=== PATIENT | female | born 1945 | race American Indian/Alaskan Native ===

== ENCOUNTER 2017-06-29 10:34 | Inpatient (IN) | payer MEDICARE, MEDICAID ==
--- NOTE | 2017-06-29 11:51 | C.PDOC ---
History Of Present Illness Patient [place] for evaluation of left ankle injury. As per patient and EMS, her left ankle is painful and swollen, and she does not know why. Patient states she went to bed last night and was fine. Time Seen by Provider: 06/29/17 11:06 Chief Complaint (Nursing): Lower Extremity Problem/Injury History Per: Patient, EMS History/Exam Limitations: no limitations Onset/Duration Of Symptoms: Unknown Current Symptoms Are (Timing): Still Present Severity: Moderate Past Medical History Reviewed: Historical Data, Nursing Documentation, Vital Signs Vital Signs: Last Vital Signs Temp 98.7 F 07/06/17 16:00 Pulse 88 07/06/17 16:00 Resp 18 07/06/17 16:00 BP 145/67 07/06/17 16:00 Pulse Ox 99 07/06/17 16:00 - Medical History PMH: HTN Family History: States: Other Other Family History: noncontributory - Social History Hx Alcohol Use: No Hx Substance Use: No - Immunization History Hx Tetanus Toxoid Vaccination: No Hx Influenza Vaccination: Yes Hx Pneumococcal Vaccination: No Review Of Systems Except As Marked, All Systems Reviewed And Found Negative. Constitutional: Negative for: Fever, Chills Cardiovascular: Negative for: Chest Pain, Palpitations Respiratory: Negative for: Shortness of Breath Musculoskeletal: Positive for: Other (left ankle pain, swelling) Physical Exam - Physical Exam Appears: Well, Non-toxic, In Acute Distress (in moderate pain) Skin: Warm, Dry, No Rash Oral Mucosa: Moist Cardiovascular: Rhythm Regular Respiratory: Normal Breath Sounds, No Rales, No Rhonchi, No Wheezing Gastrointestinal/Abdominal: Normal Exam, Bowel Sounds, Soft, No Tenderness Back: Other (left ankle deformed laterally and moderately swollen, (+) diffusely TTP, no erythema, ROM limited, sensation in toes/foot intact, cap refull < 2sec all digitd ) Extremity: Tenderness, No Calf Tenderness, Capillary Refill (< 2 sec all digits) , Deformity, Swelling Pulses: Left Dorsalis Pedis: Normal, Right Dorsalis Pedis: Normal Neurological/Psych: Oriented x3, Normal Sensation ED Course And Treatment - Laboratory Results Result Diagrams: 07/06/17 07:14 07/06/17 07:14 ECG: Interpreted By Me, Viewed By Me (NSR 74 bpm, normal axis, no acute ST/T wave changes) ECG Interpretation: Normal O2 Sat by Pulse Oximetry: 99 (RA) Pulse Ox Interpretation: Normal - Other Rad LEFT ANKLE X-RAY X-Ray: Viewed By Me, Read By Radiologist Interpretation: Findings: Suboptimal evaluation given suboptimal patient positioning. Complete fracture deformity through the medial malleolus of the distal tibia with inferior distraction of the medial malleolar fragment measuring approximately 1.4 centimeters. Complete transverse oblique fracture through the distal fibula with prominent lateral sided distraction of the fracture fragment distally measuring 7 millimeters. Adjacent comminuted fracture fragments. Prominent circumferential subcutaneous soft tissue swelling. Disruption of the ankle mortise both medially and laterally with displacement of the tibia and fibula. Comminuted fracture fragments seen at the anterior aspect of the ankle. Probable involvement of the syndesmosis. Linear sclerosis through the posterior superior calcaneus, nonspecific. Fracture deformity at this level can't be excluded. Impression: Suboptimal evaluation given suboptimal patient positioning. Complete fracture deformity through the medial malleolus of the distal tibia with inferior distraction of the medial malleolar fragment measuring approximately 1.4 centimeters. Complete transverse oblique fracture through the distal fibula with prominent lateral sided distraction of the fracture fragment distally measuring 7 millimeters. Adjacent comminuted fracture fragments. Prominent circumferential subcutaneous soft tissue swelling. Disruption of the ankle mortise both medially and laterally with displacement of the tibia and fibula. Comminuted fracture fragments seen at the anterior aspect of the ankle. Probable involvement of the syndesmosis. Linear sclerosis through the posterior superior calcaneus, nonspecific. Fracture deformity at this level can't be excluded. Correlation with bony CT may be helpful if clinically indicated. Progress Note: Blood work, Xray of ankle ordered and reviewed. Patient given IV NS bolus, IV morphine for pain. Etiology of fall unclear, as patient states she was fine yesterday night and woke up today with ankle injured. Patient is AAOx3, does have prior h/o syncope- ? syncopal episode at night. 12:05pm- Spoke with Dr. Dubon, he requests Mario smith PA to see patient and then would like CT scan of area after closed reduction. Mario spoken with, will call back after Xray looked at. 12:15pm- Donally will come in for closed reduction. Will have patient sign consents for conscious sedation, reduction. 2:39pm- Patient reduced a second time by myself and ortho NUSRAT Martin, tolerated procedure well. Patient given 50mg IV Proropofol - (+) successful reduction as per 2nd postreduction Xray. - Physician Consult Information Physician Contacted: Maria Antonia Patel Outcome Of Conversation: Spoke with PMD, requests Dr. Dubon for orthopedics. Critical Care Time - Critical Care Note Total Time (in mins): 45 Documented critical care: time excludes all time spent performing seperately billable procedures. Orthopedic Time Performed: 12:50 Time Out: Side verified (left ankle) Procedure: Splint, Joint reduction Type: Posterior Location: Left, Leg (ankle) Consent obtained: Written Performed by: Attending Physician Diagnosis: Fracture, Dislocation Type: Closed Location: Left Bone: Tibia, Fibula Anesthetic Technique: Procedural sedation Procedural Sedation: Propofol Other:: 50mg IVP Capillary refill: Normal Distal Sensation: Normal Distal Motor Function: Decreased Capillary Refill: Normal Compartment: Normal Distal Sensation: Normal Distal Motor Function: Normal Post-reduction Radiograph: Good Alignment Patient tolerated procedure: Well Disposition - Disposition Disposition: HOSPITALIZED Disposition Time: 13:35 Condition: STABLE - POA Present On Arrival: Falls Or Trauma - Clinical Impression Clinical Impression: Fracture of distal end of tibia, Fracture of fibula, distal, left, closed, Ankle dislocation, Syncope Decision To Admit - Pt Status Changed To: Hospital Disposition Of: Inpatient - Admit Certification Admit to Inpatient:: After my assessment, the patient will require hospitalization for at least two midnights. This is because of the severity of symptoms shown, intensity of services needed, and/or the medical risk in this patient being treated as an outpatient. - InPatient: Physician Admission Certification: I certify that this patient requires 2 or more midnights of care for the following reason:: see notes - . Bed Request Type: Telemetry Admitting Physician: Maria Antonia Patel Patient Diagnosis: Fracture of distal end of tibia, Fracture of fibula, distal, left, closed, Ankle dislocation, Syncope Proc Sedation PRE-PROCEDURE - Pre-Anesthesia Chief Complaint: Lower Extremity Problem/Injury Past Medical History: Medications Reviewed, Allergies Reviewed, Record Review Previous Surgies: Reviewed Family History/Social History: Reviewed - Physical Exam/Review of Systems Vital Signs Reviewed: Yes Cardiovascular: Regular Rate and Rhythm, Normal S1, S2 Respiratory/Chest: Clear to Auscultation, Good Air Exchange Neurological: GCS=15, CN II-XII Intact, Speech Normal Mental Status: Alert and Oriented X 3 - Pre-Procedure Airway Assessment History of difficult intubation or surgical airway (i.e trach):: No Inability to extend neck:: No Mouth opening less than two finger breadth:: No Diagnosis of sleep apnea:: No ASA Criteria: 1 - Healthy, normal. 2 - Mild systemic disease (No functional limitations, mildline obesity, DM withot complications, Hypertention). 3 - Severe systemic disease (Some functional limitation, stable angina, morbid obesity, controlled COPD/Asthma/CHF). 4 - Sever systemic disease constant threat to life (Unstable angina, active symptoms of COPD/Asthma, CHF/ Hypertension. 5 - Moribund Proc Sedation POST-PROCEDURE - Post Procedure Physician Note Post Procedure Note: Patient tolerated well - Discharge Checklist Written MD order for Discharge: No (patient to be admitted ) Vital signs assessed and are consistent with pre-procedure reading: Yes Minimal nausea, vomiting, and dizziness: Yes Alert and oriented to pre-procedural level: Yes Proc Sedation INTRA-PROCEDURE - Medications Medications Given: Discontinued Medications Acetaminophen (Tylenol 325mg Tab) 650 mg PO Q4 PRN PRN Reason: Fever >100.4 F Last Admin: 07/06/17 09:10 Dose: 650 mg [facility] Pain/Vitals Document 07/06/17 09:10 PM (Rec: 07/06/17 09:12 PM [id number]) Pain Reassessment Is This A Pain ReAssessment? No Sleep Is patient sleeping during reassessment? No Presence of Pain Presence of Pain Yes Pain Scale Used Pain Scale Used Numeric Location Left, Right or Bilateral Left Upper or Lower Lower Pain Location Body Site Foot Description Intermittent Intensity 8 Scale Used Numeric Radiation Location none Variations/Patterns none Site Observation fine Duration (Minutes) 5 Pain Behavior Facial Grimacing Aggravating Factors Changing Position Alleviating Factors Medication Re-Assess: [facility] Pain/Vitals Document 07/06/17 10:10 KF (Rec: 07/06/17 12:22 KF [id number]) Pain Reassessment Is This A Pain ReAssessment? Yes Sleep Is patient sleeping during reassessment? No Presence of Pain Presence of Pain No Pain Scale Used Pain Scale Used Numeric Acetaminophen (Tylenol 325mg Tab) 650 mg PO Q4 PRN PRN Reason: Pain, Mild (1-3) Last Admin: 07/06/17 04:21 Dose: 650 mg MAR Pain/Vitals Document 07/06/17 04:21 JA (Rec: 07/06/17 04:23 [facility] [id number]) Pain Reassessment Is This A Pain ReAssessment? No Sleep Is patient sleeping during reassessment? No Presence of Pain Presence of Pain Yes Pain Scale Used Pain Scale Used Numeric Location Left, Right or Bilateral Left Pain Location Body Site Foot Description Intermittent Intensity 3 Scale Used Numeric Pain Behavior Facial Grimacing Aggravating Factors Changing Position Alleviating Factors Medication Re-Assess: [facility] Pain/Vitals Document 07/06/17 05:21 JA (Rec: 07/06/17 05:25 [facility] [id number]) Pain Reassessment Is This A Pain ReAssessment? Yes Sleep Is patient sleeping during reassessment? Yes Amlodipine Besylate (Norvasc) 2.5 mg PO DAILY [facility] Last Admin: 07/01/17 09:55 Dose: 2.5 mg Amlodipine Besylate (Norvasc) 10 mg PO DAILY [facility] Last Admin: 07/06/17 09:09 Dose: 10 mg Dextrose (Glutose 15) 15 gm PO STAT STA Stop: 07/01/17 21:25 Last Admin: 07/01/17 21:32 Dose: 15 gm Dextrose (Dextrose 50% Inj) 50 ml IV STAT STA Stop: 07/01/17 21:49 Last Admin: 07/01/17 21:55 Dose: 50 ml eMAR Start Stop Document 07/01/17 21:55 MSO (Rec: 07/01/17 21:55 MSO [id number]) Intravenous Solution Start Date 07/01/17 Start Time 21:55 Enoxaparin Sodium (Lovenox) 40 mg SC ONCE ONE Stop: 06/29/17 18:57 Last Admin: 06/29/17 19:12 Dose: 40 mg Subcutaneous Administrations Document 06/29/17 19:12 MAP (Rec: 06/29/17 19:12 MAP [id number]) Injection Site MAR Injection Site Right Abdomen Charges for Administration # of Subcutaneous Administrations 1 Glucagon (Glucagen Diagnostic Kit) 1 mg SC ONCE PRN PRN Reason: HYPOGLYCEMIA Glycerin (Glycerin Adult Suppository) 1 sup RC DAILY PRN PRN Reason: Constipation Home Med (Glucagon Hcl) 1 mg IM PRN PRN PRN Reason: Hypoglycemia Hydrochlorothiazide (Microzide) 12.5 mg PO DAILY [facility] Last Admin: 07/06/17 09:09 Dose: 12.5 mg Hydromorphone HCl (Dilaudid) 1 mg IVP Q4H PRN PRN Reason: Pain, severe (8-10) Hydromorphone HCl (Dilaudid) 1 mg IVP Q4H PRN PRN Reason: Pain, severe (8-10) Last Admin: 07/04/17 07:44 Dose: 1 mg [facility] Pain Assessment Document 07/04/17 07:44 EAB (Rec: 07/04/17 07:55 EAB [id number]) Pain Reassessment Is this a pain reassessment? No Sleep Is patient sleeping during reassessment? No Presence of Pain Presence of Pain Yes Pain Scale Used Pain Scale Used Numeric Location Left, Right or Bilateral Left Pain Location Body Site Foot Description Description Constant Intensity of Pain at present 8 Acceptable Level of Pain 2 Pain Behavior Facial Grimacing Aggravating Factors Changing Position Alleviating Factors/Management Position Change Techniques Alleviating Factors Position Change IVP Administration Document 07/04/17 07:44 EAB (Rec: 07/04/17 07:55 EAB [id number]) Charges for Administration # of IVP Administrations 1 Re-Assess: [facility] Pain Assessment Document 07/04/17 08:14 EAB (Rec: 07/04/17 09:18 EAB [id number]) Pain Reassessment Is this a pain reassessment? Yes Sleep Is patient sleeping during reassessment? Yes Hydromorphone HCl (Dilaudid) 0.5 mg IVP Q10M PRN PRN Reason: Pain, moderate (4-7) Stop: 07/03/17 18:41 Last Admin: 07/03/17 18:45 Dose: 0.5 mg Bacitracin 50,000 unit/ Sodium (Chloride) 1,000 mls @ 1,000 mls/hr IR .Q1H [facility] Stop: 07/03/17 16:13 Insulin Aspart (Novolog) 0 unit SC ACHS [facility] PRN Reason: Protocol Last Admin: 06/29/17 22:46 Dose: 3 unit MAR Blood Glucose Document 06/29/17 22:46 EDG (Rec: 06/29/17 22:47 EDG [id number]) Blood Glucose Finger Stick Blood Glucose (70-120) 436 Subcutaneous Administrations Document 06/29/17 22:46 EDG (Rec: 06/29/17 22:47 EDG [id number]) Injection Site MAR Injection Site Right Arm Charges for Administration # of Subcutaneous Administrations 1 Insulin Aspart (Novolog Mix 70/30 (70/30 Units/Ml)) 15 units SC BID [facility] Last Admin: 07/01/17 17:46 Dose: 15 units MAR Blood Glucose Document 07/01/17 17:46 MSO (Rec: 07/01/17 17:47 MSO [id number]) Blood Glucose Finger Stick Blood Glucose (70-120) 171 Subcutaneous Administrations Document 07/01/17 17:46 MSO (Rec: 07/01/17 17:47 MSO [id number]) Injection Site MAR Injection Site Right Arm Charges for Administration # of Subcutaneous Administrations 1 Insulin Aspart (Novolog) 0 unit SC ACHS [facility] PRN Reason: Protocol Last Admin: 07/06/17 16:53 Dose: 2 unit Comments: 192 MAR Blood Glucose Document 07/06/17 16:53 [facility]AY[facility] (Rec: 07/06/17 16:53 [facility] [id number]) Blood Glucose Finger Stick Blood Glucose (70-120) 192 Subcutaneous Administrations Document 07/06/17 16:53 [facility] (Rec: 07/06/17 16:53 [id number] Injection Site MAR Injection Site Right Arm Charges for Administration # of Subcutaneous Administrations 1 Insulin Aspart (Novolog Mix 70/30 (70/30 Units/Ml)) 17 units SC BID [facility] Last Admin: 07/06/17 09:16 Dose: 17 units Subcutaneous Administrations Document 07/06/17 09:16 PM (Rec: 07/06/17 09:16 PM [id number]) Injection Site MAR Injection Site Right Arm Charges for Administration # of Subcutaneous Administrations 1 Losartan Potassium (Cozaar) 25 mg PO DAILY [facility] Last Admin: 07/06/17 09:09 Dose: 25 mg Magnesium Hydroxide (Milk Of Magnesia) 30 ml PO DAILY PRN PRN Reason: Constipation Metformin HCl (Glucophage) 1,000 mg PO BID [facility] Last Admin: 07/01/17 17:46 Dose: 1,000 mg Morphine Sulfate (Morphine) 2 mg IVP STAT STA Stop: 06/29/17 11:46 Last Admin: 06/29/17 12:05 Dose: 2 mg MAR Pain Assessment Document 06/29/17 12:05 MAP (Rec: 06/29/17 12:14 MAP [id number]) Pain Reassessment Is this a pain reassessment? No IVP Administration Document 06/29/17 12:05 MAP (Rec: 06/29/17 12:14 MAP [id number]) Charges for Administration # of IVP Administrations 1 Morphine Sulfate (Morphine) 2 mg IVP STAT STA Stop: 06/29/17 13:38 Last Admin: 06/29/17 14:22 Dose: 2 mg MAR Pain Assessment Document 06/29/17 14:22 MAP (Rec: 06/29/17 14:25 MAP [id number]) Pain Reassessment Is this a pain reassessment? Yes Sleep Is patient sleeping during reassessment? Yes Pain Scale Used Pain Scale Used Numeric Description Intensity of Pain at present 7 IVP Administration Document 06/29/17 14:22 MAP (Rec: 06/29/17 14:25 MAP [id number]) Charges for Administration # of IVP Administrations 1 Oxycodone/Acetaminophen (Percocet 5/325 Mg Tab) 1 tab PO Q4H PRN PRN Reason: Pain, Moderate 4-7 Stop: 07/03/17 12:02 Last Admin: 07/02/17 17:36 Dose: 1 tab MAR Pain Assessment Document 07/02/17 17:36 MSO (Rec: 07/02/17 17:36 MSO [id number]) Pain Reassessment Is this a pain reassessment? No Sleep Is patient sleeping during reassessment? No Presence of Pain Presence of Pain Yes Pain Scale Used Pain Scale Used Numeric Location Left, Right or Bilateral Left Pain Location Body Site Leg Ankle Foot Description Description Constant Intensity of Pain at present 4 Acceptable Level of Pain 3 Pain Behavior Facial Grimacing Aggravating Factors Exercise/Activity Alleviating Factors/Management Medication Techniques Elevation Alleviating Factors Medication Oxycodone/Acetaminophen (Percocet 5/325 Mg Tab) 1 tab PO Q6H PRN PRN Reason: Pain, moderate (4-7) Stop: 07/08/17 11:50 Last Admin: 07/05/17 23:21 Dose: 1 tab [facility] Pain Assessment Document 07/05/17 23:21 [facility] (Rec: 07/05/17 23:22 [facility] [id number]) Pain Reassessment Is this a pain reassessment? No Sleep Is patient sleeping during reassessment? No Presence of Pain Presence of Pain Yes Pain Scale Used Pain Scale Used Numeric Location Left, Right or Bilateral Left Pain Location Body Site Foot Description Description Intermittent Intensity of Pain at present 7 Pain Behavior Facial Grimacing Aggravating Factors Changing Position Alleviating Factors/Management Medication Techniques Distraction Relaxation Techniques Alleviating Factors Medication Re-Assess: [facility] Pain Assessment Document 07/06/17 00:21 [facility] (Rec: 07/06/17 02:26 [facility] [id number]) Pain Reassessment Is this a pain reassessment? Yes Sleep Is patient sleeping during reassessment? Yes Oxycodone/Acetaminophen (Percocet 5/325 Mg Tab) 2 tab PO Q4H PRN PRN Reason: Pain, severe (8-10) Stop: 07/08/17 11:50 Last Admin: 07/06/17 16:36 Dose: 2 tab [facility] Pain Assessment Document 07/06/17 16:36 [facility] (Rec: 07/06/17 16:37 [facility] [id number]) Pain Reassessment Is this a pain reassessment? No Sleep Is patient sleeping during reassessment? No Presence of Pain Presence of Pain Yes Pain Scale Used Pain Scale Used Numeric Location Left, Right or Bilateral Left Pain Location Body Site Foot Description Description Intermittent Intensity of Pain at present 10 Acceptable Level of Pain 2 Pain Behavior Withdrawal from Touch Facial Grimacing Aggravating Factors Changing Position Alleviating Factors/Management Medication Techniques Distraction Relaxation Techniques Alleviating Factors Medication Pantoprazole Sodium (Protonix Ec Tab) 40 mg PO DAILY [facility] Last Admin: 07/06/17 09:09 Dose: 40 mg Pneumococcal Polyvalent Vaccine (Pneumovax 23 Vaccine) 0.5 ml IM .ONCE ONE Stop: 07/01/17 10:01 Last Admin: 07/01/17 10:49 Dose: Potassium Chloride (Potassium Chloride Oral Soln) 20 meq PO ONCE ONE Stop: 07/01/17 14:44 Last Admin: 07/01/17 15:02 Dose: 20 meq Potassium Chloride (Klor-Con 10) 40 meq PO STAT STA Stop: 07/05/17 19:02 Last Admin: 07/05/17 19:26 Dose: 40 meq Propofol (Diprivan) 200 mg IV ONCE ONE Stop: 06/29/17 12:19 Propofol (Diprivan) 100 mg IV ONCE ONE Stop: 06/29/17 15:53 Sitagliptin Phosphate (Januvia) 50 mg PO DAILY [facility] Last Admin: 07/01/17 09:55 Dose: 50 mg Vital Signs: 50MG PROPOOL IVP GIVEN BY ME
[2017-06-29] MEDS ORDERED: Propofol 10 mg/ml Inj (20 ML) IV ONE ×2 (12:18→15:52)
[2017-06-29 12:35] LABS: BASO # 0.1 K/uL (0.0-0.2); BASO % 0.9 % (0.0-2.0); EOS # 0.1 K/uL (0.0-0.7); EOS % 0.5 % (0.0-4.0); HEMATOCRIT 35.8 % (34.0-47.0); LYMPH # 1.7 K/uL (1.0-4.3); LYMPH % 13.8 % (20.0-40.0); MEAN CELL VOLUME 91.7 fL (81.0-99.0); MEAN CORPUSCULAR HEMOGLOBIN 31.2 pg (27.0-31.0); MEAN PLATELET VOLUME 9.2 fL (7.2-11.7); MONO # 0.6 K/uL (0.0-0.8); RED CELL DISTRIBUTION WIDTH 13.6 % (11.5-14.5); WHITE BLOOD COUNT 12.6 K/uL (4.8-10.8)
[2017-06-29 12:43] LABS: CHLORIDE 101 mmol/L (98-107); INR 1.1; POTASSIUM 4.4 mmol/L (3.6-5.2); SODIUM 138 mmol/L (132-148)
[2017-06-29 12:45] LABS: ALB/GLOB RATIO 1.2 (1.0-2.1); ALKALINE PHOSPHATASE 104 U/L (38-126); AST/SGOT 25 U/L (14-36); BILIRUBIN,TOTAL 0.5 mg/dL (0.2-1.3); CARBON DIOXIDE 25 mmol/L (22-30); GFR AFRICAN-AMERICAN > 60; TOTAL PROTEIN 6.7 g/dL (6.3-8.3)
[2017-06-29 12:46] LABS: ALT/SGPT 24 U/L (9-52); BLOOD UREA NITROGEN 8 mg/dL (7-17); CALCIUM 9.1 mg/dl (8.6-10.4); GLUCOSE,RANDOM 316 mg/dL (65-105)
[2017-06-29] MEDS ORDERED: Propofol 10 mg/ml Inj (20 ML) ONE ×2 (12:47→14:41)
--- NOTE | 2017-06-29 13:00 | RAD ---
Left ankle three views History: Fracture dislocation. Comparison: None available. Findings: Suboptimal evaluation given suboptimal patient positioning. Complete fracture deformity through the medial malleolus of the distal tibia with inferior distraction of the medial malleolar fragment measuring approximately 1.4 centimeters. Complete transverse oblique fracture through the distal fibula with prominent lateral sided distraction of the fracture fragment distally measuring 7 millimeters. Adjacent comminuted fracture fragments. Prominent circumferential subcutaneous soft tissue swelling. Disruption of the ankle mortise both medially and laterally with displacement of the tibia and fibula. Comminuted fracture fragments seen at the anterior aspect of the ankle. Probable involvement of the syndesmosis. Linear sclerosis through the posterior superior calcaneus, nonspecific. Fracture deformity at this level can't be excluded. Impression: Suboptimal evaluation given suboptimal patient positioning. Complete fracture deformity through the medial malleolus of the distal tibia with inferior distraction of the medial malleolar fragment measuring approximately 1.4 centimeters. Complete transverse oblique fracture through the distal fibula with prominent lateral sided distraction of the fracture fragment distally measuring 7 millimeters. Adjacent comminuted fracture fragments. Prominent circumferential subcutaneous soft tissue swelling. Disruption of the ankle mortise both medially and laterally with displacement of the tibia and fibula. Comminuted fracture fragments seen at the anterior aspect of the ankle. Probable involvement of the syndesmosis. Linear sclerosis through the posterior superior calcaneus, nonspecific. Fracture deformity at this level can't be excluded. Correlation with bony CT may be helpful if clinically indicated.
--- NOTE | 2017-06-29 13:14 | CP.PCM.CON ---
History of Present Illness - History of Present Illness History of Present Illness: Orthopedic consultation requested Dr. Mcginnis for left ankle pain/deformity 71F PMH: HTN complains of left ankle pain and deformity when she woke up this morning. She does not recall history of fall or trauma. She is unable to walk due to pain at this time. She ambulates "a lot" with cane prior to this injury. [facility] resident. Denies pain in other extremities. Denies numbness/tingling. Denies headache/CP/SOB/dizziness/fever/chills/n/v at this time. PMH: HTN allergies: iodine contrast dye Review of Systems - Review of Systems All systems: reviewed and no additional remarkable complaints except - Constitutional Constitutional: As Per HPI - Cardiovascular Cardiovascular: As Per HPI - Respiratory Respiratory: As Per HPI - Gastrointestinal Gastrointestinal: As Per HPI - Musculoskeletal Musculoskeletal: As Per HPI - Integumentary Integumentary: Swelling - Neurological Neurological: As Per HPI - Hematologic/Lymphatic Hematologic: absent: As Per HPI, Easy Bleeding, Easy Bruising, Lymphadenopathy, Other Past Patient History - Infectious Disease Hx of Infectious Diseases: None - Past Medical History & Family History Past Medical History?: Yes Past Family History: Reviewed and not pertinent - Past Social History Smoking Status: Former Smoker - CARDIAC Hx Hypertension: Yes - NEUROLOGICAL Hx Syncope: Yes - ENDOCRINE/METABOLIC Hx Diabetes Mellitus Type 2: Yes - PSYCHIATRIC Hx Substance Use: No - SURGICAL HISTORY Hx Surgeries: No - ANESTHESIA Hx Anesthesia: No Meds Allergies/Adverse Reactions: Allergies Allergy/AdvReac Type Severity Reaction Status Date / Time Iodinated Contrast- Oral and Allergy Intermediate Verified 06/29/17 11:17 IV Dye shellfish derived Allergy Intermediate Verified 06/29/17 11:17 Physical Exam - Constitutional Appears: Well, In Acute Distress - Head Exam Head Exam: ATRAUMATIC, NORMAL INSPECTION - Respiratory Exam Respiratory Exam: NORMAL BREATHING PATTERN - Cardiovascular Exam Cardiovascular Exam: REGULAR RHYTHM - Extremities Exam Additional comments: LLE: obviously deformed left ankle dislocation. Patient states she can't move her toes and has severe pain when she attempts. +DP/PT pulses, but weak. +cap refill but toes cool. sensation intact to foot. Noted swelling to ankle. Left knee: no swelling/deformity/discoloration BUE: full ROM, NVID, no swelling/deformity/discoloration RLE: full ROM, NVID, no swelling/ deformity/discoloration Consent for conscious sedation and closed reduction of ankle obtained. Risks/ benefits/alt of closed reduction explained to patient, especially in light of potential vascular compromise. Advised patient that fracture itself will need surgical fixation in the future regardless of reduction. Patient consents to procedure. Post reduction, patient able to fully flex/ext toes. Sensation intact, +DP/PT pulses and toes and foot warmer. Patient more comfortable Well padded posterior/u splint applied and ankle elevated. - Expanded Lower Extremities Exam Left Ankle exam: dislocation, swelling - Neurological Exam Neurological exam: Alert, Oriented x3 - Psychiatric Exam Psychiatric exam: Normal Affect, Normal Mood - Skin Skin Exam: Dry, Intact, Normal Color, Warm Results - Vital Signs Recent Vital Signs: Last Vital Signs Temp 98.4 F 06/29/17 12:00 Pulse 78 06/29/17 12:00 Resp 18 06/29/17 12:00 BP 156/51 H 06/29/17 12:00 Pulse Ox 99 06/29/17 12:18 - Labs Result Diagrams: 06/29/17 12:22 06/29/17 12:22 Labs: Laboratory Results - last 24 hr 06/29/17 06/29/17 06/29/17 12:22 12:22 12:22 WBC 12.6 H RBC 3.91 Hgb 12.2 Hct 35.8 MCV 91.7 MCH 31.2 H MCHC 34.0 RDW 13.6 Plt Count 309 MPV 9.2 Neut % (Auto) 79.8 H Lymph % (Auto) 13.8 L Yates % (Auto) 5.0 Eos % (Auto) 0.5 Baso % (Auto) 0.9 Neut # 10.0 H Lymph # 1.7 Yates # 0.6 Eos # 0.1 Baso # 0.1 PT 11.9 INR 1.1 APTT 31 Sodium 138 Potassium 4.4 Chloride 101 Carbon Dioxide 25 Anion Gap 17 BUN 8 Creatinine 0.7 Est GFR ( Amer) > 60 Est GFR (Non-Af Amer) > 60 Random Glucose 316 H Calcium 9.1 Total Bilirubin 0.5 AST 25 ALT 24 Alkaline Phosphatase 104 Total Protein 6.7 Albumin 3.6 Globulin 3.1 Albumin/Globulin Ratio 1.2 Assessment & Plan (1) Displaced trimalleolar fracture of left ankle Assessment and Plan: Called by Dr. Mcginnis to complete reduction and consultation CR #1 post reduction films demonstrated continued dislocation of left ankle patient reconsented, agreed to procedure again CR#2 post reduction films demonstrate reduction of dislocation with some lateral translation of talus, unstable fracture easily dislocates again during reduction splint reapplied post/u d/w Dr. Mcginnis CT left ankle report states possible calcaneous fx, will review CT to include calcaneous elevation, ice, maintain splint patient admitted under medicine as she has no recollection of fall or trauma will need ORIF when swelling improved PT VTE proph will follow Status: Acute (2) Dislocation of ankle, left, closed Assessment and Plan: see above, s/p CR Status: Acute Radiology Interpretation - Radiology Interpretation #2 Interpretation: Patient Name / ID : ROMI SANTOS / [id number] Exam Date : 06/29/2017 11:45:29 ( Approved ) Study Comment : Sex / Age : F / 71Y Creator : David Levine MD Dictator : David Levine MD Journeyman Electrician Pv Installer : [employer] : David Levine MD Approver2 : Report Date : 06/29/2017 12:58:41 My Comment : Left ankle three views History: Fracture dislocation. Comparison: None available. Findings: Suboptimal evaluation given suboptimal patient positioning. Complete fracture deformity through the medial malleolus of the distal tibia with inferior distraction of the medial malleolar fragment measuring approximately 1.4 centimeters. Complete transverse oblique fracture through the distal fibula with prominent lateral sided distraction of the fracture fragment distally measuring 7 millimeters. Adjacent comminuted fracture fragments. Prominent circumferential subcutaneous soft tissue swelling. Disruption of the ankle mortise both medially and laterally with displacement of the tibia and fibula. Comminuted fracture fragments seen at the anterior aspect of the ankle. Probable involvement of the syndesmosis. Linear sclerosis through the posterior superior calcaneus, nonspecific. Fracture deformity at this level can't be excluded. Impression: Suboptimal evaluation given suboptimal patient positioning. Complete fracture deformity through the medial malleolus of the distal tibia with inferior distraction of the medial malleolar fragment measuring approximately 1.4 centimeters. Complete transverse oblique fracture through the distal fibula with prominent lateral sided distraction of the fracture fragment distally measuring 7 millimeters. Adjacent comminuted fracture fragments. Prominent circumferential subcutaneous soft tissue swelling. Disruption of the ankle mortise both medially and laterally with displacement of the tibia and fibula. Comminuted fracture fragments seen at the anterior aspect of the ankle. Probable involvement of the syndesmosis. Linear sclerosis through the posterior superior calcaneus, nonspecific. Fracture deformity at this level can't be excluded. Correlation with bony CT may be helpful if clinically indicated. - Radiology Interpretation #3 Interpretation: Patient Name / ID : ROMI SANTOS / [id number] Exam Date : 06/29/2017 13:50:36 ( Approved ) Study Comment : Sex / Age : F / 71Y Creator : David Levine MD Dictator : David Levine MD Journeyman Electrician Pv Installer : [employer]teration : David Levine MD Approver2 : Report Date : 06/29/2017 15:01:57 My Comment : Left ankle three views History: Postreduction. Comparison: 06/29/2017 Findings: Overlying cast obscures fine osseous detail. Anterior distraction of the distal tibia in relationship to the talus. Complete fracture deformity through the medial malleolus of the distal tibia with inferior distraction of the medial malleolar fragment measuring approximately 1.4 centimeters. Complete transverse oblique fracture through the distal fibula with prominent lateral sided distraction of the fracture fragment posteriorly measuring 11 millimeters. Adjacent comminuted fracture fragments. Prominent circumferential subcutaneous soft tissue swelling. Disruption of the ankle mortise both medially and laterally with displacement of the tibia and fibula. Comminuted fracture fragments seen at the anterior aspect of the ankle. Probable involvement of the syndesmosis. Linear sclerosis through the posterior superior calcaneus, nonspecific. Fracture deformity at this level can't be excluded. Impression: Overlying cast obscures fine osseous detail. Anterior distraction of the distal tibia in relationship to the talus. Complete fracture deformity through the medial malleolus of the distal tibia with inferior distraction of the medial malleolar fragment measuring approximately 1.4 centimeters. Complete transverse oblique fracture through the distal fibula with prominent lateral sided distraction of the fracture fragment posteriorly measuring 11 millimeters. Adjacent comminuted fracture fragments. Prominent circumferential subcutaneous soft tissue swelling. Disruption of the ankle mortise both medially and laterally with displacement of the tibia and fibula. Comminuted fracture fragments seen at the anterior aspect of the ankle. Probable involvement of the syndesmosis. Linear sclerosis through the posterior superior calcaneus, nonspecific. Fracture deformity at this level can't be excluded. Procedures Attestation:: I certify that I have explained the specified Operation(s) or Procedure(s), risks, benefits and reasonable alternatives to the Patient and/or other person responsible. The opportunity was given to ask questions and all questions answered - Orthopedic Joint Reduction Joint #1 Consent Obtained: written consent Time Out Performed: Yes Side: left Joint Reduction Location: ankle Analgesia: procedural sedation Technique Used: direct manipulation (clinically evident reduction) Post-Reduction Neuro Exam: intact Post-Reduction Vascular Exam: intact Post Reduction X-Ray Obtained: Yes Post Reduction X-Ray Results: not reduced (Patient reconsented and explained to patient that reduction was not maintained, and that CR will be attempted again. patient agreed to repeat procedure.) Splint Applied: Yes Patient Tolerated Procedure: well Joint #2 Consent Obtained: written consent Time Out Performed: Yes Side: left Joint Reduction Location: ankle Analgesia: procedural sedation Technique Used: direct manipulation Post-Reduction Neuro Exam: intact Post-Reduction Vascular Exam: intact Post Reduction X-Ray Obtained: Yes Post Reduction X-Ray Results: reduced (lateral translation still noted) Splint Applied: Yes (new posterior and u splint applied, fracture dislocation noted unstable) Patient Tolerated Procedure: well - Orthopedic Splinting/Casting Injury #1 Side: left Lower Extremity Injury Location: ankle Lower Extremity Immobilizer: posterior splint, stirrup splint Additional comments: well padded posterior/u splint applied post reduction, ankle elevated
[2017-06-29] MEDS ORDERED: Propranolol 1 mg/mL Inj IVP ONE (14:49)
--- NOTE | 2017-06-29 15:03 | RAD ---
Left ankle three views History: Postreduction. Comparison: 06/29/2017 Findings: Overlying cast obscures fine osseous detail. Anterior distraction of the distal tibia in relationship to the talus. Complete fracture deformity through the medial malleolus of the distal tibia with inferior distraction of the medial malleolar fragment measuring approximately 1.4 centimeters. Complete transverse oblique fracture through the distal fibula with prominent lateral sided distraction of the fracture fragment posteriorly measuring 11 millimeters. Adjacent comminuted fracture fragments. Prominent circumferential subcutaneous soft tissue swelling. Disruption of the ankle mortise both medially and laterally with displacement of the tibia and fibula. Comminuted fracture fragments seen at the anterior aspect of the ankle. Probable involvement of the syndesmosis. Linear sclerosis through the posterior superior calcaneus, nonspecific. Fracture deformity at this level can't be excluded. Impression: Overlying cast obscures fine osseous detail. Anterior distraction of the distal tibia in relationship to the talus. Complete fracture deformity through the medial malleolus of the distal tibia with inferior distraction of the medial malleolar fragment measuring approximately 1.4 centimeters. Complete transverse oblique fracture through the distal fibula with prominent lateral sided distraction of the fracture fragment posteriorly measuring 11 millimeters. Adjacent comminuted fracture fragments. Prominent circumferential subcutaneous soft tissue swelling. Disruption of the ankle mortise both medially and laterally with displacement of the tibia and fibula. Comminuted fracture fragments seen at the anterior aspect of the ankle. Probable involvement of the syndesmosis. Linear sclerosis through the posterior superior calcaneus, nonspecific. Fracture deformity at this level can't be excluded.
--- NOTE | 2017-06-29 15:39 | RAD ---
PROCEDURE: Left Ankle Radiographs. HISTORY: LEFT ANKLE POST REDUCTION #2 COMPARISON: June 28, 2017. Study performed 13:54 FINDINGS: BONES: Improved anatomic alignment of fracture dislocation left ankle, findings best seen on the lateral view. JOINTS: Disruption of the ankle mortise medially and laterally is lessened compared to the prior study from approximately 1 hour ago. SOFT TISSUES: Soft tissue swelling attests to the acuity of the fracture dislocation. OTHER FINDINGS: None. IMPRESSION: Improved anatomic alignment fracture dislocation left ankle. Limitations of the current study: Detail obscured by overlying fiberglass cast.
[2017-06-29 18:20] LABS: RBC URINE < 1 /hpf (0-3); URINE BILIRUBIN NEGATIVE (NEGATIVE); URINE BLOOD NEGATIVE (NEGATIVE); URINE COLOR Yellow (YELLOW); URINE GLUCOSE (UA) 2+ mg/dL (Normal); URINE KETONE NEGATIVE (NEGATIVE); URINE LEUKOCYTE ESTERASE TRACE Leu/uL (Negative); URINE PROTEIN NEGATIVE (NEGATIVE); URINE UROBILINOGEN NORMAL mg/dL (0.2-1.0); WBC URINE 13 /hpf (0-5)
[2017-06-29] MEDS ORDERED: Enoxaparin 40 mg Syringe SC ONE (18:56)
[2017-06-29] MEDS ORDERED: GLUCAGON HCL 1 MG IM PRN (18:59)
[2017-06-29] MEDS ORDERED: Magnesium Hydroxide Susp 30 ml UD PO PRN (18:59)
[2017-06-29] MEDS ORDERED: Enoxaparin 40 mg Syringe ONE (19:10)
--- NOTE | 2017-06-29 19:44 | CP.PCM.HP ---
Past Patient History - Infectious Disease Hx of Infectious Diseases: None - Past Medical History & Family History Past Medical History?: Yes Past Family History: Reviewed and not pertinent - Past Social History Smoking Status: Former Smoker - CARDIAC Hx Hypertension: Yes - NEUROLOGICAL Hx Syncope: Yes - ENDOCRINE/METABOLIC Hx Diabetes Mellitus Type 2: Yes - PSYCHIATRIC Hx Substance Use: No - SURGICAL HISTORY Hx Surgeries: No - ANESTHESIA Hx Anesthesia: No Meds Allergies/Adverse Reactions: Allergies Allergy/AdvReac Type Severity Reaction Status Date / Time Iodinated Contrast- Oral and Allergy Intermediate Verified 06/29/17 11:17 IV Dye shellfish derived Allergy Intermediate Verified 06/29/17 11:17 Physical Exam - Constitutional Appears: Well - Head Exam Head Exam: ATRAUMATIC, NORMAL INSPECTION, NORMOCEPHALIC - Eye Exam Eye Exam: EOMI, Normal appearance, PERRL Pupil Exam: NORMAL ACCOMODATION, PERRL - ENT Exam ENT Exam: Mucous Membranes Moist, Normal Exam - Neck Exam Neck exam: Positive for: Normal Inspection - Respiratory Exam Respiratory Exam: Decreased Breath Sounds - Cardiovascular Exam Cardiovascular Exam: REGULAR RHYTHM, +S1, +S2 - GI/Abdominal Exam GI & Abdominal Exam: Diminished Bowel Sounds, Soft - Rectal Exam Rectal Exam: Deferred Results - Vital Signs Recent Vital Signs: Last Vital Signs Temp 98.6 F 06/29/17 17:38 Pulse 70 06/29/17 17:38 Resp 16 06/29/17 17:38 BP 122/54 L 06/29/17 17:38 Pulse Ox 99 06/29/17 18:34 - Labs Result Diagrams: 06/29/17 12:22 06/29/17 12:22 Labs: Laboratory Results - last 24 hr 06/29/17 06/29/17 06/29/17 12:22 12:22 12:22 WBC 12.6 H RBC 3.91 Hgb 12.2 Hct 35.8 MCV 91.7 MCH 31.2 H MCHC 34.0 RDW 13.6 Plt Count 309 MPV 9.2 Neut % (Auto) 79.8 H Lymph % (Auto) 13.8 L Green % (Auto) 5.0 Eos % (Auto) 0.5 Baso % (Auto) 0.9 Neut # 10.0 H Lymph # 1.7 Green # 0.6 Eos # 0.1 Baso # 0.1 PT 11.9 INR 1.1 APTT 31 Sodium 138 Potassium 4.4 Chloride 101 Carbon Dioxide 25 Anion Gap 17 BUN 8 Creatinine 0.7 Est GFR ( Amer) > 60 Est GFR (Non-Af Amer) > 60 Random Glucose 316 H Calcium 9.1 Total Bilirubin 0.5 AST 25 ALT 24 Alkaline Phosphatase 104 Total Protein 6.7 Albumin 3.6 Globulin 3.1 Albumin/Globulin Ratio 1.2 Urine Color Urine Clarity Urine pH Ur Specific [place] Urine Protein Urine Glucose (UA) Urine Ketones Urine Blood Urine Nitrate Urine Bilirubin Urine Urobilinogen Ur Leukocyte Esterase Urine WBC (Auto) Urine RBC (Auto) Ur Squamous Epith Cells Blood Type Antibody Screen 06/29/17 06/29/17 12:22 17:41 WBC RBC Hgb Hct MCV MCH MCHC RDW Plt Count MPV Neut % (Auto) Lymph % (Auto) Green % (Auto) Eos % (Auto) Baso % (Auto) Neut # Lymph # Green # Eos # Baso # PT INR APTT Sodium Potassium Chloride Carbon Dioxide Anion Gap BUN Creatinine Est GFR ( Amer) Est GFR (Non-Af Amer) Random Glucose Calcium Total Bilirubin AST ALT Alkaline Phosphatase Total Protein Albumin Globulin Albumin/Globulin Ratio Urine Color Yellow Urine Clarity Clear Urine pH 5.0 Ur Specific [place] 1.009 Urine Protein Negative Urine Glucose (UA) 2+ H Urine Ketones Negative Urine Blood Negative Urine Nitrate Negative Urine Bilirubin Negative Urine Urobilinogen Normal Ur Leukocyte Esterase Trace Urine WBC (Auto) 13 H Urine RBC (Auto) < 1 Ur Squamous Epith Cells 2 Blood Type O POSITIVE Antibody Screen Negative
[2017-06-29] MEDS ORDERED: (Novolog) Insulin Aspart, Recombinant 100 u/ml 10 ml vial SC SCH (22:00)
[2017-06-29] MEDS ORDERED: (Novolog) Insulin Aspart, Recombinant 100 u/ml 10 ml vial ONE (22:46)
[2017-06-29] MEDS ORDERED: HYDROmorphone 1 mg/ml ISec IVP PRN (23:03)
[2017-06-30] MEDS: (Novolog) Insulin Aspart, Recombinant 100 u/ml 10 ml vial SC SCH ×4 (07:47→22:25)
[2017-06-30] MEDS: HYDROmorphone 0.5 mg/0.5 ml ISec IVP PRN (08:23)
[2017-06-30] MEDS: Pantoprazole 40 mg EC Tab PO SCH (10:53)
[2017-06-30] MEDS: (Novolog Mix 70/30) Insulin Aspart/Insulin Aspar 100 units/ml SC SCH ×2 (10:53→17:56)
--- NOTE | 2017-06-30 12:00 | CP.PCM.PN ---
Subjective - Date & Time of Evaluation Date of Evaluation: 06/30/17 Time of Evaluation: 07:30 - Subjective Subjective: Patient complains of continued ankle pain. Medication helps. Objective - Vital Signs/Intake and Output Vital Signs (last 24 hours): Temp Pulse Resp BP Pulse Ox 98.6 F 71 18 152/65 H 97 06/30/17 07:00 06/30/17 07:00 06/30/17 07:00 06/30/17 07:00 06/30/17 07:00 - Medications Medications: Current Medications Acetaminophen (Tylenol 325mg Tab) 650 mg PO Q4 PRN PRN Reason: Fever >100.4 F Last Admin: 06/29/17 22:54 Dose: 650 mg Acetaminophen (Tylenol 325mg Tab) 650 mg PO Q4 PRN PRN Reason: Pain, Mild (1-3) Last Admin: 06/29/17 19:12 Dose: 650 mg Amlodipine Besylate (Norvasc) 2.5 mg PO DAILY [facility] Last Admin: 06/30/17 10:42 Dose: 2.5 mg Glycerin (Glycerin Adult Suppository) 1 sup RC DAILY PRN PRN Reason: Constipation Home Med (Glucagon Hcl) 1 mg IM PRN PRN PRN Reason: Hypoglycemia Hydrochlorothiazide (Microzide) 12.5 mg PO DAILY [facility] Last Admin: 06/30/17 10:42 Dose: 12.5 mg Hydromorphone HCl (Dilaudid) 1 mg IVP Q4H PRN PRN Reason: Pain, severe (8-10) Last Admin: 06/30/17 08:23 Dose: 1 mg Insulin Aspart (Novolog Mix 70/30 (70/30 Units/Ml)) 15 units SC BID [facility] Last Admin: 06/30/17 10:53 Dose: 15 units Insulin Aspart (Novolog) 0 unit SC ACHS [facility] PRN Reason: Protocol Last Admin: 06/30/17 07:47 Dose: Not Given Losartan Potassium (Cozaar) 25 mg PO DAILY [facility] Last Admin: 06/30/17 10:43 Dose: 25 mg Magnesium Hydroxide (Milk Of Magnesia) 30 ml PO DAILY PRN PRN Reason: Constipation Metformin HCl (Glucophage) 1,000 mg PO BID [facility] Last Admin: 06/30/17 11:00 Dose: 1,000 mg Pantoprazole Sodium (Protonix Ec Tab) 40 mg PO DAILY [facility] Pneumococcal Polyvalent Vaccine (Pneumovax 23 Vaccine) 0.5 ml IM .ONCE ONE Stop: 07/01/17 10:01 Sitagliptin Phosphate (Januvia) 50 mg PO DAILY [facility] Last Admin: 06/30/17 10:42 Dose: 50 mg - Labs Labs: 06/29/17 12:22 06/29/17 12:22 PT 11.9 SECONDS (9.7-12.2) 06/29/17 12:22 INR 1.1 06/29/17 12:22 APTT 31 SECONDS (21-34) 06/29/17 12:22 - Constitutional Appears: Well, No Acute Distress - Extremities Exam Additional comments: LLE: +ROM toes, sensation intact, toes warm, good cap refill Assessment and Plan (1) Displaced trimalleolar fracture of left ankle Assessment & Plan: Will need ORIF when swelling improved and medically optimized elevation VTE proph PT/OT OOB ice elevation, hitch foot of bed NWB keep splint intact d/w Dr. Mcginnis, agrees with above Status: Acute (2) Dislocation of ankle, left, closed Status: Acute
--- NOTE | 2017-06-30 12:38 | CP.PCM.CON ---
History of Present Illness - History of Present Illness History of Present Illness: Molina Archer DO PGY1 - Cardiology Consult Note for Dr. Cook Consultation for syncope HPI: 71 yo F with PMH of HTN and DM presented to ER by ambulance after she was found at her care home, screaming in pain, on the bathroom floor, with a disfigured and swollen ankle. Per the patient, she went to bed the night before , and then "woke up in bed" with a painful and swollen ankle. Patient does not recall any fall or blackout, trauma, or anything else that preceded/caused the injury/pain. Patient denies any chest pain, syncopal episode, tongue biting, urinary/bowel incontinence, CARDONA, palpitations, dyspnea; neither now, nor associated with the onset of the pain at home. She denies any history of syncopal episodes, palpitations, heart disease, seizures. Of note, patient [place] [facility] [place] and she currently takes Humilin, as well as Metformin and Januvia. Patient was not hypoglycemic when she was found on the bathroom floor. PMH: HTN, DM Meds: see MAR PSH: None FHx: None Soc: 10/01ppd smoker x50 years; prior h/o EtOH abuse; denies illicits All: Contrast, shellfish ROS: As in HPI Past Patient History - Infectious Disease Hx of Infectious Diseases: None - Past Medical History & Family History Past Medical History?: Yes - Past Social History Smoking Status: Former Smoker - CARDIAC Hx Hypertension: Yes - NEUROLOGICAL Hx Syncope: Yes - ENDOCRINE/METABOLIC Hx Diabetes Mellitus Type 2: Yes - MUSCULOSKELETAL/RHEUMATOLOGICAL Hx Falls: Yes - PSYCHIATRIC Hx Substance Use: No - SURGICAL HISTORY Hx Surgeries: No - ANESTHESIA Hx Anesthesia: No Meds Allergies/Adverse Reactions: Allergies Allergy/AdvReac Type Severity Reaction Status Date / Time Iodinated Contrast- Oral and Allergy Intermediate Verified 06/29/17 11:17 IV Dye shellfish derived Allergy Intermediate Verified 06/29/17 11:17 - Medications Medications: Current Medications Acetaminophen (Tylenol 325mg Tab) 650 mg PO Q4 PRN PRN Reason: Fever >100.4 F Last Admin: 06/29/17 22:54 Dose: 650 mg Acetaminophen (Tylenol 325mg Tab) 650 mg PO Q4 PRN PRN Reason: Pain, Mild (1-3) Last Admin: 06/29/17 19:12 Dose: 650 mg Amlodipine Besylate (Norvasc) 2.5 mg PO DAILY [facility] Last Admin: 06/30/17 10:42 Dose: 2.5 mg Glycerin (Glycerin Adult Suppository) 1 sup RC DAILY PRN PRN Reason: Constipation Home Med (Glucagon Hcl) 1 mg IM PRN PRN PRN Reason: Hypoglycemia Hydrochlorothiazide (Microzide) 12.5 mg PO DAILY [facility] Last Admin: 06/30/17 10:42 Dose: 12.5 mg Hydromorphone HCl (Dilaudid) 1 mg IVP Q4H PRN PRN Reason: Pain, severe (8-10) Last Admin: 06/30/17 08:23 Dose: 1 mg Insulin Aspart (Novolog Mix 70/30 (70/30 Units/Ml)) 15 units SC BID [facility] Last Admin: 06/30/17 10:53 Dose: 15 units Insulin Aspart (Novolog) 0 unit SC ACHS [facility] PRN Reason: Protocol Last Admin: 06/30/17 07:47 Dose: Not Given Losartan Potassium (Cozaar) 25 mg PO DAILY [facility] Last Admin: 06/30/17 10:43 Dose: 25 mg Magnesium Hydroxide (Milk Of Magnesia) 30 ml PO DAILY PRN PRN Reason: Constipation Metformin HCl (Glucophage) 1,000 mg PO BID [facility] Last Admin: 06/30/17 11:00 Dose: 1,000 mg Oxycodone/Acetaminophen (Percocet 5/325 Mg Tab) 1 tab PO Q4H PRN PRN Reason: Pain, Mild (1-3) Stop: 07/03/17 12:02 Pantoprazole Sodium (Protonix Ec Tab) 40 mg PO DAILY [facility] Pneumococcal Polyvalent Vaccine (Pneumovax 23 Vaccine) 0.5 ml IM .ONCE ONE Stop: 07/01/17 10:01 Sitagliptin Phosphate (Januvia) 50 mg PO DAILY [facility] Last Admin: 06/30/17 10:42 Dose: 50 mg Physical Exam - Constitutional Appears: Non-toxic, No Acute Distress - Head Exam Head Exam: ATRAUMATIC, NORMOCEPHALIC - Eye Exam Eye Exam: EOMI, Normal appearance - ENT Exam ENT Exam: Mucous Membranes Moist - Neck Exam Neck exam: Positive for: Full Rom, Normal Inspection - Respiratory Exam Respiratory Exam: Clear to Auscultation Bilateral. absent: Rales, Rhonchi, Wheezes - Cardiovascular Exam Cardiovascular Exam: RRR, +S1, +S2 - GI/Abdominal Exam GI & Abdominal Exam: Soft. absent: Tenderness - Extremities Exam Extremities exam: Negative for: calf tenderness, pedal edema - Neurological Exam Neurological exam: Alert, CN II-XII Intact, Oriented x3, Reflexes Normal - Psychiatric Exam Psychiatric exam: Normal Affect, Normal Mood - Skin Skin Exam: Dry, Intact Results - Vital Signs Recent Vital Signs: Last Vital Signs Temp 98.6 F 06/30/17 07:00 Pulse 71 06/30/17 07:00 Resp 18 06/30/17 07:00 BP 152/65 H 06/30/17 07:00 Pulse Ox 97 06/30/17 07:00 - Labs Result Diagrams: 06/29/17 12:22 06/29/17 12:22 Labs: Laboratory Results - last 24 hr 06/29/17 06/29/17 06/29/17 12:22 12:22 12:22 WBC 12.6 H RBC 3.91 Hgb 12.2 Hct 35.8 MCV 91.7 MCH 31.2 H MCHC 34.0 RDW 13.6 Plt Count 309 MPV 9.2 Neut % (Auto) 79.8 H Lymph % (Auto) 13.8 L [place] % (Auto) 5.0 Eos % (Auto) 0.5 Baso % (Auto) 0.9 Neut # 10.0 H Lymph # 1.7 [place] # 0.6 Eos # 0.1 Baso # 0.1 PT 11.9 INR 1.1 APTT 31 Sodium 138 Potassium 4.4 Chloride 101 Carbon Dioxide 25 Anion Gap 17 BUN 8 Creatinine 0.7 Est GFR ( Amer) > 60 Est GFR (Non-Af Amer) > 60 POC Glucose (mg/dL) Random Glucose 316 H Calcium 9.1 Total Bilirubin 0.5 AST 25 ALT 24 Alkaline Phosphatase 104 Total Creatine Kinase CK-MB (Mass) Troponin I, Quant Total Protein 6.7 Albumin 3.6 Globulin 3.1 Albumin/Globulin Ratio 1.2 Urine Color Urine Clarity Urine pH Ur Specific [place] Urine Protein Urine Glucose (UA) Urine Ketones Urine Blood Urine Nitrate Urine Bilirubin Urine Urobilinogen Ur Leukocyte Esterase Urine WBC (Auto) Urine RBC (Auto) Ur Squamous Epith Cells Blood Type Antibody Screen 06/29/17 06/29/17 06/29/17 12:22 17:41 20:00 WBC RBC Hgb Hct MCV MCH MCHC RDW Plt Count MPV Neut % (Auto) Lymph % (Auto) [place] % (Auto) Eos % (Auto) Baso % (Auto) Neut # Lymph # [place] # Eos # Baso # PT INR APTT Sodium Potassium Chloride Carbon Dioxide Anion Gap BUN Creatinine Est GFR ( Amer) Est GFR (Non-Af Amer) POC Glucose (mg/dL) Random Glucose Calcium Total Bilirubin AST ALT Alkaline Phosphatase Total Creatine Kinase 129 CK-MB (Mass) 1.01 Troponin I, Quant < 0.0120 Total Protein Albumin Globulin Albumin/Globulin Ratio Urine Color Yellow Urine Clarity Clear Urine pH 5.0 Ur Specific [place] 1.009 Urine Protein Negative Urine Glucose (UA) 2+ H Urine Ketones Negative Urine Blood Negative Urine Nitrate Negative Urine Bilirubin Negative Urine Urobilinogen Normal Ur Leukocyte Esterase Trace Urine WBC (Auto) 13 H Urine RBC (Auto) < 1 Ur Squamous Epith Cells 2 Blood Type O POSITIVE Antibody Screen Negative 06/29/17 06/30/17 06/30/17 22:37 02:26 06:38 WBC RBC Hgb Hct MCV MCH MCHC RDW Plt Count MPV Neut % (Auto) Lymph % (Auto) [place] % (Auto) Eos % (Auto) Baso % (Auto) Neut # Lymph # [place] # Eos # Baso # PT INR APTT Sodium Potassium Chloride Carbon Dioxide Anion Gap BUN Creatinine Est GFR ( Amer) Est GFR (Non-Af Amer) POC Glucose (mg/dL) 436 H* 146 H 127 H Random Glucose Calcium Total Bilirubin AST ALT Alkaline Phosphatase Total Creatine Kinase CK-MB (Mass) Troponin I, Quant Total Protein Albumin Globulin Albumin/Globulin Ratio Urine Color Urine Clarity Urine pH Ur Specific [place] Urine Protein Urine Glucose (UA) Urine Ketones Urine Blood Urine Nitrate Urine Bilirubin Urine Urobilinogen Ur Leukocyte Esterase Urine WBC (Auto) Urine RBC (Auto) Ur Squamous Epith Cells Blood Type Antibody Screen 06/30/17 06/30/17 11:46 12:02 WBC RBC Hgb Hct MCV MCH MCHC RDW Plt Count MPV Neut % (Auto) Lymph % (Auto) [place] % (Auto) Eos % (Auto) Baso % (Auto) Neut # Lymph # [place] # Eos # Baso # PT INR APTT Sodium Potassium Chloride Carbon Dioxide Anion Gap BUN Creatinine Est GFR ( Amer) Est GFR (Non-Af Amer) POC Glucose (mg/dL) > 500 H* Random Glucose Calcium Total Bilirubin AST ALT Alkaline Phosphatase Total Creatine Kinase 176 H CK-MB (Mass) 1.01 Troponin I, Quant < 0.0120 Total Protein Albumin Globulin Albumin/Globulin Ratio Urine Color Urine Clarity Urine pH Ur Specific [place] Urine Protein Urine Glucose (UA) Urine Ketones Urine Blood Urine Nitrate Urine Bilirubin Urine Urobilinogen Ur Leukocyte Esterase Urine WBC (Auto) Urine RBC (Auto) Ur Squamous Epith Cells Blood Type Antibody Screen Assessment & Plan - Assessment and Plan (Free Text) Assessment: 71 yo F with PMH of HTN and DM presents with fractured ankle, unknown etiology, questionable syncopal episode Plan: Syncope - Patient does not recall specifics of her injury, and appears to be confabulating the circumstances surrounding the morning prior to admission - No known cardiac or neurologic history; no prior syncopal episodes - Per care home staff, patient was independant and physically active prior to presentation, with normal mental status - EKG on admission shows no arrhythmia, no signs of acute ischemia - Echo ordered to r/o structural or valvular abnormalities - Patient may require nuclear stress testing to r/o ischemia, considering risk factors (DM, HTN, tobacco, alcohol) and atypical presentation - If cardiac workup negative, patient may require neurologic workup to r/o seizure or CVA HTN - Patient is moderately hypertensive, on home medications, but is constantly complaining of severe pain from her left foot - Pain control - Continue to monitor BP and titrate medications as needed DM - Patient is currently on insulin as well as oral hypoglycemics - Blood glucose extremely labile - Consider increasing/changing insulin regimen to include long-acting insulin, in place of oral medications - Maintain euglycemia Ankle fracture - s/p closed reduction - Ortho following - Precludes exercise stress test Patient discussed and reviewed with attending; disposition pending results of imaging studies
[2017-06-30 12:41] LABS: THYROID STIMULATING HORMONE 3.96 mIU/L (0.46-4.68)
--- NOTE | 2017-06-30 15:14 | CT ---
CT left ankle History: Fracture dislocation. Comparison: None available. Technique: Multiple contiguous axial images were performed through the left ankle without the use of intravenous contrast. Subsequently, sagittal and coronal reformatted images were obtained. Findings: Comminuted complete horizontally oriented fracture deformity through the medial malleolus of the distal tibia. Disruption of the medial ankle mortise. Multiple comminuted fracture fragments at that level. Prominent comminuted transverse oblique fracture through the distal fibula with multiple comminuted fracture fragments at the fracture site. Disruption of the lateral ankle mortise at that level. Vertically oriented transverse oblique fracture deformity through the posterior malleolus of the distal tibia with intra-articular extension and posterior comminution of the fracture fragments. Multiple comminuted fracture fragments at the level of the tibiofibular syndesmosis with likely disruption of the syndesmosis. Visualized calcaneus appears grossly preserved with some sclerosis at the superior and posterior aspect of the calcaneus. No evidence of acute displaced fracture. This may be better evaluated with MRI if clinically indicated. Suggestion of accessory ossicles with productive change at the level of the cuboid bone laterally. Small ossific density at the volar aspect of the navicular bone suggestive for accessory ossicle. Prominent medial and lateral malleolar soft tissue swelling. Impression: 1. Comminuted complete horizontally oriented fracture deformity through the medial malleolus of the distal tibia. Disruption of the medial ankle mortise. Multiple comminuted fracture fragments at that level. 2. Prominent comminuted transverse oblique fracture through the distal fibula with multiple comminuted fracture fragments at the fracture site. Disruption of the lateral ankle mortise at that level. 3. Vertically oriented transverse oblique fracture deformity through the posterior malleolus of the distal tibia with intra-articular extension and posterior comminution of the fracture fragments. 4. Multiple comminuted fracture fragments at the level of the tibiofibular syndesmosis with likely disruption of the syndesmosis. 5. Visualized calcaneus appears grossly preserved with some sclerosis at the superior and posterior aspect of the calcaneus. No evidence of acute displaced fracture. This may be better evaluated with MRI if clinically indicated. 6. Suggestion of accessory ossicles with productive change at the level of the cuboid bone laterally. 7. Small ossific density at the volar aspect of the navicular bone suggestive for accessory ossicle. 8. Prominent medial and lateral malleolar soft tissue swelling.
[2017-06-30] MEDS ORDERED: Glucagon Recombinant 1 mg Inj SC PRN (15:30)
[2017-06-30] MEDS: Oxycodone/Acetaminophen 5/325 mg Tab PO PRN ×2 (18:01→22:25)
--- NOTE | 2017-06-30 18:33 | CP.PCM.PN ---
Subjective - Date & Time of Evaluation Date of Evaluation: 06/30/17 Time of Evaluation: 13:40 - Subjective Subjective: clinically same Objective - Vital Signs/Intake and Output Vital Signs (last 24 hours): Temp Pulse Resp BP Pulse Ox 98.1 F 80 20 119/82 98 06/30/17 15:11 06/30/17 15:11 06/30/17 15:11 06/30/17 15:11 06/30/17 15:11 - Medications Medications: Current Medications Acetaminophen (Tylenol 325mg Tab) 650 mg PO Q4 PRN PRN Reason: Fever >100.4 F Last Admin: 06/30/17 14:07 Dose: 650 mg Acetaminophen (Tylenol 325mg Tab) 650 mg PO Q4 PRN PRN Reason: Pain, Mild (1-3) Last Admin: 06/29/17 19:12 Dose: 650 mg Amlodipine Besylate (Norvasc) 2.5 mg PO DAILY [facility] Last Admin: 06/30/17 10:42 Dose: 2.5 mg Glucagon (Glucagen Diagnostic Kit) 1 mg SC ONCE PRN PRN Reason: HYPOGLYCEMIA Glycerin (Glycerin Adult Suppository) 1 sup RC DAILY PRN PRN Reason: Constipation Hydrochlorothiazide (Microzide) 12.5 mg PO DAILY [facility] Last Admin: 06/30/17 10:42 Dose: 12.5 mg Hydromorphone HCl (Dilaudid) 1 mg IVP Q4H PRN PRN Reason: Pain, severe (8-10) Last Admin: 06/30/17 08:23 Dose: 1 mg Insulin Aspart (Novolog Mix 70/30 (70/30 Units/Ml)) 15 units SC BID [facility] Last Admin: 06/30/17 17:56 Dose: 15 units Insulin Aspart (Novolog) 0 unit SC ACHS [facility] PRN Reason: Protocol Last Admin: 06/30/17 17:30 Dose: 2 unit Losartan Potassium (Cozaar) 25 mg PO DAILY [facility] Last Admin: 06/30/17 10:43 Dose: 25 mg Magnesium Hydroxide (Milk Of Magnesia) 30 ml PO DAILY PRN PRN Reason: Constipation Metformin HCl (Glucophage) 1,000 mg PO BID [facility] Last Admin: 06/30/17 17:56 Dose: 1,000 mg Oxycodone/Acetaminophen (Percocet 5/325 Mg Tab) 1 tab PO Q4H PRN PRN Reason: Pain, Moderate 4-7 Stop: 07/03/17 12:02 Last Admin: 06/30/17 18:01 Dose: 1 tab Pantoprazole Sodium (Protonix Ec Tab) 40 mg PO DAILY [facility] Last Admin: 06/30/17 10:53 Dose: 40 mg Pneumococcal Polyvalent Vaccine (Pneumovax 23 Vaccine) 0.5 ml IM .ONCE ONE Stop: 07/01/17 10:01 Sitagliptin Phosphate (Januvia) 50 mg PO DAILY [facility] Last Admin: 06/30/17 10:42 Dose: 50 mg - Labs Labs: 06/29/17 12:22 06/29/17 12:22 PT 11.9 SECONDS (9.7-12.2) 06/29/17 12:22 INR 1.1 06/29/17 12:22 APTT 31 SECONDS (21-34) 06/29/17 12:22 - Constitutional Appears: Well - Head Exam Head Exam: ATRAUMATIC, NORMAL INSPECTION, NORMOCEPHALIC - Eye Exam Eye Exam: EOMI, Normal appearance, PERRL Pupil Exam: NORMAL ACCOMODATION, PERRL - ENT Exam ENT Exam: Mucous Membranes Moist, Normal Exam - Neck Exam Neck Exam: Full ROM, Normal Inspection. absent: Lymphadenopathy - Respiratory Exam Respiratory Exam: Decreased Breath Sounds - Cardiovascular Exam Cardiovascular Exam: REGULAR RHYTHM, +S1, +S2 - GI/Abdominal Exam GI & Abdominal Exam: Soft, Diminished Bowel Sounds - Rectal Exam Rectal Exam: Deferred
--- NOTE | 2017-06-30 21:20 | CP.PCM.CON ---
History of Present Illness - History of Present Illness History of Present Illness: Podiatry Consult Note- Dr. Malik 71 year old female seen concerning left ankle fracture. Per the patient, she went to bed the night before, and then "woke up in bed" with a painful and swollen ankle, though alf staff found her screaming in pain, on the bathroom floor, with a disfigured and swollen ankle. Patient does not recall any fall or blackout nor the traumatic event or mechanism. Left ankle closed reduced and splinted in ED prior to this interview. Patient denies any chest pain, prior syncopal episodes, seizures, chest pain, nor shortness of breath. Pts ambulation level prior to injury was with assistance of cane. PMH: HTN, DM PSH: None FHx: None Soc: 1/4ppd smoker x50 years; prior h/o EtOH abuse; denies illicit drug use. All: IV Contrast, shellfish Past Patient History - Infectious Disease Hx of Infectious Diseases: None - Past Medical History & Family History Past Medical History?: Yes - Past Social History Smoking Status: Former Smoker - CARDIAC Hx Hypertension: Yes - NEUROLOGICAL Hx Syncope: Yes - ENDOCRINE/METABOLIC Hx Diabetes Mellitus Type 2: Yes - MUSCULOSKELETAL/RHEUMATOLOGICAL Hx Falls: Yes - PSYCHIATRIC Hx Substance Use: No - SURGICAL HISTORY Hx Surgeries: No - ANESTHESIA Hx Anesthesia: No Meds Allergies/Adverse Reactions: Allergies Allergy/AdvReac Type Severity Reaction Status Date / Time Iodinated Contrast- Oral and Allergy Intermediate Verified 06/29/17 11:17 IV Dye shellfish derived Allergy Intermediate Verified 06/29/17 11:17 - Medications Medications: Current Medications Acetaminophen (Tylenol 325mg Tab) 650 mg PO Q4 PRN PRN Reason: Fever >100.4 F Last Admin: 06/30/17 14:07 Dose: 650 mg Acetaminophen (Tylenol 325mg Tab) 650 mg PO Q4 PRN PRN Reason: Pain, Mild (1-3) Last Admin: 06/29/17 19:12 Dose: 650 mg Amlodipine Besylate (Norvasc) 2.5 mg PO DAILY [facility] Last Admin: 06/30/17 10:42 Dose: 2.5 mg Glucagon (Glucagen Diagnostic Kit) 1 mg SC ONCE PRN PRN Reason: HYPOGLYCEMIA Glycerin (Glycerin Adult Suppository) 1 sup RC DAILY PRN PRN Reason: Constipation Hydrochlorothiazide (Microzide) 12.5 mg PO DAILY [facility] Last Admin: 06/30/17 10:42 Dose: 12.5 mg Hydromorphone HCl (Dilaudid) 1 mg IVP Q4H PRN PRN Reason: Pain, severe (8-10) Last Admin: 06/30/17 08:23 Dose: 1 mg Insulin Aspart (Novolog Mix 70/30 (70/30 Units/Ml)) 15 units SC BID [facility] Last Admin: 06/30/17 17:56 Dose: 15 units Insulin Aspart (Novolog) 0 unit SC ACHS [facility] PRN Reason: Protocol Last Admin: 06/30/17 17:30 Dose: 2 unit Losartan Potassium (Cozaar) 25 mg PO DAILY [facility] Last Admin: 06/30/17 10:43 Dose: 25 mg Magnesium Hydroxide (Milk Of Magnesia) 30 ml PO DAILY PRN PRN Reason: Constipation Metformin HCl (Glucophage) 1,000 mg PO BID [facility] Last Admin: 06/30/17 17:56 Dose: 1,000 mg Oxycodone/Acetaminophen (Percocet 5/325 Mg Tab) 1 tab PO Q4H PRN PRN Reason: Pain, Moderate 4-7 Stop: 07/03/17 12:02 Last Admin: 06/30/17 18:01 Dose: 1 tab Pantoprazole Sodium (Protonix Ec Tab) 40 mg PO DAILY [facility] Last Admin: 06/30/17 10:53 Dose: 40 mg Pneumococcal Polyvalent Vaccine (Pneumovax 23 Vaccine) 0.5 ml IM .ONCE ONE Stop: 07/01/17 10:01 Sitagliptin Phosphate (Januvia) 50 mg PO DAILY [facility] Last Admin: 06/30/17 10:42 Dose: 50 mg Physical Exam - Constitutional Appears: Well, Non-toxic, No Acute Distress - Extremities Exam Additional comments: Left lower extrmeity focused. Largely deferred due to posterior splint left in- place. Pt able to move digits to verbal promting, [employer] of 5 digits less than 5 seconds. - Neurological Exam Neurological exam: Alert, Oriented x3 - Psychiatric Exam Psychiatric exam: Normal Affect, Normal Mood Results - Vital Signs Recent Vital Signs: Last Vital Signs Temp 98.1 F 06/30/17 15:11 Pulse 80 06/30/17 15:11 Resp 20 06/30/17 15:11 BP 119/82 06/30/17 15:11 Pulse Ox 98 06/30/17 15:11 - Labs Result Diagrams: 06/29/17 12:22 06/29/17 12:22 Labs: Laboratory Results - last 24 hr 06/29/17 06/29/17 06/30/17 20:00 22:37 02:26 POC Glucose (mg/dL) 436 H* 146 H Total Creatine Kinase 129 CK-MB (Mass) 1.01 Troponin I, Quant < 0.0120 NT-Pro-B Natriuret Pep Lipase TSH 3rd Generation 06/30/17 06/30/17 06/30/17 06:38 11:46 11:46 POC Glucose (mg/dL) 127 H Total Creatine Kinase 176 H CK-MB (Mass) 1.01 Troponin I, Quant < 0.0120 NT-Pro-B Natriuret Pep 1000 H Lipase < 10 L TSH 3rd Generation 3.96 06/30/17 06/30/17 12:02 16:27 POC Glucose (mg/dL) > 500 H* 182 H Total Creatine Kinase CK-MB (Mass) Troponin I, Quant NT-Pro-B Natriuret Pep Lipase TSH 3rd Generation Assessment & Plan - Assessment and Plan (Free Text) Assessment: 71 year old deibetic female with left ankle trimalleolar fracture. Plan: Pt seen and evaluated. Chart, labs, and vitals reviewed. Minor leukocytosis= 12.6K, afebrile. Discussed pt in detail with attending, Dr. Malik, who endorsed the following plan. -Radiographs and CT scan reviewed; pre-and post-closed reduction: mal-aligned tri-malleolar fracture remains. -Surgical intervention indicated. Discusse dwith patient need for surgical correction and internal fixation. Addressed patient concerning regarding potential use of plates and screws for internal fixation. Discussed risk, benefits, post-operative management, and complication for surgical intervention. -Pt and daughter, who was contacted via cellphone, understand and wish to proceed with surgical intervention. - Pt to go to OR Tuesday 07/03 midday for left ankle ORIF. Medical clearance by appreciated. Cardiac clearance by Dr. Cook appreciated. Pt to remain non-weightbearing to left lower extremity. Analgesic control per primary team. Podiatry will continue to follow patient while inhouse. - Date & Time Date: 06/30/17 Time: 10:40
--- NOTE | 2017-07-01 07:00 | CP.PCM.PN ---
Subjective - Date & Time of Evaluation Date of Evaluation: 07/01/17 Time of Evaluation: 10:00 - Subjective Subjective: Pt seen at bedside. Clinically same. Pail well controlled. Resting confortable upon arrival. Objective - Vital Signs/Intake and Output Vital Signs (last 24 hours): Temp Pulse Resp BP Pulse Ox 98.2 F 77 20 162/70 H 97 07/01/17 00:00 07/01/17 00:00 07/01/17 00:00 07/01/17 00:00 07/01/17 00:00 Intake and Output: 06/30/17 07/01/17 18:59 06:59 Intake Total 720 Output Total 600 Balance 120 - Medications Medications: Current Medications Acetaminophen (Tylenol 325mg Tab) 650 mg PO Q4 PRN PRN Reason: Fever >100.4 F Last Admin: 06/30/17 14:07 Dose: 650 mg Acetaminophen (Tylenol 325mg Tab) 650 mg PO Q4 PRN PRN Reason: Pain, Mild (1-3) Last Admin: 07/01/17 00:02 Dose: 650 mg Amlodipine Besylate (Norvasc) 2.5 mg PO DAILY [facility] Last Admin: 06/30/17 10:42 Dose: 2.5 mg Glucagon (Glucagen Diagnostic Kit) 1 mg SC ONCE PRN PRN Reason: HYPOGLYCEMIA Glycerin (Glycerin Adult Suppository) 1 sup RC DAILY PRN PRN Reason: Constipation Hydrochlorothiazide (Microzide) 12.5 mg PO DAILY [facility] Last Admin: 06/30/17 10:42 Dose: 12.5 mg Hydromorphone HCl (Dilaudid) 1 mg IVP Q4H PRN PRN Reason: Pain, severe (8-10) Last Admin: 06/30/17 08:23 Dose: 1 mg Insulin Aspart (Novolog Mix 70/30 (70/30 Units/Ml)) 15 units SC BID [facility] Last Admin: 06/30/17 17:56 Dose: 15 units Insulin Aspart (Novolog) 0 unit SC ACHS [facility] PRN Reason: Protocol Last Admin: 06/30/17 22:25 Dose: Not Given Losartan Potassium (Cozaar) 25 mg PO DAILY [facility] Last Admin: 06/30/17 10:43 Dose: 25 mg Magnesium Hydroxide (Milk Of Magnesia) 30 ml PO DAILY PRN PRN Reason: Constipation Metformin HCl (Glucophage) 1,000 mg PO BID [facility] Last Admin: 06/30/17 17:56 Dose: 1,000 mg Oxycodone/Acetaminophen (Percocet 5/325 Mg Tab) 1 tab PO Q4H PRN PRN Reason: Pain, Moderate 4-7 Stop: 07/03/17 12:02 Last Admin: 06/30/17 22:25 Dose: 1 tab Pantoprazole Sodium (Protonix Ec Tab) 40 mg PO DAILY [facility] Last Admin: 06/30/17 10:53 Dose: 40 mg Pneumococcal Polyvalent Vaccine (Pneumovax 23 Vaccine) 0.5 ml IM .ONCE ONE Stop: 07/01/17 10:01 Sitagliptin Phosphate (Januvia) 50 mg PO DAILY [facility] Last Admin: 06/30/17 10:42 Dose: 50 mg - Labs Labs: 06/29/17 12:22 06/29/17 12:22 PT 11.9 SECONDS (9.7-12.2) 06/29/17 12:22 INR 1.1 06/29/17 12:22 APTT 31 SECONDS (21-34) 06/29/17 12:22 Assessment and Plan - Assessment and Plan (Free Text) Assessment: 71 year odl female with left ankle trimalleolar fracture. Plan: Wellness check performed. Discussed with pt tentative OR date and time.
[2017-07-01 07:54] LABS: CHOLESTEROL 107 mg/dL (0-199)
[2017-07-01] MEDS: (Novolog) Insulin Aspart, Recombinant 100 u/ml 10 ml vial SC SCH ×4 (08:00→22:00)
[2017-07-01] MEDS: Oxycodone/Acetaminophen 5/325 mg Tab PO PRN ×2 (09:45→17:47)
[2017-07-01] MEDS: (Novolog Mix 70/30) Insulin Aspart/Insulin Aspar 100 units/ml SC SCH ×2 (09:48→17:46)
[2017-07-01] MEDS: Pantoprazole 40 mg EC Tab PO SCH (09:55)
[2017-07-01] MEDS ORDERED: Pneumococcal 23-Valent Vaccine IM ONE (10:00)
--- NOTE | 2017-07-01 11:51 | CARD ---
APPROVED REPORT EKG Measurement Heart [id number] PA [id number] <Conclusion> Normal sinus rhythm Nonspecific T wave abnormality Abnormal ECG
--- NOTE | 2017-07-01 12:28 | CARD ---
APPROVED REPORT EXAM: Two-dimensional and M-mode echocardiogram with Doppler and color Doppler. Other Information Quality : GoodRhythm : NSR INDICATION Syncope RISK FACTORS Hypertension Diabetes 2D DIMENSIONS IVSd0.9 (0.7-1.1cm)LVDd4.7 (3.9-5.9cm) PWd1.0 (0.7-1.1cm)LVDs3.0 (2.5-4.0cm) FS (%) 35.8 %LVEF (%)65.3 (>50%) M-Mode DIMENSIONS Left Atrium (MM)3.02 (2.5-4.0cm)Aortic Root3.25 (2.2-3.7cm) Aortic Cusp Exc.2.08 (1.5-2.0cm) Mitral Valve MV E Velocity7.1cm/sE/A ratio0.0 TDI E/Lateral E'0.0E/Medial E'0.0 Tricuspid Valve TR Peak [id number]/sTR Peak [id number] <Conclusion> poor window. normal size la,lv & ra rv. normal lv wall otion,thickness & systolic function with lvef of 65-70%. lv diastolic dysfunction grade one. grossly normal looking aortic,mitral,tv & pv. mild pi & tr with normal pulmonary systolic pressures of 14 mm of hg. normal size aortic root. no pericardial effusion.
[2017-07-01] MEDS: HYDROmorphone 0.5 mg/0.5 ml ISec IVP PRN ×2 (12:49→21:15)
[2017-07-01 14:06] LABS: BASO % 0.4 % (0.0-2.0); EOS # 0.1 K/uL (0.0-0.7); EOS % 1.3 % (0.0-4.0); HEMATOCRIT 39.4 % (34.0-47.0); LYMPH # 1.8 K/uL (1.0-4.3); LYMPH % 15.8 % (20.0-40.0); MEAN CELL VOLUME 91.3 fL (81.0-99.0); MEAN CORPUSCULAR HEMOGLOBIN 31.1 pg (27.0-31.0); MEAN PLATELET VOLUME 9.3 fL (7.2-11.7); MONO # 0.6 K/uL (0.0-0.8); MONO % 5.2 % (0.0-10.0); NRBC % 0.1 % (0.0-2.0); RED CELL DISTRIBUTION WIDTH 13.4 % (11.5-14.5); WHITE BLOOD COUNT 11.2 K/uL (4.8-10.8)
[2017-07-01 14:13] LABS: CHLORIDE 100 mmol/L (98-107)
[2017-07-01 14:14] LABS: POTASSIUM 3.3 mmol/L (3.6-5.2); SODIUM 138 mmol/L (132-148)
[2017-07-01 14:16] LABS: GFR AFRICAN-AMERICAN > 60
[2017-07-01 14:17] LABS: ALB/GLOB RATIO 0.9 (1.0-2.1); ALKALINE PHOSPHATASE 100 U/L (38-126); ALT/SGPT 15 U/L (9-52); AST/SGOT 22 U/L (14-36); BILIRUBIN,TOTAL 0.6 mg/dL (0.2-1.3); BLOOD UREA NITROGEN 7 mg/dL (7-17); CALCIUM 8.9 mg/dl (8.6-10.4); CARBON DIOXIDE 22 mmol/L (22-30); GLUCOSE,RANDOM 304 mg/dL (65-105); TOTAL PROTEIN 7.9 g/dL (6.3-8.3)
[2017-07-01] MEDS ORDERED: Potassium Chloride 20 mEq/15 ml LIQ UD PO ONE (14:43)
--- NOTE | 2017-07-01 14:55 | CP.PCM.PN ---
Subjective - Date & Time of Evaluation Date of Evaluation: 07/01/17 Time of Evaluation: 14:53 - Subjective Subjective: D/w podiatry resident Dr. Araujo, states at request of Dr. Mcginnis, Dr. Malik will take over care of this patient. Scheduled for ORIF 07/03. Will sign off. Objective - Vital Signs/Intake and Output Vital Signs (last 24 hours): Temp Pulse Resp BP Pulse Ox 97.7 F 70 20 175/73 H 98 07/01/17 07:05 07/01/17 08:00 07/01/17 07:05 07/01/17 07:05 07/01/17 07:05 Intake and Output: 07/01/17 07/01/17 06:59 18:59 Intake Total 720 Output Total 600 Balance 120 - Medications Medications: Current Medications Acetaminophen (Tylenol 325mg Tab) 650 mg PO Q4 PRN PRN Reason: Fever >100.4 F Last Admin: 06/30/17 14:07 Dose: 650 mg Acetaminophen (Tylenol 325mg Tab) 650 mg PO Q4 PRN PRN Reason: Pain, Mild (1-3) Last Admin: 07/01/17 07:03 Dose: 650 mg Amlodipine Besylate (Norvasc) 10 mg PO DAILY [facility] Glucagon (Glucagen Diagnostic Kit) 1 mg SC ONCE PRN PRN Reason: HYPOGLYCEMIA Glycerin (Glycerin Adult Suppository) 1 sup RC DAILY PRN PRN Reason: Constipation Hydrochlorothiazide (Microzide) 12.5 mg PO DAILY [facility] Last Admin: 07/01/17 09:55 Dose: 12.5 mg Hydromorphone HCl (Dilaudid) 1 mg IVP Q4H PRN PRN Reason: Pain, severe (8-10) Last Admin: 07/01/17 12:49 Dose: 1 mg Insulin Aspart (Novolog Mix 70/30 (70/30 Units/Ml)) 15 units SC BID [facility] Last Admin: 07/01/17 09:48 Dose: 15 units Insulin Aspart (Novolog) 0 unit SC ACHS [facility] PRN Reason: Protocol Last Admin: 07/01/17 11:45 Dose: 4 unit Losartan Potassium (Cozaar) 25 mg PO DAILY [facility] Last Admin: 07/01/17 09:55 Dose: 25 mg Magnesium Hydroxide (Milk Of Magnesia) 30 ml PO DAILY PRN PRN Reason: Constipation Metformin HCl (Glucophage) 1,000 mg PO BID [facility] Last Admin: 07/01/17 09:55 Dose: 1,000 mg Oxycodone/Acetaminophen (Percocet 5/325 Mg Tab) 1 tab PO Q4H PRN PRN Reason: Pain, Moderate 4-7 Stop: 07/03/17 12:02 Last Admin: 07/01/17 09:45 Dose: 1 tab Pantoprazole Sodium (Protonix Ec Tab) 40 mg PO DAILY [facility] Last Admin: 07/01/17 09:55 Dose: 40 mg Potassium Chloride (Potassium Chloride Oral Soln) 20 meq PO ONCE ONE Stop: 07/01/17 14:44 Sitagliptin Phosphate (Januvia) 50 mg PO DAILY [facility] Last Admin: 07/01/17 09:55 Dose: 50 mg - Labs Labs: 07/01/17 13:54 07/01/17 13:54 PT 11.9 SECONDS (9.7-12.2) 06/29/17 12:22 INR 1.1 06/29/17 12:22 APTT 31 SECONDS (21-34) 06/29/17 12:22 Assessment and Plan (1) Displaced trimalleolar fracture of left ankle Status: Acute (2) Dislocation of ankle, left, closed Status: Acute
--- NOTE | 2017-07-01 18:10 | CP.PCM.PN ---
Subjective - Date & Time of Evaluation Date of Evaluation: 07/01/17 Time of Evaluation: 11:45 - Subjective Subjective: Molina Archer DO PGY1 - Cardiology Progress Note for Dr. Cook Patient seen and examined at bedside. No events overnight. On superintendent [employer] , two episodes of tachycardia noted lasting 4-5 minutes each, to 130's bpm. Patient is currently only complaining of left ankle pain, and denies CP, SOB, palpitations, CARDONA, dizziness, confusion. Upon reinquiry, patient now admits that she woke up with pain and swelling in left foot, then hobbled to the bathroom, where she tripped on her cane and fell on the ground. This is somewhat different from her original story, in which she says she did not fall. Patient still denies any prior LOC, CP, CARDONA, palpitations, dizziness. Objective - Vital Signs/Intake and Output Vital Signs (last 24 hours): Temp Pulse Resp BP Pulse Ox 98.3 F 82 20 133/74 98 07/01/17 15:05 07/01/17 15:58 07/01/17 15:05 07/01/17 15:05 07/01/17 15:05 Intake and Output: 07/01/17 07/01/17 06:59 18:59 Intake Total 720 400 Output Total 600 Balance 120 400 - Medications Medications: Current Medications Acetaminophen (Tylenol 325mg Tab) 650 mg PO Q4 PRN PRN Reason: Fever >100.4 F Last Admin: 06/30/17 14:07 Dose: 650 mg Acetaminophen (Tylenol 325mg Tab) 650 mg PO Q4 PRN PRN Reason: Pain, Mild (1-3) Last Admin: 07/01/17 07:03 Dose: 650 mg Amlodipine Besylate (Norvasc) 10 mg PO DAILY [facility] Glucagon (Glucagen Diagnostic Kit) 1 mg SC ONCE PRN PRN Reason: HYPOGLYCEMIA Glycerin (Glycerin Adult Suppository) 1 sup RC DAILY PRN PRN Reason: Constipation Hydrochlorothiazide (Microzide) 12.5 mg PO DAILY [facility] Last Admin: 07/01/17 09:55 Dose: 12.5 mg Hydromorphone HCl (Dilaudid) 1 mg IVP Q4H PRN PRN Reason: Pain, severe (8-10) Last Admin: 07/01/17 12:49 Dose: 1 mg Insulin Aspart (Novolog Mix 70/30 (70/30 Units/Ml)) 15 units SC BID [facility] Last Admin: 07/01/17 17:46 Dose: 15 units Insulin Aspart (Novolog) 0 unit SC ACHS [facility] PRN Reason: Protocol Last Admin: 07/01/17 17:47 Dose: 2 unit Losartan Potassium (Cozaar) 25 mg PO DAILY [facility] Last Admin: 07/01/17 09:55 Dose: 25 mg Magnesium Hydroxide (Milk Of Magnesia) 30 ml PO DAILY PRN PRN Reason: Constipation Metformin HCl (Glucophage) 1,000 mg PO BID [facility] Last Admin: 07/01/17 17:46 Dose: 1,000 mg Oxycodone/Acetaminophen (Percocet 5/325 Mg Tab) 1 tab PO Q4H PRN PRN Reason: Pain, Moderate 4-7 Stop: 07/03/17 12:02 Last Admin: 07/01/17 17:47 Dose: 1 tab Pantoprazole Sodium (Protonix Ec Tab) 40 mg PO DAILY [facility] Last Admin: 07/01/17 09:55 Dose: 40 mg Sitagliptin Phosphate (Januvia) 50 mg PO DAILY [facility] Last Admin: 07/01/17 09:55 Dose: 50 mg - Labs Labs: 07/01/17 13:54 07/01/17 13:54 PT 11.9 SECONDS (9.7-12.2) 06/29/17 12:22 INR 1.1 06/29/17 12:22 APTT 31 SECONDS (21-34) 06/29/17 12:22 - Constitutional Appears: Non-toxic, No Acute Distress - Head Exam Head Exam: ATRAUMATIC, NORMOCEPHALIC - Eye Exam Eye Exam: EOMI, Normal appearance - ENT Exam ENT Exam: Mucous Membranes Moist - Neck Exam Neck Exam: Full ROM, Normal Inspection - Respiratory Exam Respiratory Exam: Clear to Ausculation Bilateral. absent: Rales, Rhonchi, Wheezes - Cardiovascular Exam Cardiovascular Exam: RRR, +S1, +S2 - GI/Abdominal Exam GI & Abdominal Exam: Soft. absent: Tenderness - Extremities Exam Additional comments: No R calf tenderness or edema Unable to examine L lower leg due to immobilizing brace and exquisite tenderness with manipulation - Neurological Exam Neurological Exam: Alert, Awake, Oriented x3 - Psychiatric Exam Psychiatric exam: Normal Affect, Normal Mood - Skin Skin Exam: Dry, Intact Assessment and Plan - Assessment and Plan (Free Text) Assessment: 71 yo F with PMH of HTN and DM presents with fractured ankle, unknown etiology, questionable syncopal episode Plan: 1. Syncope - Patient does not recall specifics of her injury, and appears to be confabulating the circumstances surrounding the morning prior to admission - No known cardiac or neurologic history; no prior syncopal episodes - No confirmed, observed syncopal episode; only presumed based on history of fall and ankle fracture - Per [facility] staff, patient was independant and physically active prior to presentation, with normal mental status; walks with cane - EKG on admission shows no arrhythmia, no signs of acute ischemia - Two episodes of inappropriate tachycardia to 130s yesterday; sinus tachycardia - Ordered D-dimer and LE duplex to r/o DVT/PE - Ordered orthostatic vital signs - Patient was ambulatory, with no prior history of hypercoagulability, but DVT would explain sudden unexplained pain and swelling in lower extremity - Subsequent mechanical fall might explain ankle fracture - Echo complete; normal function, no significant valvular abnormalities; no wall motion abnormalities - Nuclear stress test tomorrow to r/o ischemia, considering risk factors (DM, HTN, tobacco, alcohol) and atypical presentation, and for preop cardiac risk stratification - If cardiac workup negative, patient may require neurologic workup to r/o seizure or CVA 2. Preoperative cardiovascular exam - Patient has no known cardiac history - Elderly AA female with long smoking history and prior history of alcohol abuse ; questionable syncopal episode - EKG normal - Ordered nuclear pharmacologic stress testing for risk stratification 3. HTN - Pain control improved, patient remains moderately hypertensive - Increase Norvasc to 10mg daily - Continue to monitor BP and titrate medications as needed 4. DM - Patient is currently on insulin as well as oral hypoglycemics - Blood glucose now more stable - Maintain euglycemia 5. Ankle fracture - s/p closed reduction - Ortho and podiatry following - Precludes exercise stress test - Scheduled for ORIF on Thursday, cardiac clearance requested Patient discussed and reviewed with attending; disposition pending results of imaging studies
--- NOTE | 2017-07-01 19:00 | CP.PCM.PN ---
Subjective - Date & Time of Evaluation Date of Evaluation: 07/01/17 Time of Evaluation: 10:00 - Subjective Subjective: PGY3 on medicine service: Pt seen and examined at bedside this morning. Pt complains of left ankle pain and knows about ORIF procedure on 07/03. No acute events overnight per RN. Per cardio, two episodes of tachycardia noted. Scheduled to have nuclear stress tomorrow. Objective - Vital Signs/Intake and Output Vital Signs (last 24 hours): Temp Pulse Resp BP Pulse Ox 98.3 F 82 20 133/74 98 07/01/17 15:05 07/01/17 15:58 07/01/17 15:05 07/01/17 15:05 07/01/17 15:05 Intake and Output: 07/01/17 07/01/17 06:59 18:59 Intake Total 720 400 Output Total 600 Balance 120 400 - Medications Medications: Current Medications Acetaminophen (Tylenol 325mg Tab) 650 mg PO Q4 PRN PRN Reason: Fever >100.4 F Last Admin: 06/30/17 14:07 Dose: 650 mg Acetaminophen (Tylenol 325mg Tab) 650 mg PO Q4 PRN PRN Reason: Pain, Mild (1-3) Last Admin: 07/01/17 07:03 Dose: 650 mg Amlodipine Besylate (Norvasc) 10 mg PO DAILY [facility] Glucagon (Glucagen Diagnostic Kit) 1 mg SC ONCE PRN PRN Reason: HYPOGLYCEMIA Glycerin (Glycerin Adult Suppository) 1 sup RC DAILY PRN PRN Reason: Constipation Hydrochlorothiazide (Microzide) 12.5 mg PO DAILY [facility] Last Admin: 07/01/17 09:55 Dose: 12.5 mg Hydromorphone HCl (Dilaudid) 1 mg IVP Q4H PRN PRN Reason: Pain, severe (8-10) Last Admin: 07/01/17 12:49 Dose: 1 mg Insulin Aspart (Novolog Mix 70/30 (70/30 Units/Ml)) 15 units SC BID [facility] Last Admin: 07/01/17 17:46 Dose: 15 units Insulin Aspart (Novolog) 0 unit SC ACHS [facility] PRN Reason: Protocol Last Admin: 07/01/17 17:47 Dose: 2 unit Losartan Potassium (Cozaar) 25 mg PO DAILY [facility] Last Admin: 07/01/17 09:55 Dose: 25 mg Magnesium Hydroxide (Milk Of Magnesia) 30 ml PO DAILY PRN PRN Reason: Constipation Metformin HCl (Glucophage) 1,000 mg PO BID [facility] Last Admin: 07/01/17 17:46 Dose: 1,000 mg Oxycodone/Acetaminophen (Percocet 5/325 Mg Tab) 1 tab PO Q4H PRN PRN Reason: Pain, Moderate 4-7 Stop: 07/03/17 12:02 Last Admin: 07/01/17 17:47 Dose: 1 tab Pantoprazole Sodium (Protonix Ec Tab) 40 mg PO DAILY [facility] Last Admin: 07/01/17 09:55 Dose: 40 mg Sitagliptin Phosphate (Januvia) 50 mg PO DAILY [facility] Last Admin: 07/01/17 09:55 Dose: 50 mg - Labs Labs: 07/01/17 13:54 07/01/17 13:54 PT 11.9 SECONDS (9.7-12.2) 06/29/17 12:22 INR 1.1 06/29/17 12:22 APTT 31 SECONDS (21-34) 06/29/17 12:22 - Constitutional Appears: Non-toxic, No Acute Distress, Chronically Ill - Head Exam Head Exam: NORMOCEPHALIC - Eye Exam Eye Exam: Normal appearance Pupil Exam: NORMAL ACCOMODATION - ENT Exam ENT Exam: Mucous Membranes Moist - Respiratory Exam Respiratory Exam: Clear to Ausculation Bilateral, NORMAL BREATHING PATTERN. absent: Wheezes - Cardiovascular Exam Cardiovascular Exam: REGULAR RHYTHM, +S1, +S2. absent: Gallop, Rubs - GI/Abdominal Exam GI & Abdominal Exam: Soft, Normal Bowel Sounds - Extremities Exam Extremities Exam: Tenderness (left calf dressing c/d/i, tender on manipulation) - Neurological Exam Neurological Exam: Alert, Awake, Oriented x3 - Psychiatric Exam Psychiatric exam: Normal Mood - Skin Skin Exam: Intact Assessment and Plan - Assessment and Plan (Free Text) Assessment: Left ankle fracture Podiatry Dr. Malik consulted, help appreciated. Ortho Dr. Pizano consulted, help appreciated. Xray shows left ankle trimalleolar fracture. S/P closed reduction and requires ORIF, scheduled on 07/03. Dilaudid 1mg IV q4 PRN. Needs cardiac clearance. ECHO showed preserve EF with grade one diastolic dysfunction. Cardio Dr. Joey consulted, help appreciated. Will have nuclear stress test tomorrow. HTN Continue Norvasc 10mg PO daily, HCTZ 12.5mg PO daily, Cozaar 25mg PO daily. DM Stop oral meds. RISS, accuchecks. Novolog 70/30 15U SC BID. Prophylactic measure Protonix, SCD. Management as per .
--- NOTE | 2017-07-01 20:01 | CP.PCM.PN ---
Subjective - Date & Time of Evaluation Date of Evaluation: 07/01/17 Time of Evaluation: 12:40 - Subjective Subjective: clinically same Objective - Vital Signs/Intake and Output Vital Signs (last 24 hours): Temp Pulse Resp BP Pulse Ox 98.3 F 82 20 133/74 98 07/01/17 15:05 07/01/17 15:58 07/01/17 15:05 07/01/17 15:05 07/01/17 15:05 Intake and Output: 07/01/17 07/02/17 18:59 06:59 Intake Total 400 Balance 400 - Medications Medications: Current Medications Acetaminophen (Tylenol 325mg Tab) 650 mg PO Q4 PRN PRN Reason: Fever >100.4 F Last Admin: 06/30/17 14:07 Dose: 650 mg Acetaminophen (Tylenol 325mg Tab) 650 mg PO Q4 PRN PRN Reason: Pain, Mild (1-3) Last Admin: 07/01/17 07:03 Dose: 650 mg Amlodipine Besylate (Norvasc) 10 mg PO DAILY [facility] Glucagon (Glucagen Diagnostic Kit) 1 mg SC ONCE PRN PRN Reason: HYPOGLYCEMIA Glycerin (Glycerin Adult Suppository) 1 sup RC DAILY PRN PRN Reason: Constipation Hydrochlorothiazide (Microzide) 12.5 mg PO DAILY [facility] Last Admin: 07/01/17 09:55 Dose: 12.5 mg Hydromorphone HCl (Dilaudid) 1 mg IVP Q4H PRN PRN Reason: Pain, severe (8-10) Last Admin: 07/01/17 12:49 Dose: 1 mg Insulin Aspart (Novolog) 0 unit SC ACHS [facility] PRN Reason: Protocol Last Admin: 07/01/17 17:47 Dose: 2 unit Insulin Aspart (Novolog Mix 70/30 (70/30 Units/Ml)) 17 units SC BID [facility] Losartan Potassium (Cozaar) 25 mg PO DAILY [facility] Last Admin: 07/01/17 09:55 Dose: 25 mg Magnesium Hydroxide (Milk Of Magnesia) 30 ml PO DAILY PRN PRN Reason: Constipation Metformin HCl (Glucophage) 1,000 mg PO BID [facility] Last Admin: 07/01/17 17:46 Dose: 1,000 mg Oxycodone/Acetaminophen (Percocet 5/325 Mg Tab) 1 tab PO Q4H PRN PRN Reason: Pain, Moderate 4-7 Stop: 07/03/17 12:02 Last Admin: 07/01/17 17:47 Dose: 1 tab Pantoprazole Sodium (Protonix Ec Tab) 40 mg PO DAILY [facility] Last Admin: 07/01/17 09:55 Dose: 40 mg Sitagliptin Phosphate (Januvia) 50 mg PO DAILY [facility] Last Admin: 07/01/17 09:55 Dose: 50 mg - Labs Labs: 07/01/17 13:54 07/01/17 13:54 PT 11.9 SECONDS (9.7-12.2) 06/29/17 12:22 INR 1.1 06/29/17 12:22 APTT 31 SECONDS (21-34) 06/29/17 12:22 - Constitutional Appears: Well - Head Exam Head Exam: ATRAUMATIC, NORMAL INSPECTION, NORMOCEPHALIC - Eye Exam Eye Exam: EOMI, Normal appearance, PERRL Pupil Exam: NORMAL ACCOMODATION, PERRL - ENT Exam ENT Exam: Mucous Membranes Moist, Normal Exam - Neck Exam Neck Exam: Full ROM, Normal Inspection. absent: Lymphadenopathy - Respiratory Exam Respiratory Exam: Decreased Breath Sounds - Cardiovascular Exam Cardiovascular Exam: REGULAR RHYTHM, +S1, +S2 - GI/Abdominal Exam GI & Abdominal Exam: Soft, Diminished Bowel Sounds - Rectal Exam Rectal Exam: Deferred
[2017-07-01] MEDS ORDERED: Dextrose 50% SYRINGE Inj (50 ml) ONE (21:45)
[2017-07-01] MEDS ORDERED: Dextrose 50% SYRINGE Inj (50 ml) IV STA (21:48)
[2017-07-02] MEDS: HYDROmorphone 0.5 mg/0.5 ml ISec IVP PRN ×2 (05:53→19:22)
[2017-07-02 06:29] LABS: BASO # 0.1 K/uL (0.0-0.2); BASO % 0.7 % (0.0-2.0); EOS # 0.2 K/uL (0.0-0.7); EOS % 2.2 % (0.0-4.0); HEMATOCRIT 38.4 % (34.0-47.0); LYMPH # 2.5 K/uL (1.0-4.3); LYMPH % 24.3 % (20.0-40.0); MEAN CORPUSCULAR HEMOGLOBIN 31.1 pg (27.0-31.0); MEAN CORPUSCULAR HGB CONC 33.8 g/dL (33.0-37.0); MEAN PLATELET VOLUME 9.5 fL (7.2-11.7); MONO # 0.6 K/uL (0.0-0.8); MONO % 5.8 % (0.0-10.0); NRBC % 0.1 % (0.0-2.0); RED CELL DISTRIBUTION WIDTH 13.7 % (11.5-14.5); WHITE BLOOD COUNT 10.4 K/uL (4.8-10.8)
[2017-07-02] MEDS: (Novolog) Insulin Aspart, Recombinant 100 u/ml 10 ml vial SC SCH ×4 (07:30→21:46)
[2017-07-02] MEDS ORDERED: Aminophylline 25 mg/ml Inj ONE (07:30)
[2017-07-02 07:41] LABS: CHLORIDE 101 mmol/L (98-107); POTASSIUM 3.9 mmol/L (3.6-5.2); SODIUM 136 mmol/L (132-148)
[2017-07-02 07:43] LABS: BILIRUBIN,TOTAL 0.7 mg/dL (0.2-1.3); CARBON DIOXIDE 27 mmol/L (22-30); GFR AFRICAN-AMERICAN > 60
[2017-07-02 07:44] LABS: ALKALINE PHOSPHATASE 95 U/L (38-126); ALT/SGPT 25 U/L (9-52); AST/SGOT 23 U/L (14-36); BLOOD UREA NITROGEN 7 mg/dL (7-17); CALCIUM 8.7 mg/dl (8.6-10.4); GLUCOSE,RANDOM 46 mg/dL (65-105); TOTAL PROTEIN 6.9 g/dL (6.3-8.3)
--- NOTE | 2017-07-02 09:48 | CP.PCM.PN ---
Subjective - Date & Time of Evaluation Date of Evaluation: 07/02/17 Time of Evaluation: 12:40 - Subjective Subjective: clinically same Objective - Vital Signs/Intake and Output Vital Signs (last 24 hours): Temp Pulse Resp BP Pulse Ox 98.8 F 71 18 163/65 H 96 07/02/17 08:35 07/02/17 08:35 07/02/17 08:35 07/02/17 08:35 07/02/17 08:35 - Medications Medications: Current Medications Acetaminophen (Tylenol 325mg Tab) 650 mg PO Q4 PRN PRN Reason: Fever >100.4 F Last Admin: 06/30/17 14:07 Dose: 650 mg Acetaminophen (Tylenol 325mg Tab) 650 mg PO Q4 PRN PRN Reason: Pain, Mild (1-3) Last Admin: 07/01/17 07:03 Dose: 650 mg Amlodipine Besylate (Norvasc) 10 mg PO DAILY [facility] Glucagon (Glucagen Diagnostic Kit) 1 mg SC ONCE PRN PRN Reason: HYPOGLYCEMIA Glycerin (Glycerin Adult Suppository) 1 sup RC DAILY PRN PRN Reason: Constipation Hydrochlorothiazide (Microzide) 12.5 mg PO DAILY [facility] Last Admin: 07/01/17 09:55 Dose: 12.5 mg Hydromorphone HCl (Dilaudid) 1 mg IVP Q4H PRN PRN Reason: Pain, severe (8-10) Last Admin: 07/02/17 05:53 Dose: 1 mg Insulin Aspart (Novolog) 0 unit SC ACHS [facility] PRN Reason: Protocol Last Admin: 07/01/17 17:47 Dose: 2 unit Insulin Aspart (Novolog Mix 70/30 (70/30 Units/Ml)) 17 units SC BID [facility] Losartan Potassium (Cozaar) 25 mg PO DAILY [facility] Last Admin: 07/01/17 09:55 Dose: 25 mg Magnesium Hydroxide (Milk Of Magnesia) 30 ml PO DAILY PRN PRN Reason: Constipation Metformin HCl (Glucophage) 1,000 mg PO BID [facility] Last Admin: 07/01/17 17:46 Dose: 1,000 mg Oxycodone/Acetaminophen (Percocet 5/325 Mg Tab) 1 tab PO Q4H PRN PRN Reason: Pain, Moderate 4-7 Stop: 07/03/17 12:02 Last Admin: 07/01/17 17:47 Dose: 1 tab Pantoprazole Sodium (Protonix Ec Tab) 40 mg PO DAILY [facility] Last Admin: 07/01/17 09:55 Dose: 40 mg Sitagliptin Phosphate (Januvia) 50 mg PO DAILY [facility] Last Admin: 07/01/17 09:55 Dose: 50 mg - Labs Labs: 07/02/17 06:20 07/02/17 06:20 PT 11.9 SECONDS (9.7-12.2) 06/29/17 12:22 INR 1.1 06/29/17 12:22 APTT 31 SECONDS (21-34) 06/29/17 12:22 - Constitutional Appears: Well - Head Exam Head Exam: ATRAUMATIC, NORMAL INSPECTION, NORMOCEPHALIC - Eye Exam Eye Exam: EOMI, Normal appearance, PERRL Pupil Exam: NORMAL ACCOMODATION, PERRL - ENT Exam ENT Exam: Mucous Membranes Moist, Normal Exam - Neck Exam Neck Exam: Full ROM, Normal Inspection. absent: Lymphadenopathy - Respiratory Exam Respiratory Exam: Decreased Breath Sounds - Cardiovascular Exam Cardiovascular Exam: REGULAR RHYTHM, +S1, +S2 - GI/Abdominal Exam GI & Abdominal Exam: Soft, Diminished Bowel Sounds - Rectal Exam Rectal Exam: Deferred
[2017-07-02] MEDS: (Novolog Mix 70/30) Insulin Aspart/Insulin Aspar 100 units/ml SC SCH ×2 (10:00→18:28)
--- NOTE | 2017-07-02 10:17 | CP.PCM.PN ---
Subjective - Date & Time of Evaluation Date of Evaluation: 07/02/17 Time of Evaluation: 10:17 - Subjective Subjective: Patient is cleared for OR as per medicine; pending cardio clearance from nuclear stress images Objective - Vital Signs/Intake and Output Vital Signs (last 24 hours): Temp Pulse Resp BP Pulse Ox 98.8 F 71 18 163/65 H 96 07/02/17 08:35 07/02/17 08:35 07/02/17 08:35 07/02/17 08:35 07/02/17 08:35 - Medications Medications: Current Medications Acetaminophen (Tylenol 325mg Tab) 650 mg PO Q4 PRN PRN Reason: Fever >100.4 F Last Admin: 06/30/17 14:07 Dose: 650 mg Acetaminophen (Tylenol 325mg Tab) 650 mg PO Q4 PRN PRN Reason: Pain, Mild (1-3) Last Admin: 07/01/17 07:03 Dose: 650 mg Amlodipine Besylate (Norvasc) 10 mg PO DAILY [facility] Glucagon (Glucagen Diagnostic Kit) 1 mg SC ONCE PRN PRN Reason: HYPOGLYCEMIA Glycerin (Glycerin Adult Suppository) 1 sup RC DAILY PRN PRN Reason: Constipation Hydrochlorothiazide (Microzide) 12.5 mg PO DAILY [facility] Last Admin: 07/01/17 09:55 Dose: 12.5 mg Hydromorphone HCl (Dilaudid) 1 mg IVP Q4H PRN PRN Reason: Pain, severe (8-10) Last Admin: 07/02/17 05:53 Dose: 1 mg Insulin Aspart (Novolog) 0 unit SC ACHS [facility] PRN Reason: Protocol Last Admin: 07/01/17 17:47 Dose: 2 unit Insulin Aspart (Novolog Mix 70/30 (70/30 Units/Ml)) 17 units SC BID [facility] Losartan Potassium (Cozaar) 25 mg PO DAILY [facility] Last Admin: 07/01/17 09:55 Dose: 25 mg Magnesium Hydroxide (Milk Of Magnesia) 30 ml PO DAILY PRN PRN Reason: Constipation Metformin HCl (Glucophage) 1,000 mg PO BID [facility] Last Admin: 07/01/17 17:46 Dose: 1,000 mg Oxycodone/Acetaminophen (Percocet 5/325 Mg Tab) 1 tab PO Q4H PRN PRN Reason: Pain, Moderate 4-7 Stop: 07/03/17 12:02 Last Admin: 07/01/17 17:47 Dose: 1 tab Pantoprazole Sodium (Protonix Ec Tab) 40 mg PO DAILY [facility] Last Admin: 07/01/17 09:55 Dose: 40 mg Sitagliptin Phosphate (Januvia) 50 mg PO DAILY [facility] Last Admin: 07/01/17 09:55 Dose: 50 mg - Labs Labs: 07/02/17 06:20 07/02/17 06:20 PT 11.9 SECONDS (9.7-12.2) 06/29/17 12:22 INR 1.1 06/29/17 12:22 APTT 31 SECONDS (21-34) 06/29/17 12:22 - Constitutional Appears: Non-toxic - Head Exam Head Exam: ATRAUMATIC - Eye Exam Eye Exam: EOMI Pupil Exam: PERRL - ENT Exam ENT Exam: Mucous Membranes Moist - Neck Exam Neck Exam: Full ROM - Respiratory Exam Respiratory Exam: Clear to Ausculation Bilateral - Cardiovascular Exam Cardiovascular Exam: REGULAR RHYTHM - GI/Abdominal Exam GI & Abdominal Exam: Soft - Extremities Exam Extremities Exam: absent: Calf Tenderness - Back Exam Back Exam: absent: CVA tenderness (L), CVA tenderness (R) - Neurological Exam Neurological Exam: Alert, Awake - Skin Skin Exam: Warm Assessment and Plan - Assessment and Plan (Free Text) Assessment: Left ankle fracture Podiatry Dr. Malik consulted, help appreciated. Ortho Dr. Pizano consulted, help appreciated. Xray shows left ankle trimalleolar fracture. S/P closed reduction and requires ORIF, scheduled on 07/03. Dilaudid 1mg IV q4 PRN. Needs cardiac clearance; going for stress today; will f/u results; Cardio Dr. Cook on consult ECHO showed preserve EF with grade one diastolic dysfunction. -medically cleared -pending cardio clearance after nuclear stress HTN Continue Norvasc 10mg PO daily, HCTZ 12.5mg PO daily, Cozaar 25mg PO daily. DM Stop oral meds. RISS, accuchecks. Novolog 70/30 15U SC BID. Prophylactic measure Protonix, SCD. Management as per .
[2017-07-02] MEDS: Pantoprazole 40 mg EC Tab PO SCH (11:52)
--- NOTE | 2017-07-02 11:56 | CP.PCM.PN ---
Subjective - Date & Time of Evaluation Date of Evaluation: 07/02/17 Time of Evaluation: 06:45 - Subjective Subjective: Molina Archer DO PGY1 - Cardiology Progress Note for Dr. Cook Patient seen and examined at bedside. Had an episode of hypoglycemia overnight, which improved after she ate and received one amp of D50. She denies having any symptoms at that time. Patient went for pharmacologic nuclear stress test this morning. She currently denies any chest pain, SOB, palpitations, dizziness. Patient is for OR tomorrow for left ankle ORIF. Objective - Vital Signs/Intake and Output Vital Signs (last 24 hours): Temp Pulse Resp BP Pulse Ox 98.8 F 71 18 163/65 H 96 07/02/17 08:35 07/02/17 08:35 07/02/17 08:35 07/02/17 08:35 07/02/17 08:35 - Medications Medications: Current Medications Acetaminophen (Tylenol 325mg Tab) 650 mg PO Q4 PRN PRN Reason: Fever >100.4 F Last Admin: 06/30/17 14:07 Dose: 650 mg Acetaminophen (Tylenol 325mg Tab) 650 mg PO Q4 PRN PRN Reason: Pain, Mild (1-3) Last Admin: 07/01/17 07:03 Dose: 650 mg Amlodipine Besylate (Norvasc) 10 mg PO DAILY [facility] Last Admin: 07/02/17 11:53 Dose: 10 mg Glucagon (Glucagen Diagnostic Kit) 1 mg SC ONCE PRN PRN Reason: HYPOGLYCEMIA Glycerin (Glycerin Adult Suppository) 1 sup RC DAILY PRN PRN Reason: Constipation Hydrochlorothiazide (Microzide) 12.5 mg PO DAILY [facility] Last Admin: 07/02/17 11:52 Dose: 12.5 mg Hydromorphone HCl (Dilaudid) 1 mg IVP Q4H PRN PRN Reason: Pain, severe (8-10) Last Admin: 07/02/17 05:53 Dose: 1 mg Insulin Aspart (Novolog) 0 unit SC ACHS [facility] PRN Reason: Protocol Last Admin: 07/01/17 17:47 Dose: 2 unit Insulin Aspart (Novolog Mix 70/30 (70/30 Units/Ml)) 17 units SC BID [facility] Losartan Potassium (Cozaar) 25 mg PO DAILY [facility] Last Admin: 07/02/17 11:53 Dose: 25 mg Magnesium Hydroxide (Milk Of Magnesia) 30 ml PO DAILY PRN PRN Reason: Constipation Metformin HCl (Glucophage) 1,000 mg PO BID [facility] Last Admin: 07/01/17 17:46 Dose: 1,000 mg Oxycodone/Acetaminophen (Percocet 5/325 Mg Tab) 1 tab PO Q4H PRN PRN Reason: Pain, Moderate 4-7 Stop: 07/03/17 12:02 Last Admin: 07/01/17 17:47 Dose: 1 tab Pantoprazole Sodium (Protonix Ec Tab) 40 mg PO DAILY [facility] Last Admin: 07/02/17 11:52 Dose: 40 mg Sitagliptin Phosphate (Januvia) 50 mg PO DAILY [facility] Last Admin: 07/01/17 09:55 Dose: 50 mg - Labs Labs: 07/02/17 06:20 07/02/17 06:20 PT 11.9 SECONDS (9.7-12.2) 06/29/17 12:22 INR 1.1 06/29/17 12:22 APTT 31 SECONDS (21-34) 06/29/17 12:22 - Constitutional Appears: Non-toxic, No Acute Distress - Head Exam Head Exam: ATRAUMATIC, NORMOCEPHALIC - Eye Exam Eye Exam: EOMI, Normal appearance - ENT Exam ENT Exam: Mucous Membranes Moist - Neck Exam Neck Exam: Full ROM, Normal Inspection - Respiratory Exam Respiratory Exam: Clear to Ausculation Bilateral, NORMAL BREATHING PATTERN. absent: Rales, Rhonchi, Wheezes - Cardiovascular Exam Cardiovascular Exam: RRR, +S1, +S2 - GI/Abdominal Exam GI & Abdominal Exam: Soft. absent: Tenderness - Extremities Exam Additional comments: No calf tenderness or swelling in RLE LLE unable to assess due to immobilizing brace and exquisite tenderness with manipulation - Neurological Exam Neurological Exam: Alert, Awake, Oriented x3 - Psychiatric Exam Psychiatric exam: Normal Affect, Normal Mood - Skin Skin Exam: Dry, Intact Assessment and Plan - Assessment and Plan (Free Text) Assessment: 71 yo F with PMH of HTN and DM presents with fractured ankle, unknown etiology, questionable syncopal episode Plan: 1. Syncope - Patient does not recall specifics of her injury, and appears to be confabulating the circumstances surrounding the morning prior to admission - No known cardiac or neurologic history; no prior syncopal episodes - No confirmed, observed syncopal episode; only presumed based on history of fall and ankle fracture - Per [facility] staff, patient was independent and physically active prior to presentation, with normal mental status; walks with cane - EKG on admission shows no arrhythmia, no signs of acute ischemia - Continues to have sporadic, short lived episodes of inappropriate sinus tachycardia - D-dimer slightly elevated, more likely 2/2 acute ankle fracture, but LE duplex pending - Orthostatic vital signs normal - Patient was ambulatory, with no prior history of hypercoagulability, but DVT would explain sudden unexplained pain and swelling in lower extremity - Subsequent mechanical fall might explain ankle fracture - Echo complete; normal function, no significant valvular abnormalities; no wall motion abnormalities - Nuclear stress test complete, pending stress images - If cardiac workup negative, patient may require neurologic workup to r/o seizure or CVA 2. Preoperative cardiovascular exam - Patient has no known cardiac history - Elderly AA female with long smoking history and prior history of alcohol abuse ; questionable syncopal episode - EKG normal - Nuclear stress test complete, pending stress images 3. HTN - BP improved after medication change - Continue norvasc - Continue to monitor BP and titrate medications as needed 4. DM - Patient is currently on insulin as well as oral hypoglycemics - Had an episode of hypoglycemia overnight, and is again hypoglycemic in AM labs - Sporadic hypoglycemia on current regimen possible etiology for questionable syncopal episode - Maintain euglycemia 5. Ankle fracture - s/p closed reduction - Ortho and podiatry following - Precludes exercise stress test - Scheduled for ORIF on Thursday, cardiac clearance requested Patient discussed and reviewed with attending; disposition pending results of imaging studies
--- NOTE | 2017-07-02 14:47 | CP.PCM.PN ---
Subjective - Date & Time of Evaluation Date of Evaluation: 07/02/17 Time of Evaluation: 11:00 - Subjective Subjective: Pt seen at bedside. Clinically same. Pt in good spirits. Aware she is to go to OR tomorrow morning. Pain well controlled. Resting comfortably upon arrival. Objective - Vital Signs/Intake and Output Vital Signs (last 24 hours): Temp Pulse Resp BP Pulse Ox 98.8 F 71 18 163/65 H 96 07/02/17 08:35 07/02/17 08:35 07/02/17 08:35 07/02/17 08:35 07/02/17 08:35 - Medications Medications: Current Medications Acetaminophen (Tylenol 325mg Tab) 650 mg PO Q4 PRN PRN Reason: Fever >100.4 F Last Admin: 06/30/17 14:07 Dose: 650 mg Acetaminophen (Tylenol 325mg Tab) 650 mg PO Q4 PRN PRN Reason: Pain, Mild (1-3) Last Admin: 07/02/17 11:59 Dose: 650 mg Amlodipine Besylate (Norvasc) 10 mg PO DAILY [facility] Last Admin: 07/02/17 11:53 Dose: 10 mg Glucagon (Glucagen Diagnostic Kit) 1 mg SC ONCE PRN PRN Reason: HYPOGLYCEMIA Glycerin (Glycerin Adult Suppository) 1 sup RC DAILY PRN PRN Reason: Constipation Hydrochlorothiazide (Microzide) 12.5 mg PO DAILY [facility] Last Admin: 07/02/17 11:52 Dose: 12.5 mg Hydromorphone HCl (Dilaudid) 1 mg IVP Q4H PRN PRN Reason: Pain, severe (8-10) Last Admin: 07/02/17 05:53 Dose: 1 mg Insulin Aspart (Novolog) 0 unit SC ACHS [facility] PRN Reason: Protocol Last Admin: 07/02/17 12:27 Dose: 6 unit Insulin Aspart (Novolog Mix 70/30 (70/30 Units/Ml)) 17 units SC BID [facility] Last Admin: 07/02/17 10:00 Dose: Not Given Losartan Potassium (Cozaar) 25 mg PO DAILY [facility] Last Admin: 07/02/17 11:53 Dose: 25 mg Magnesium Hydroxide (Milk Of Magnesia) 30 ml PO DAILY PRN PRN Reason: Constipation Metformin HCl (Glucophage) 1,000 mg PO BID [facility] Last Admin: 07/01/17 17:46 Dose: 1,000 mg Oxycodone/Acetaminophen (Percocet 5/325 Mg Tab) 1 tab PO Q4H PRN PRN Reason: Pain, Moderate 4-7 Stop: 07/03/17 12:02 Last Admin: 07/01/17 17:47 Dose: 1 tab Pantoprazole Sodium (Protonix Ec Tab) 40 mg PO DAILY [facility] Last Admin: 07/02/17 11:52 Dose: 40 mg Sitagliptin Phosphate (Januvia) 50 mg PO DAILY [facility] Last Admin: 07/01/17 09:55 Dose: 50 mg - Labs Labs: 07/02/17 06:20 07/02/17 06:20 PT 11.9 SECONDS (9.7-12.2) 06/29/17 12:22 INR 1.1 06/29/17 12:22 APTT 31 SECONDS (21-34) 06/29/17 12:22 - Constitutional Appears: Well, Non-toxic, No Acute Distress - Neurological Exam Neurological Exam: Alert, Awake, Oriented x3 - Psychiatric Exam Psychiatric exam: Normal Affect, Normal Mood Assessment and Plan - Assessment and Plan (Free Text) Assessment: 71 year odl female with left ankle trimalleolar fracture. Plan: Pt seen and evaluated. Chart, labs, and vitals reviewed. Minor leukocytosis= 11.2K secondary to acute stress reaction s/p trauma; afebrile. Discussed pt in detail with attending, Dr. Malik, who endorsed the following plan. -Surgical intervention to proceed. Discussed in detail with patient risk, benefits, post-operative management, and complication for surgical intervention. Pt verbalizes understanding and wishes to proceed. - Pt to go to OR Tuesday 07/03 midday for left ankle ORIF. Medical clearance by - pending Cardiac clearance by Dr. Cook- pending results of Nuclear stress test which was taken today. Pt to remain non-weightbearing to left lower extremity. Analgesic control per primary team. Podiatry will continue to follow patient while inhouse.
[2017-07-02] MEDS: Oxycodone/Acetaminophen 5/325 mg Tab PO PRN (17:36)
[2017-07-03 06:37] LABS: BASO % 0.6 % (0.0-2.0); EOS # 0.3 K/uL (0.0-0.7); EOS % 3.1 % (0.0-4.0); HEMATOCRIT 35.2 % (34.0-47.0); LYMPH # 2.4 K/uL (1.0-4.3); MEAN CELL VOLUME 90.8 fL (81.0-99.0); MEAN CORPUSCULAR HEMOGLOBIN 31.1 pg (27.0-31.0); MEAN CORPUSCULAR HGB CONC 34.2 g/dL (33.0-37.0); MEAN PLATELET VOLUME 8.6 fL (7.2-11.7); MONO # 0.6 K/uL (0.0-0.8); MONO % 7.2 % (0.0-10.0); RED CELL DISTRIBUTION WIDTH 13.6 % (11.5-14.5); WHITE BLOOD COUNT 8.1 K/uL (4.8-10.8)
[2017-07-03 07:14] LABS: CHLORIDE 98 mmol/L (98-107)
[2017-07-03 07:15] LABS: POTASSIUM 3.8 mmol/L (3.6-5.2); SODIUM 135 mmol/L (132-148)
[2017-07-03 07:18] LABS: ALB/GLOB RATIO 0.9 (1.0-2.1); ALKALINE PHOSPHATASE 103 U/L (38-126); ALT/SGPT 24 U/L (9-52); AST/SGOT 20 U/L (14-36); BILIRUBIN,TOTAL 0.8 mg/dL (0.2-1.3); BLOOD UREA NITROGEN 6 mg/dL (7-17); CALCIUM 8.5 mg/dl (8.6-10.4); CARBON DIOXIDE 28 mmol/L (22-30); GFR AFRICAN-AMERICAN > 60; GLUCOSE,RANDOM 195 mg/dL (65-105); TOTAL PROTEIN 6.6 g/dL (6.3-8.3)
[2017-07-03] MEDS: (Novolog) Insulin Aspart, Recombinant 100 u/ml 10 ml vial SC SCH ×4 (07:58→22:49)
[2017-07-03] MEDS: HYDROmorphone 0.5 mg/0.5 ml ISec IVP PRN (08:07)
--- NOTE | 2017-07-03 08:57 | CARD ---
APPROVED REPORT Protocol: LEXISCAN Test Type: LEXISCAN STRESS Test Indications: PRE OP Target HR: 148 bpm Resting ECG: normal Resting Heart Rate: 84 bpm Resting Blood Pressure: 150/80mmHg submaximum (85%): 126 bpm TEST SUMMARY [id number]:02..1.081/.1. PREINFSNHYPERV.21:[id number]/80.1. INFUSIONDOSE 100:300.00.01.096/.1. [id number]:[id number]/80.5. PROCEDURE Pharmacologic stress testing was performed using 0.4mg per 5ml of regadenoson given intravenously over 7-10 seconds. POST EXERCISE Reason for Termination: Protocol Completed Target HR: No Max HR: 96 bpm 78% of Maximum Predicted HR: 148 bpm Exercise duration: 00:30 min:sec, 0 Stage Exercise capacity: 1.0METs Max Blood Pressure: 150/80mmHg Blood Pressure response to exercise: not assessed Heart Rate response to exercise: not assessed Chest Pain: No, none Angina index: 0 Arrhythmia: No, none ST Change: No, none Deviation: 0 mm EXAM: Myocardial Perfusion REST/STRESS Imaging Protocol The imaging protocol used to acquire images was Rest Tc-99m/stress Tc-99m 1 day Rest Spect myocardial perfusion imaging was performed in supine position 41 minutes following the injection of 12.8 mCi of Tc-99 Myoview. Gated Stress Spect was performed 40 minutes after intravenous 32.7 mCi Tc-99 Myoview injection. The images were gated to evaluate regional wall motion and calculate ventricular ejection fraction.Images were reconstructed using backfilter projection method in short horizontal and verticle long axis. Spect slices were generated. RESTING DATA EDV69.62wjOT1.40L/min ESV19.00mlMyocardial Rnik521.00g Av. Heart Rate89.00bpm EF72.00% STRESS DATA EDV58.36mwUG7.10L/min ESV11.00mlMyocardial Aitz959.00g EF81.00% Regional WT score at stress:1.00 Regional WM score at stress:0.00 Summed WT score at stress:4.00 Av. Heart Nivy191.00bpmSummed WM score at stress:0.00 Study quality was good. Left Ventricular size was Normal at Rest and Stress. The rest and stress images show normal perfusion, normal contraction and thickening. LV Perf. Quant 17 Seg. SSS0.00 17 Seg. SRS0.00 17 Seg. SDS0.00 Stress Defect Extent (% LAD)0.00Rest Defect Extent (% LAD)0.00Rev. Defect Extent (% LAD)0.00 Stress Defect Extent (% LCX)0.00Rest Defect Extent (% LCX)0.00Rev. Defect Extent (% LCX)0.00 Stress Defect Extent (% RCA)0.00Rest Defect Extent (% RCA)0.00Rev. Defect Extent (% RCA)0.00 Stress Defect Extent (% BASIL)0.00Rest Defect Extent (% BASIL)0.00Rev. Defect Extent (% BASIL)0.00 Other Information Quality:Good IMPRESSION Normal Myocardial Perfusion exercise stress study Global LV Function: Normal Stress Test Summary: Normal LV Perfusion Summary: Normal Metabolism/Perfusion There are no defects. Conclusion 1. - Normal myocardial perfusion study with no evidence of reversible ischemia 2. - Normal LVEF
[2017-07-03] MEDS: Pantoprazole 40 mg EC Tab PO SCH (09:30)
[2017-07-03] MEDS: (Novolog Mix 70/30) Insulin Aspart/Insulin Aspar 100 units/ml SC SCH ×2 (09:30→17:24)
--- NOTE | 2017-07-03 10:00 | CP.PCM.PN ---
Subjective - Date & Time of Evaluation Date of Evaluation: 07/03/17 Time of Evaluation: 09:59 - Subjective Subjective: Patient seen and examined at bedside this AM; denies any complaints; nervous about surgery however is excited to hopefully be ambulating again. Denies any other complaints. Objective - Vital Signs/Intake and Output Vital Signs (last 24 hours): Temp Pulse Resp BP Pulse Ox 98.5 F 74 20 154/72 H 98 07/03/17 07:00 07/03/17 07:00 07/03/17 07:00 07/03/17 07:00 07/03/17 07:00 - Medications Medications: Current Medications Acetaminophen (Tylenol 325mg Tab) 650 mg PO Q4 PRN PRN Reason: Fever >100.4 F Last Admin: 06/30/17 14:07 Dose: 650 mg Acetaminophen (Tylenol 325mg Tab) 650 mg PO Q4 PRN PRN Reason: Pain, Mild (1-3) Last Admin: 07/02/17 21:45 Dose: 650 mg Amlodipine Besylate (Norvasc) 10 mg PO DAILY [facility] Last Admin: 07/02/17 11:53 Dose: 10 mg Glucagon (Glucagen Diagnostic Kit) 1 mg SC ONCE PRN PRN Reason: HYPOGLYCEMIA Glycerin (Glycerin Adult Suppository) 1 sup RC DAILY PRN PRN Reason: Constipation Hydrochlorothiazide (Microzide) 12.5 mg PO DAILY [facility] Last Admin: 07/02/17 11:52 Dose: 12.5 mg Hydromorphone HCl (Dilaudid) 1 mg IVP Q4H PRN PRN Reason: Pain, severe (8-10) Last Admin: 07/03/17 08:07 Dose: 1 mg Insulin Aspart (Novolog) 0 unit SC ACHS [facility] PRN Reason: Protocol Last Admin: 07/03/17 07:58 Dose: Not Given Insulin Aspart (Novolog Mix 70/30 (70/30 Units/Ml)) 17 units SC BID [facility] Last Admin: 07/02/17 18:28 Dose: Not Given Losartan Potassium (Cozaar) 25 mg PO DAILY [facility] Last Admin: 07/03/17 09:06 Dose: 25 mg Magnesium Hydroxide (Milk Of Magnesia) 30 ml PO DAILY PRN PRN Reason: Constipation Metformin HCl (Glucophage) 1,000 mg PO BID [facility] Last Admin: 07/01/17 17:46 Dose: 1,000 mg Oxycodone/Acetaminophen (Percocet 5/325 Mg Tab) 1 tab PO Q4H PRN PRN Reason: Pain, Moderate 4-7 Stop: 07/03/17 12:02 Last Admin: 07/02/17 17:36 Dose: 1 tab Pantoprazole Sodium (Protonix Ec Tab) 40 mg PO DAILY [facility] Last Admin: 07/02/17 11:52 Dose: 40 mg Sitagliptin Phosphate (Januvia) 50 mg PO DAILY [facility] Last Admin: 07/01/17 09:55 Dose: 50 mg - Labs Labs: 07/03/17 06:30 07/03/17 06:30 PT 11.9 SECONDS (9.7-12.2) 06/29/17 12:22 INR 1.1 06/29/17 12:22 APTT 31 SECONDS (21-34) 06/29/17 12:22 - Constitutional Appears: Non-toxic - Head Exam Head Exam: ATRAUMATIC - Eye Exam Eye Exam: EOMI - ENT Exam ENT Exam: Mucous Membranes Moist - Neck Exam Neck Exam: Full ROM. absent: Lymphadenopathy - Respiratory Exam Respiratory Exam: Clear to Ausculation Bilateral - Cardiovascular Exam Cardiovascular Exam: REGULAR RHYTHM - GI/Abdominal Exam GI & Abdominal Exam: Soft - Back Exam Back Exam: absent: CVA tenderness (L), CVA tenderness (R) - Neurological Exam Neurological Exam: Awake - Psychiatric Exam Psychiatric exam: Normal Affect Assessment and Plan - Assessment and Plan (Free Text) Assessment: Left ankle fracture Podiatry Dr. Malik consulted, help appreciated. Ortho Dr. Pizano consulted, help appreciated. Xray shows left ankle trimalleolar fracture. S/P closed reduction and requires ORIF, scheduled on 07/03. Dilaudid 1mg IV q4 PRN. MUGA showed no abnormal findings; cardiac clearance for surgery ECHO showed preserve EF with grade one diastolic dysfunction. -medically cleared -cardio cleared -will f/u s/p surgery; pain control as per podiatry HTN Continue Norvasc 10mg PO daily, HCTZ 12.5mg PO daily, Cozaar 25mg PO daily. DM Stop oral meds. RISS, accuchecks. Novolog 70/30 15U SC BID. Prophylactic measure Protonix, SCD. Management as per .
--- NOTE | 2017-07-03 10:01 | CP.PCM.PN ---
Subjective - Date & Time of Evaluation Date of Evaluation: 07/03/17 Time of Evaluation: 11:49 - Subjective Subjective: Podiatry progress note -Dr. Malik 71 y/o female patient seen at bedside today for left ankle fracture. Pt is aware she is to go to OR today. Pt stats she has been NPO since midnight. Pt is seen resting comfortably in bed at time of visit. Denies f/n/v/c/sob/cp at this time. Objective - Vital Signs/Intake and Output Vital Signs (last 24 hours): Temp Pulse Resp BP Pulse Ox 98.5 F 74 20 154/72 H 98 07/03/17 07:00 07/03/17 07:00 07/03/17 07:00 07/03/17 07:00 07/03/17 07:00 - Medications Medications: Current Medications Acetaminophen (Tylenol 325mg Tab) 650 mg PO Q4 PRN PRN Reason: Fever >100.4 F Last Admin: 06/30/17 14:07 Dose: 650 mg Acetaminophen (Tylenol 325mg Tab) 650 mg PO Q4 PRN PRN Reason: Pain, Mild (1-3) Last Admin: 07/02/17 21:45 Dose: 650 mg Amlodipine Besylate (Norvasc) 10 mg PO DAILY [facility] Last Admin: 07/02/17 11:53 Dose: 10 mg Glucagon (Glucagen Diagnostic Kit) 1 mg SC ONCE PRN PRN Reason: HYPOGLYCEMIA Glycerin (Glycerin Adult Suppository) 1 sup RC DAILY PRN PRN Reason: Constipation Hydrochlorothiazide (Microzide) 12.5 mg PO DAILY [facility] Last Admin: 07/02/17 11:52 Dose: 12.5 mg Hydromorphone HCl (Dilaudid) 1 mg IVP Q4H PRN PRN Reason: Pain, severe (8-10) Last Admin: 07/03/17 08:07 Dose: 1 mg Insulin Aspart (Novolog) 0 unit SC ACHS [facility] PRN Reason: Protocol Last Admin: 07/03/17 07:58 Dose: Not Given Insulin Aspart (Novolog Mix 70/30 (70/30 Units/Ml)) 17 units SC BID [facility] Last Admin: 07/02/17 18:28 Dose: Not Given Losartan Potassium (Cozaar) 25 mg PO DAILY [facility] Last Admin: 07/03/17 09:06 Dose: 25 mg Magnesium Hydroxide (Milk Of Magnesia) 30 ml PO DAILY PRN PRN Reason: Constipation Metformin HCl (Glucophage) 1,000 mg PO BID [facility] Last Admin: 07/01/17 17:46 Dose: 1,000 mg Oxycodone/Acetaminophen (Percocet 5/325 Mg Tab) 1 tab PO Q4H PRN PRN Reason: Pain, Moderate 4-7 Stop: 07/03/17 12:02 Last Admin: 07/02/17 17:36 Dose: 1 tab Pantoprazole Sodium (Protonix Ec Tab) 40 mg PO DAILY [facility] Last Admin: 07/02/17 11:52 Dose: 40 mg Sitagliptin Phosphate (Januvia) 50 mg PO DAILY [facility] Last Admin: 07/01/17 09:55 Dose: 50 mg - Labs Labs: 07/03/17 06:30 07/03/17 06:30 PT 11.9 SECONDS (9.7-12.2) 06/29/17 12:22 INR 1.1 06/29/17 12:22 APTT 31 SECONDS (21-34) 06/29/17 12:22 Assessment and Plan - Assessment and Plan (Free Text) Assessment: 71 year old femlar with left ankle fracture. Plan: Pt was seen and examined at bedside. Pt NPO status was confirmed All Pre-op testing and clearances are in the chart Pt has exhausted all conservative treatment at this time and is opting for surgical intervention Pt was explained procedure and post-operative course All pt's questions were answered to satisfaction No guarantees were made. Pt understands all risks, benefits and complications of procedure Podiatry will continue to follow patient while inhouse.
--- NOTE | 2017-07-03 10:17 | CP.PCM.PN ---
Subjective - Date & Time of Evaluation Date of Evaluation: 07/03/17 Time of Evaluation: 07:10 - Subjective Subjective: Molina Archer DO PGY1 - Cardiology Progress Note for Dr. Cook Patient seen and examined at bedside, no events overnight. Patient appeared very uncomfortable, complaining of pain in her left ankle. She denies any chest pain, SOB, or palpitations. One episode of tachycardia was noted on the messenger office yesterday at around noon, but patient reports that she did not feel any symptoms at that time. Objective - Vital Signs/Intake and Output Vital Signs (last 24 hours): Temp Pulse Resp BP Pulse Ox 98.5 F 74 20 154/72 H 98 07/03/17 07:00 07/03/17 07:00 07/03/17 07:00 07/03/17 07:00 07/03/17 07:00 - Medications Medications: Current Medications Acetaminophen (Tylenol 325mg Tab) 650 mg PO Q4 PRN PRN Reason: Fever >100.4 F Last Admin: 06/30/17 14:07 Dose: 650 mg Acetaminophen (Tylenol 325mg Tab) 650 mg PO Q4 PRN PRN Reason: Pain, Mild (1-3) Last Admin: 07/02/17 21:45 Dose: 650 mg Amlodipine Besylate (Norvasc) 10 mg PO DAILY [facility] Last Admin: 07/02/17 11:53 Dose: 10 mg Glucagon (Glucagen Diagnostic Kit) 1 mg SC ONCE PRN PRN Reason: HYPOGLYCEMIA Glycerin (Glycerin Adult Suppository) 1 sup RC DAILY PRN PRN Reason: Constipation Hydrochlorothiazide (Microzide) 12.5 mg PO DAILY [facility] Last Admin: 07/02/17 11:52 Dose: 12.5 mg Hydromorphone HCl (Dilaudid) 1 mg IVP Q4H PRN PRN Reason: Pain, severe (8-10) Last Admin: 07/03/17 08:07 Dose: 1 mg Insulin Aspart (Novolog) 0 unit SC ACHS [facility] PRN Reason: Protocol Last Admin: 07/03/17 07:58 Dose: Not Given Insulin Aspart (Novolog Mix 70/30 (70/30 Units/Ml)) 17 units SC BID [facility] Last Admin: 07/02/17 18:28 Dose: Not Given Losartan Potassium (Cozaar) 25 mg PO DAILY [facility] Last Admin: 07/03/17 09:06 Dose: 25 mg Magnesium Hydroxide (Milk Of Magnesia) 30 ml PO DAILY PRN PRN Reason: Constipation Metformin HCl (Glucophage) 1,000 mg PO BID [facility] Last Admin: 07/01/17 17:46 Dose: 1,000 mg Oxycodone/Acetaminophen (Percocet 5/325 Mg Tab) 1 tab PO Q4H PRN PRN Reason: Pain, Moderate 4-7 Stop: 07/03/17 12:02 Last Admin: 07/02/17 17:36 Dose: 1 tab Pantoprazole Sodium (Protonix Ec Tab) 40 mg PO DAILY [facility] Last Admin: 07/02/17 11:52 Dose: 40 mg Sitagliptin Phosphate (Januvia) 50 mg PO DAILY [facility] Last Admin: 07/01/17 09:55 Dose: 50 mg - Labs Labs: 07/03/17 06:30 07/03/17 06:30 PT 11.9 SECONDS (9.7-12.2) 06/29/17 12:22 INR 1.1 06/29/17 12:22 APTT 31 SECONDS (21-34) 06/29/17 12:22 - Constitutional Appears: Non-toxic, In Acute Distress - Head Exam Head Exam: ATRAUMATIC, NORMOCEPHALIC - Eye Exam Eye Exam: EOMI, Normal appearance - ENT Exam ENT Exam: Mucous Membranes Moist - Neck Exam Neck Exam: Normal Inspection - Respiratory Exam Respiratory Exam: Clear to Ausculation Bilateral, NORMAL BREATHING PATTERN. absent: Rales, Rhonchi, Wheezes, Respiratory Distress - Cardiovascular Exam Cardiovascular Exam: RRR, +S1, +S2. absent: Tachycardia - GI/Abdominal Exam GI & Abdominal Exam: Soft. absent: Tenderness - Back Exam Additional comments: Right lower leg no edema or calf tenderness, sensation and motor function intact Left lower leg with immobilizing brace, exquisite tenderness. No edema above or below the extent of the brace. Nail bed capillary refill normal, motor function and sensation intact. - Neurological Exam Neurological Exam: Alert, Awake, Oriented x3 - Psychiatric Exam Psychiatric exam: Normal Affect, Normal Mood - Skin Skin Exam: Dry, Intact Assessment and Plan - Assessment and Plan (Free Text) Assessment: 71 yo F with PMH of HTN and DM presents with fractured ankle, unknown etiology, questionable syncopal episode Plan: 1. Syncope - Patient does not recall specifics of her injury, and appears to be confabulating the circumstances surrounding the morning prior to admission - No known cardiac or neurologic history; no prior syncopal episodes - No confirmed, observed syncopal episode; only presumed based on history of fall and ankle fracture - Per detention staff, patient was independent and physically active prior to presentation, with normal mental status; walks with cane - EKG on admission shows no arrhythmia, no signs of acute ischemia - Had one episode of tachycardia yesterday on messenger office, intermittent sinus tachycardia lasting about one hour, up to 120bpm - D-dimer slightly elevated, more likely 2/2 acute ankle fracture; LE duplex appears negative, pending official read - Likely 2/2 hyperadrenergic state due to acute ankle fracture - Orthostatic vital signs normal - Patient was ambulatory, with no prior history of hypercoagulability - Echo complete; normal function, no significant valvular abnormalities; no wall motion abnormalities - Nuclear stress test complete, normal stress test, normal LV function - No documented or observed syncopal episodes prior to or during hospitalization ; cardiac workup negative; presumed syncope not of cardiac origin 2. Preoperative cardiovascular exam - Patient has no known cardiac history - Elderly AA female with long smoking history and prior history of alcohol abuse ; questionable syncopal episode - EKG normal - Nuclear stress test complete, normal myocardial perfusion study with no evidence of reversible ischemia, and normal LVEF - Per ACC/AHA guideline, patient may proceed with planned surgery with low risk for major adverse cardiac events 3. HTN - Continue norvasc - Continue to monitor BP and titrate medications as needed 4. DM - Patient is currently on insulin; oral hypoglycemics held - Sporadic hypoglycemia on prior regimen possible etiology for questionable syncopal episode - Maintain euglycemia 5. Ankle fracture - s/p closed reduction - Ortho and podiatry following - Precludes exercise stress test - Scheduled for ORIF today Patient discussed and reviewed with attending; disposition pending results of imaging studies
--- NOTE | 2017-07-03 13:03 | VASCLAB ---
PROCEDURE: Lower Extremity Venous Duplex Exam. HISTORY: Leg swelling PRIORS: None. TECHNIQUE: Bilateral common femoral, femoral, popliteal and posterior tibial, peroneal and great saphenous veins were evaluated. Flow was assessed with color Doppler, compressibility, assessment of phasic flow and augmentation response. Report prepared by KAREN Delarosa, RVT FINDINGS: RIGHT: 1. Common Femoral Vein: 1.1. Compressibility - Fully compressible: Thrombus - None : Flow - Phasic: Augmentation -Normal: Reflux - None. 2. Femoral Vein: 2.1. Compressibility - Fully compressible: Thrombus - None : Flow - Phasic: Augmentation -Normal: Reflux - None. 3. Popliteal Vein: 3.1. Compressibility - Fully compressible: Thrombus - None : Flow - Phasic: Augmentation -Normal: Reflux - None. 4. Posterior Tibial Vein: 4.1. Compressibility - Fully compressible: Thrombus - None: Flow - Phasic: Augmentation -Normal: Reflux - None. 5. Peroneal Vein: 5.1. Compressibility - Fully compressible: Thrombus - None: Flow - Phasic: Augmentation -Normal: Reflux - None. 6. Great Saphenous Vein: 6.1. Compressibility - Fully compressible: Thrombus - None: Flow - Phasic: Augmentation - Normal: Reflux - None. LEFT: 1. Common Femoral Vein: 1.1. Compressibility - Fully compressible: Thrombus - None: Flow - Phasic: Augmentation -Normal: Reflux - None. 2. Femoral Vein: 2.1. Compressibility - Fully compressible: Thrombus - None: Flow - Phasic: Augmentation -Normal: Reflux - None. 3. Popliteal Vein: 3.1. Compressibility - Fully compressible: Thrombus - None : Flow - Phasic: Augmentation -Normal: Reflux - None. 4. Posterior Tibial Vein: 4.1. Compressibility - : Thrombus - : Flow - : Augmentation -: Reflux - . 5. Peroneal Vein: 5.1. Compressibility - : Thrombus - : Flow - : Augmentation -: Reflux - . 6. Great Saphenous Vein: 6.1. Compressibility - Fully compressible: Thrombus - None: Flow - Phasic: Augmentation - Normal: Reflux - None. OTHER FINDINGS: Right: None significant. Left: Due to bandage on lower leg, the left peroneal and posterior tibial vein are not visualized. IMPRESSION: Right: No evidence of deep or superficial vein thrombosis of the right lower extremity. Normal valve function noted of the right side. Left: No evidence of deep or superficial vein thrombosis of the left lower extremity. Normal valve function noted of the left side.
[2017-07-03] MEDS ORDERED: Bacitracin 50,000 UNIT in Sodium Chloride 0.9% Irrig 1,000 ML IR SCH (15:14)
[2017-07-03] MEDS ORDERED: Bacitracin Ointment 30 GM TUBE ONE (15:35)
[2017-07-03] MEDS ORDERED: ceFAZolin IV 1 gm in Dextrose 1 GM/50 ML BAG IVPB ONE (15:35)
[2017-07-03] MEDS ORDERED: Midazolam 2 MG/2 ML VIAL ONE (15:38)
[2017-07-03] MEDS ORDERED: Propofol 10 mg/ml Inj (20 ML) ONE (15:38)
[2017-07-03] MEDS ORDERED: Lactated Ringer's 1,000 ML IV ONE ×2 (15:45→18:00)
[2017-07-03] MEDS ORDERED: HYDROmorphone 0.5 mg/0.5 ml ISec IVP PRN (16:41)
[2017-07-03] MEDS ORDERED: Morphine 4 MG/ML VIAL ONE (16:46)
[2017-07-03] MEDS ORDERED: Bupivacaine HCl 0.5% PF (10 ml) Inj ONE ×2 (17:16→17:51)
[2017-07-03] MEDS ORDERED: Sodium Chloride 0.9% 0 ML IV ONE (17:16)
--- NOTE | 2017-07-03 18:19 | PCM.SURG1 ---
Surgeon's Initial Post Op Note - Surgeon's Notes Surgeon: [employer] Aide: kelli PGY 3, albert PGY 2 Type of Anesthesia: General LMA, Local Pre-Operative Diagnosis: left ankle trimall fracture Operative Findings: See dictation Post-Operative Diagnosis: Same Operation Performed: left ankle Trimalleolar ORIF Specimen/Specimens Removed: none Estimated Blood Loss: EBL {In ML}: 15 Blood Products Given: N/A Drains Used: No Drains Post-Op Condition: Good Date of Surgery/Procedure: 07/03/17 Time of Surgery/Procedure: 18:18
--- NOTE | 2017-07-03 18:59 | CP.PCM.PN ---
Subjective - Date & Time of Evaluation Date of Evaluation: 07/03/17 Time of Evaluation: 12:00 - Subjective Subjective: clinically same Objective - Vital Signs/Intake and Output Vital Signs (last 24 hours): Temp Pulse Resp BP Pulse Ox 98.5 F 74 20 154/72 H 98 07/03/17 07:00 07/03/17 08:00 07/03/17 07:00 07/03/17 07:00 07/03/17 07:00 - Medications Medications: Current Medications Acetaminophen (Tylenol 325mg Tab) 650 mg PO Q4 PRN PRN Reason: Fever >100.4 F Last Admin: 06/30/17 14:07 Dose: 650 mg Acetaminophen (Tylenol 325mg Tab) 650 mg PO Q4 PRN PRN Reason: Pain, Mild (1-3) Last Admin: 07/02/17 21:45 Dose: 650 mg Amlodipine Besylate (Norvasc) 10 mg PO DAILY [facility] Last Admin: 07/03/17 09:30 Dose: Not Given Glucagon (Glucagen Diagnostic Kit) 1 mg SC ONCE PRN PRN Reason: HYPOGLYCEMIA Glycerin (Glycerin Adult Suppository) 1 sup RC DAILY PRN PRN Reason: Constipation Hydrochlorothiazide (Microzide) 12.5 mg PO DAILY [facility] Last Admin: 07/03/17 09:30 Dose: Not Given Hydromorphone HCl (Dilaudid) 1 mg IVP Q4H PRN PRN Reason: Pain, severe (8-10) Last Admin: 07/03/17 08:07 Dose: 1 mg Insulin Aspart (Novolog) 0 unit SC ACHS [facility] PRN Reason: Protocol Last Admin: 07/03/17 17:24 Dose: Not Given Insulin Aspart (Novolog Mix 70/30 (70/30 Units/Ml)) 17 units SC BID [facility] Last Admin: 07/03/17 17:24 Dose: Not Given Losartan Potassium (Cozaar) 25 mg PO DAILY [facility] Last Admin: 07/03/17 09:06 Dose: 25 mg Magnesium Hydroxide (Milk Of Magnesia) 30 ml PO DAILY PRN PRN Reason: Constipation Metformin HCl (Glucophage) 1,000 mg PO BID [facility] Last Admin: 07/01/17 17:46 Dose: 1,000 mg Pantoprazole Sodium (Protonix Ec Tab) 40 mg PO DAILY [facility] Last Admin: 07/03/17 09:30 Dose: Not Given Sitagliptin Phosphate (Januvia) 50 mg PO DAILY [facility] Last Admin: 07/01/17 09:55 Dose: 50 mg - Labs Labs: 07/03/17 06:30 07/03/17 06:30 PT 11.9 SECONDS (9.7-12.2) 06/29/17 12:22 INR 1.1 06/29/17 12:22 APTT 31 SECONDS (21-34) 06/29/17 12:22 - Constitutional Appears: Well - Head Exam Head Exam: ATRAUMATIC, NORMAL INSPECTION, NORMOCEPHALIC - Eye Exam Eye Exam: EOMI, Normal appearance, PERRL Pupil Exam: NORMAL ACCOMODATION, PERRL - ENT Exam ENT Exam: Mucous Membranes Moist, Normal Exam - Neck Exam Neck Exam: Full ROM, Normal Inspection. absent: Lymphadenopathy - Respiratory Exam Respiratory Exam: Decreased Breath Sounds - Cardiovascular Exam Cardiovascular Exam: REGULAR RHYTHM, +S1, +S2 - GI/Abdominal Exam GI & Abdominal Exam: Soft, Diminished Bowel Sounds - Rectal Exam Rectal Exam: Deferred
[2017-07-04] MEDS: HYDROmorphone 0.5 mg/0.5 ml ISec IVP PRN (07:44)
[2017-07-04] MEDS: (Novolog) Insulin Aspart, Recombinant 100 u/ml 10 ml vial SC SCH ×4 (07:55→21:42)
[2017-07-04 08:06] LABS: BASO % 0.4 % (0.0-2.0); EOS # 0.1 K/uL (0.0-0.7); HEMATOCRIT 33.7 % (34.0-47.0); LYMPH # 1.3 K/uL (1.0-4.3); LYMPH % 12.7 % (20.0-40.0); MEAN CELL VOLUME 90.2 fL (81.0-99.0); MEAN CORPUSCULAR HEMOGLOBIN 31.7 pg (27.0-31.0); MEAN CORPUSCULAR HGB CONC 35.1 g/dL (33.0-37.0); MEAN PLATELET VOLUME 8.6 fL (7.2-11.7); MONO # 0.6 K/uL (0.0-0.8); MONO % 6.2 % (0.0-10.0); RED CELL DISTRIBUTION WIDTH 13.5 % (11.5-14.5)
[2017-07-04 08:19] LABS: CHLORIDE 95 mmol/L (98-107); SODIUM 131 mmol/L (132-148)
[2017-07-04 08:20] LABS: POTASSIUM 3.8 mmol/L (3.6-5.2)
[2017-07-04 08:22] LABS: ALKALINE PHOSPHATASE 99 U/L (38-126); AST/SGOT 18 U/L (14-36); BILIRUBIN,TOTAL 0.8 mg/dL (0.2-1.3); BLOOD UREA NITROGEN 7 mg/dL (7-17); CARBON DIOXIDE 26 mmol/L (22-30); GFR AFRICAN-AMERICAN > 60; GLUCOSE,RANDOM 316 mg/dL (65-105); TOTAL PROTEIN 6.5 g/dL (6.3-8.3)
[2017-07-04 08:23] LABS: ALT/SGPT 27 U/L (9-52); CALCIUM 8.2 mg/dl (8.6-10.4)
[2017-07-04] MEDS: Pantoprazole 40 mg EC Tab PO SCH (09:17)
[2017-07-04] MEDS: (Novolog Mix 70/30) Insulin Aspart/Insulin Aspar 100 units/ml SC SCH ×2 (09:21→17:09)
--- NOTE | 2017-07-04 09:30 | RAD ---
PROCEDURE: Left Ankle Radiographs. HISTORY: s/p left ankle surgery COMPARISON: Comparison is made to the previous exam dated 06/29/2017 FINDINGS: BONES: Status post internal fixation at the distal left tibia and fibula. The bones are seen at normal alignment. The hardware are seen at appropriate position. JOINTS: Mild osteoarthritis. Ankle mortise maintained. Talar dome intact SOFT TISSUES: Mild soft tissue swelling. OTHER FINDINGS: The left ankle seen in cast which limits the evaluation for fine details. IMPRESSION: Status post internal fixation at the previously noted medial and lateral malleolus fractures.
--- NOTE | 2017-07-04 15:30 | CP.PCM.PN ---
Subjective - Date & Time of Evaluation Date of Evaluation: 07/04/17 Time of Evaluation: 11:40 - Subjective Subjective: clinically same Objective - Vital Signs/Intake and Output Vital Signs (last 24 hours): Temp Pulse Resp BP Pulse Ox 98.6 F 74 18 162/72 H 100 07/04/17 07:00 07/04/17 07:00 07/04/17 07:00 07/04/17 07:00 07/04/17 07:00 - Medications Medications: Current Medications Acetaminophen (Tylenol 325mg Tab) 650 mg PO Q4 PRN PRN Reason: Fever >100.4 F Last Admin: 06/30/17 14:07 Dose: 650 mg Acetaminophen (Tylenol 325mg Tab) 650 mg PO Q4 PRN PRN Reason: Pain, Mild (1-3) Last Admin: 07/04/17 11:36 Dose: 650 mg Amlodipine Besylate (Norvasc) 10 mg PO DAILY [facility] Last Admin: 07/04/17 09:17 Dose: 10 mg Glucagon (Glucagen Diagnostic Kit) 1 mg SC ONCE PRN PRN Reason: HYPOGLYCEMIA Glycerin (Glycerin Adult Suppository) 1 sup RC DAILY PRN PRN Reason: Constipation Hydrochlorothiazide (Microzide) 12.5 mg PO DAILY [facility] Last Admin: 07/04/17 09:16 Dose: 12.5 mg Insulin Aspart (Novolog) 0 unit SC ACHS [facility] PRN Reason: Protocol Last Admin: 07/04/17 12:00 Dose: 6 unit Insulin Aspart (Novolog Mix 70/30 (70/30 Units/Ml)) 17 units SC BID [facility] Last Admin: 07/04/17 09:21 Dose: 17 units Losartan Potassium (Cozaar) 25 mg PO DAILY [facility] Last Admin: 07/04/17 09:17 Dose: 25 mg Magnesium Hydroxide (Milk Of Magnesia) 30 ml PO DAILY PRN PRN Reason: Constipation Metformin HCl (Glucophage) 1,000 mg PO BID [facility] Last Admin: 07/01/17 17:46 Dose: 1,000 mg Pantoprazole Sodium (Protonix Ec Tab) 40 mg PO DAILY [facility] Last Admin: 07/04/17 09:17 Dose: 40 mg Sitagliptin Phosphate (Januvia) 50 mg PO DAILY [facility] Last Admin: 07/01/17 09:55 Dose: 50 mg - Labs Labs: 07/04/17 07:52 07/04/17 07:52 PT 11.9 SECONDS (9.7-12.2) 06/29/17 12:22 INR 1.1 06/29/17 12:22 APTT 31 SECONDS (21-34) 06/29/17 12:22 - Constitutional Appears: Well - Head Exam Head Exam: ATRAUMATIC, NORMAL INSPECTION, NORMOCEPHALIC - Eye Exam Eye Exam: EOMI, Normal appearance, PERRL Pupil Exam: NORMAL ACCOMODATION, PERRL - ENT Exam ENT Exam: Mucous Membranes Moist, Normal Exam - Neck Exam Neck Exam: Full ROM, Normal Inspection. absent: Lymphadenopathy - Respiratory Exam Respiratory Exam: Decreased Breath Sounds - Cardiovascular Exam Cardiovascular Exam: REGULAR RHYTHM, +S1, +S2 - GI/Abdominal Exam GI & Abdominal Exam: Soft, Diminished Bowel Sounds - Rectal Exam Rectal Exam: Deferred
--- NOTE | 2017-07-04 16:18 | CP.PCM.PN ---
Subjective - Date & Time of Evaluation Date of Evaluation: 07/04/17 Time of Evaluation: 16:14 - Subjective Subjective: Podiatry progress note for Dr. Malik 71 y/o female seen at bedside 1 day s/p L ankle ORIF. Patient is AAOx3 and is in NAD. Patient states that she has pain to her left ankle but she is managing it well with the medications. Patient denies of any acute overnight events. Patient denies of any recent F/N/V/C/SOB/CP today. Patent denies of any other pedal complains at this time. Objective - Vital Signs/Intake and Output Vital Signs (last 24 hours): Temp Pulse Resp BP Pulse Ox 98.5 F 89 20 152/71 H 99 07/04/17 15:05 07/04/17 15:05 07/04/17 15:05 07/04/17 15:05 07/04/17 15:05 Intake and Output: 07/04/17 07/04/17 06:59 18:59 Intake Total 350 Balance 350 - Medications Medications: Current Medications Acetaminophen (Tylenol 325mg Tab) 650 mg PO Q4 PRN PRN Reason: Fever >100.4 F Last Admin: 06/30/17 14:07 Dose: 650 mg Acetaminophen (Tylenol 325mg Tab) 650 mg PO Q4 PRN PRN Reason: Pain, Mild (1-3) Last Admin: 07/04/17 11:36 Dose: 650 mg Amlodipine Besylate (Norvasc) 10 mg PO DAILY [facility] Last Admin: 07/04/17 09:17 Dose: 10 mg Glucagon (Glucagen Diagnostic Kit) 1 mg SC ONCE PRN PRN Reason: HYPOGLYCEMIA Glycerin (Glycerin Adult Suppository) 1 sup RC DAILY PRN PRN Reason: Constipation Hydrochlorothiazide (Microzide) 12.5 mg PO DAILY [facility] Last Admin: 07/04/17 09:16 Dose: 12.5 mg Insulin Aspart (Novolog) 0 unit SC ACHS [facility] PRN Reason: Protocol Last Admin: 07/04/17 12:00 Dose: 6 unit Insulin Aspart (Novolog Mix 70/30 (70/30 Units/Ml)) 17 units SC BID [facility] Last Admin: 07/04/17 09:21 Dose: 17 units Losartan Potassium (Cozaar) 25 mg PO DAILY [facility] Last Admin: 07/04/17 09:17 Dose: 25 mg Magnesium Hydroxide (Milk Of Magnesia) 30 ml PO DAILY PRN PRN Reason: Constipation Metformin HCl (Glucophage) 1,000 mg PO BID [facility] Last Admin: 07/01/17 17:46 Dose: 1,000 mg Pantoprazole Sodium (Protonix Ec Tab) 40 mg PO DAILY [facility] Last Admin: 07/04/17 09:17 Dose: 40 mg Sitagliptin Phosphate (Januvia) 50 mg PO DAILY [facility] Last Admin: 07/01/17 09:55 Dose: 50 mg - Labs Labs: 07/04/17 07:52 07/04/17 07:52 PT 11.9 SECONDS (9.7-12.2) 06/29/17 12:22 INR 1.1 06/29/17 12:22 APTT 31 SECONDS (21-34) 06/29/17 12:22 - Constitutional Appears: Well, Non-toxic, No Acute Distress - Extremities Exam Additional comments: Cast is clean, dry and intact. Active ROM at MTPJ intact. Cap regill time < 3 sec to all digits. - Neurological Exam Neurological Exam: Alert, Awake, Oriented x3 - Psychiatric Exam Psychiatric exam: Normal Affect, Normal Mood Assessment and Plan - Assessment and Plan (Free Text) Assessment: 71 year old female 1 day s/p left ankle ORIF Plan: Patient seen and evaluated at bedside Patient discussed in details with attending Dr. Malik Vitals and labs reviewed = afebrile Continue pain management Podiatry to follow patient while in-house
[2017-07-05 07:28] LABS: BASO % 0.3 % (0.0-2.0); EOS # 0.1 K/uL (0.0-0.7); EOS % 0.8 % (0.0-4.0); HEMATOCRIT 37.9 % (34.0-47.0); LYMPH # 1.8 K/uL (1.0-4.3); LYMPH % 14.2 % (20.0-40.0); MEAN CORPUSCULAR HEMOGLOBIN 31.2 pg (27.0-31.0); MEAN CORPUSCULAR HGB CONC 34.3 g/dL (33.0-37.0); MEAN PLATELET VOLUME 9.1 fL (7.2-11.7); MONO # 0.7 K/uL (0.0-0.8); MONO % 5.7 % (0.0-10.0); RED CELL DISTRIBUTION WIDTH 13.3 % (11.5-14.5)
[2017-07-05] MEDS: (Novolog) Insulin Aspart, Recombinant 100 u/ml 10 ml vial SC SCH ×4 (08:00→21:44)
[2017-07-05 08:07] LABS: CHLORIDE 96 mmol/L (98-107)
[2017-07-05 08:08] LABS: POTASSIUM 3.4 mmol/L (3.6-5.2); SODIUM 132 mmol/L (132-148)
[2017-07-05 08:10] LABS: ALB/GLOB RATIO 0.9 (1.0-2.1); ALKALINE PHOSPHATASE 112 U/L (38-126); AST/SGOT 24 U/L (14-36); BILIRUBIN,TOTAL 0.8 mg/dL (0.2-1.3); BLOOD UREA NITROGEN 9 mg/dL (7-17); CARBON DIOXIDE 26 mmol/L (22-30); GFR AFRICAN-AMERICAN > 60
[2017-07-05 08:11] LABS: ALT/SGPT 21 U/L (9-52); CALCIUM 8.5 mg/dl (8.6-10.4); GLUCOSE,RANDOM 262 mg/dL (65-105)
[2017-07-05] MEDS: Pantoprazole 40 mg EC Tab PO SCH (09:38)
[2017-07-05] MEDS: (Novolog Mix 70/30) Insulin Aspart/Insulin Aspar 100 units/ml SC SCH ×2 (10:00→17:26)
--- NOTE | 2017-07-05 11:24 | CP.PCM.PN ---
Subjective - Date & Time of Evaluation Date of Evaluation: 07/05/17 Time of Evaluation: 11:00 - Subjective Subjective: clinically same Objective - Vital Signs/Intake and Output Vital Signs (last 24 hours): Temp Pulse Resp BP Pulse Ox 99.1 F 108 H 20 118/57 L 97 07/05/17 07:00 07/05/17 07:00 07/05/17 07:00 07/05/17 07:00 07/05/17 07:00 Intake and Output: 07/05/17 07/05/17 06:59 18:59 Intake Total 900 Balance 900 - Medications Medications: Current Medications Acetaminophen (Tylenol 325mg Tab) 650 mg PO Q4 PRN PRN Reason: Fever >100.4 F Last Admin: 06/30/17 14:07 Dose: 650 mg Acetaminophen (Tylenol 325mg Tab) 650 mg PO Q4 PRN PRN Reason: Pain, Mild (1-3) Last Admin: 07/05/17 05:33 Dose: 650 mg Amlodipine Besylate (Norvasc) 10 mg PO DAILY [facility] Last Admin: 07/05/17 09:38 Dose: 10 mg Glucagon (Glucagen Diagnostic Kit) 1 mg SC ONCE PRN PRN Reason: HYPOGLYCEMIA Glycerin (Glycerin Adult Suppository) 1 sup RC DAILY PRN PRN Reason: Constipation Hydrochlorothiazide (Microzide) 12.5 mg PO DAILY [facility] Last Admin: 07/05/17 09:38 Dose: 12.5 mg Insulin Aspart (Novolog) 0 unit SC ACHS [facility] PRN Reason: Protocol Last Admin: 07/05/17 08:00 Dose: 6 unit Insulin Aspart (Novolog Mix 70/30 (70/30 Units/Ml)) 17 units SC BID [facility] Last Admin: 07/04/17 17:09 Dose: 17 units Losartan Potassium (Cozaar) 25 mg PO DAILY [facility] Last Admin: 07/05/17 09:38 Dose: 25 mg Magnesium Hydroxide (Milk Of Magnesia) 30 ml PO DAILY PRN PRN Reason: Constipation Metformin HCl (Glucophage) 1,000 mg PO BID [facility] Last Admin: 07/01/17 17:46 Dose: 1,000 mg Pantoprazole Sodium (Protonix Ec Tab) 40 mg PO DAILY [facility] Last Admin: 07/05/17 09:38 Dose: 40 mg Sitagliptin Phosphate (Januvia) 50 mg PO DAILY [facility] Last Admin: 07/01/17 09:55 Dose: 50 mg - Labs Labs: 07/05/17 07:15 07/05/17 07:15 PT 11.9 SECONDS (9.7-12.2) 06/29/17 12:22 INR 1.1 06/29/17 12:22 APTT 31 SECONDS (21-34) 06/29/17 12:22 - Constitutional Appears: Well - Head Exam Head Exam: ATRAUMATIC, NORMAL INSPECTION, NORMOCEPHALIC - Eye Exam Eye Exam: EOMI, Normal appearance, PERRL Pupil Exam: NORMAL ACCOMODATION, PERRL - ENT Exam ENT Exam: Mucous Membranes Moist, Normal Exam - Neck Exam Neck Exam: Full ROM, Normal Inspection. absent: Lymphadenopathy - Respiratory Exam Respiratory Exam: Decreased Breath Sounds - Cardiovascular Exam Cardiovascular Exam: REGULAR RHYTHM, +S1, +S2 - GI/Abdominal Exam GI & Abdominal Exam: Soft, Diminished Bowel Sounds - Rectal Exam Rectal Exam: Deferred
[2017-07-05] MEDS ORDERED: Oxycodone/Acetaminophen 5/325 mg Tab PO PRN (11:49)
[2017-07-05] MEDS: Oxycodone/Acetaminophen 5/325 mg Tab PO PRN (12:09)
--- NOTE | 2017-07-05 12:50 | RAD ---
PROCEDURE: Intraoperative Fluoroscopy. HISTORY: LEFT ANKLE FX FINDINGS: Fluoroscopic assistance was provided for close reduction left ankle fracture. Please refer to the operative report from during the procedure: 2 minutes 20.4 seconds.
--- NOTE | 2017-07-05 13:27 | CP.PCM.PN ---
Subjective - Date & Time of Evaluation Date of Evaluation: 07/05/17 Time of Evaluation: 13:25 - Subjective Subjective: Podiatry progress note for Dr. Malik 71 y/o female seen at bedside 2 days s/p L ankle ORIF. Patient is AAOx3 and is in NAD. Patient states that she has pain to her left ankle but she is managing it well with the medications. Patient denies of any acute overnight events. Patient denies of any recent F/N/V/C/SOB/CP today. Patent denies of any other pedal complains at this time. Objective - Vital Signs/Intake and Output Vital Signs (last 24 hours): Temp Pulse Resp BP Pulse Ox 99.1 F 108 H 20 118/57 L 97 07/05/17 07:00 07/05/17 07:00 07/05/17 07:00 07/05/17 07:00 07/05/17 07:00 Intake and Output: 07/05/17 07/05/17 06:59 18:59 Intake Total 900 Balance 900 - Medications Medications: Current Medications Acetaminophen (Tylenol 325mg Tab) 650 mg PO Q4 PRN PRN Reason: Fever >100.4 F Last Admin: 06/30/17 14:07 Dose: 650 mg Acetaminophen (Tylenol 325mg Tab) 650 mg PO Q4 PRN PRN Reason: Pain, Mild (1-3) Last Admin: 07/05/17 05:33 Dose: 650 mg Amlodipine Besylate (Norvasc) 10 mg PO DAILY [facility] Last Admin: 07/05/17 09:38 Dose: 10 mg Glucagon (Glucagen Diagnostic Kit) 1 mg SC ONCE PRN PRN Reason: HYPOGLYCEMIA Glycerin (Glycerin Adult Suppository) 1 sup RC DAILY PRN PRN Reason: Constipation Hydrochlorothiazide (Microzide) 12.5 mg PO DAILY [facility] Last Admin: 07/05/17 09:38 Dose: 12.5 mg Insulin Aspart (Novolog) 0 unit SC ACHS [facility] PRN Reason: Protocol Last Admin: 07/05/17 08:00 Dose: 6 unit Insulin Aspart (Novolog Mix 70/30 (70/30 Units/Ml)) 17 units SC BID [facility] Last Admin: 07/05/17 10:00 Dose: Not Given Losartan Potassium (Cozaar) 25 mg PO DAILY [facility] Last Admin: 07/05/17 09:38 Dose: 25 mg Magnesium Hydroxide (Milk Of Magnesia) 30 ml PO DAILY PRN PRN Reason: Constipation Metformin HCl (Glucophage) 1,000 mg PO BID [facility] Last Admin: 07/01/17 17:46 Dose: 1,000 mg Oxycodone/Acetaminophen (Percocet 5/325 Mg Tab) 1 tab PO Q6H PRN PRN Reason: Pain, moderate (4-7) Stop: 07/08/17 11:50 Oxycodone/Acetaminophen (Percocet 5/325 Mg Tab) 2 tab PO Q4H PRN PRN Reason: Pain, severe (8-10) Stop: 07/08/17 11:50 Last Admin: 07/05/17 12:09 Dose: 2 tab Pantoprazole Sodium (Protonix Ec Tab) 40 mg PO DAILY [facility] Last Admin: 07/05/17 09:38 Dose: 40 mg Sitagliptin Phosphate (Januvia) 50 mg PO DAILY [facility] Last Admin: 07/01/17 09:55 Dose: 50 mg - Labs Labs: 07/05/17 07:15 07/05/17 07:15 PT 11.9 SECONDS (9.7-12.2) 06/29/17 12:22 INR 1.1 06/29/17 12:22 APTT 31 SECONDS (21-34) 06/29/17 12:22 - Constitutional Appears: Well, Non-toxic, No Acute Distress - Extremities Exam Additional comments: Splint is clean, dry and intact. Active ROM at MTPJ intact. Cap regill time < 3 sec to all digits. - Neurological Exam Neurological Exam: Alert, Awake, Oriented x3 - Psychiatric Exam Psychiatric exam: Normal Affect, Normal Mood Assessment and Plan - Assessment and Plan (Free Text) Assessment: 71 year old female 2 days s/p left ankle ORIF Plan: Patient seen and evaluated at bedside Patient discussed in details with attending Dr. Malik Vitals and labs reviewed = afebrile and WBC @ 13. H&H WNL Continue pain management Podiatry to follow patient while in-house
[2017-07-05] MEDS ORDERED: Potassium Chloride 10 mEq ER Tab PO STA (19:01)
--- NOTE | 2017-07-06 07:24 | CP.PCM.PN ---
Subjective - Date & Time of Evaluation Date of Evaluation: 07/06/17 Time of Evaluation: 07:23 - Subjective Subjective: PGY-2 note for 's service: Pt seen and examined at bedside. Nursing reports patient with no acute events overnight. She is POD#3 left ankle ORIF. Patient found lying in bed. She reports continued 10/10 pain in left leg. Nursing states she is only taking tylenol and not percocet for pain. Patient advised to try percocet to see if her pain will be better controlled. She denies fever, chills, chest pain, SOB, N /V/D/C. [facility] Objective - Vital Signs/Intake and Output Vital Signs (last 24 hours): Temp Pulse Resp BP Pulse Ox 98.6 F 92 H 20 131/61 95 07/05/17 23:00 07/05/17 23:00 07/05/17 23:00 07/05/17 23:00 07/05/17 23:00 Intake and Output: 07/06/17 07/06/17 06:59 18:59 Intake Total 1000 Balance 1000 - Medications Medications: Current Medications Acetaminophen (Tylenol 325mg Tab) 650 mg PO Q4 PRN PRN Reason: Fever >100.4 F Last Admin: 06/30/17 14:07 Dose: 650 mg Acetaminophen (Tylenol 325mg Tab) 650 mg PO Q4 PRN PRN Reason: Pain, Mild (1-3) Last Admin: 07/06/17 04:21 Dose: 650 mg Amlodipine Besylate (Norvasc) 10 mg PO DAILY [facility] Last Admin: 07/05/17 09:38 Dose: 10 mg Glucagon (Glucagen Diagnostic Kit) 1 mg SC ONCE PRN PRN Reason: HYPOGLYCEMIA Glycerin (Glycerin Adult Suppository) 1 sup RC DAILY PRN PRN Reason: Constipation Hydrochlorothiazide (Microzide) 12.5 mg PO DAILY [facility] Last Admin: 07/05/17 09:38 Dose: 12.5 mg Insulin Aspart (Novolog) 0 unit SC ACHS [facility] PRN Reason: Protocol Last Admin: 07/05/17 21:44 Dose: Not Given Insulin Aspart (Novolog Mix 70/30 (70/30 Units/Ml)) 17 units SC BID [facility] Last Admin: 07/05/17 17:26 Dose: 17 units Losartan Potassium (Cozaar) 25 mg PO DAILY [facility] Last Admin: 07/05/17 09:38 Dose: 25 mg Magnesium Hydroxide (Milk Of Magnesia) 30 ml PO DAILY PRN PRN Reason: Constipation Metformin HCl (Glucophage) 1,000 mg PO BID [facility] Last Admin: 07/01/17 17:46 Dose: 1,000 mg Oxycodone/Acetaminophen (Percocet 5/325 Mg Tab) 1 tab PO Q6H PRN PRN Reason: Pain, moderate (4-7) Stop: 07/08/17 11:50 Last Admin: 07/05/17 23:21 Dose: 1 tab Oxycodone/Acetaminophen (Percocet 5/325 Mg Tab) 2 tab PO Q4H PRN PRN Reason: Pain, severe (8-10) Stop: 07/08/17 11:50 Last Admin: 07/05/17 12:09 Dose: 2 tab Pantoprazole Sodium (Protonix Ec Tab) 40 mg PO DAILY [facility] Last Admin: 07/05/17 09:38 Dose: 40 mg Sitagliptin Phosphate (Januvia) 50 mg PO DAILY [facility] Last Admin: 07/01/17 09:55 Dose: 50 mg - Labs Labs: 07/05/17 07:15 07/05/17 07:15 PT 11.9 SECONDS (9.7-12.2) 06/29/17 12:22 INR 1.1 06/29/17 12:22 APTT 31 SECONDS (21-34) 06/29/17 12:22 - Constitutional Appears: Non-toxic, No Acute Distress - Head Exam Head Exam: ATRAUMATIC, NORMOCEPHALIC - Eye Exam Eye Exam: EOMI. absent: Scleral icterus - ENT Exam ENT Exam: Mucous Membranes Moist - Respiratory Exam Respiratory Exam: Clear to Ausculation Bilateral, NORMAL BREATHING PATTERN. absent: Rales, Rhonchi, Wheezes - Cardiovascular Exam Cardiovascular Exam: REGULAR RHYTHM, +S1, +S2 - GI/Abdominal Exam GI & Abdominal Exam: Soft, Normal Bowel Sounds. absent: Tenderness - Extremities Exam Extremities Exam: absent: Normal Inspection Additional comments: Wound dressing C/d/i Cap refill < 2 sec, Sensation intact - Neurological Exam Neurological Exam: Alert, Awake, Oriented x3 Assessment and Plan - Assessment and Plan (Free Text) Plan: Left ankle fracture Podiatry Dr. Malik consulted, help appreciated. Ortho Dr. Pizano consulted, help appreciated. Xray shows left ankle trimalleolar fracture. S/P closed reduction and requires ORIF, scheduled on 07/03. MUGA showed no abnormal findings; cardiac clearance for surgery ECHO showed preserve EF with grade one diastolic dysfunction. -medically cleared -cardio cleared -will f/u s/p surgery; pain control as per podiatry Tylenol 325mg PO Q4H PRN mild pain Percocet 5/325mg PO 1 tab (moderate) 2 tabs (severe pain) HTN Well controlled Continue Norvasc 10mg PO daily, HCTZ 12.5mg PO daily, Cozaar 25mg PO daily. DM BG elevated, will seek to restart home meds Restart home Januvia 50mg PO Daily, Metformin 1000mg PO BID [facility]ISS, accuchecks. Novolog 70/30 15U SC BID. Prophylactic measure Protonix, SCD. Disposition: Pt for discharge back to [place] today. Yousif Meng PGY-2 Management as per .
[2017-07-06 07:25] LABS: BASO # 0.1 K/uL (0.0-0.2); BASO % 0.6 % (0.0-2.0); EOS # 0.2 K/uL (0.0-0.7); EOS % 1.9 % (0.0-4.0); HEMATOCRIT 34.4 % (34.0-47.0); LYMPH % 21.5 % (20.0-40.0); MEAN CELL VOLUME 90.8 fL (81.0-99.0); MEAN CORPUSCULAR HEMOGLOBIN 31.4 pg (27.0-31.0); MEAN CORPUSCULAR HGB CONC 34.5 g/dL (33.0-37.0); MEAN PLATELET VOLUME 9.3 fL (7.2-11.7); MONO # 0.6 K/uL (0.0-0.8); MONO % 6.5 % (0.0-10.0); RED CELL DISTRIBUTION WIDTH 13.4 % (11.5-14.5); WHITE BLOOD COUNT 9.4 K/uL (4.8-10.8)
[2017-07-06 07:40] LABS: CHLORIDE 96 mmol/L (98-107)
[2017-07-06 07:41] LABS: POTASSIUM 4.3 mmol/L (3.6-5.2); SODIUM 130 mmol/L (132-148)
[2017-07-06 07:44] LABS: ALB/GLOB RATIO 0.9 (1.0-2.1); ALKALINE PHOSPHATASE 105 U/L (38-126); ALT/SGPT 24 U/L (9-52); AST/SGOT 22 U/L (14-36); BILIRUBIN,TOTAL 0.8 mg/dL (0.2-1.3); BLOOD UREA NITROGEN 11 mg/dL (7-17); CALCIUM 8.6 mg/dl (8.6-10.4); CARBON DIOXIDE 27 mmol/L (22-30); GFR AFRICAN-AMERICAN > 60; GLUCOSE,RANDOM 369 mg/dL (65-105); TOTAL PROTEIN 6.7 g/dL (6.3-8.3)
[2017-07-06 07:55] VITALS: RESP 18
[2017-07-06] MEDS: (Novolog) Insulin Aspart, Recombinant 100 u/ml 10 ml vial SC SCH ×3 (08:30→16:53)
[2017-07-06] MEDS: Pantoprazole 40 mg EC Tab PO SCH (09:09)
[2017-07-06] MEDS: (Novolog Mix 70/30) Insulin Aspart/Insulin Aspar 100 units/ml SC SCH (09:16)
--- NOTE | 2017-07-06 09:43 | PCM.OP ---
Operative Report - Operative Report Date of Surgery/Procedure: 07/03/17 Time of Surgery/Procedure: 15:30 Surgeon: King Suarez Head Char Filter Tank Tender: Endy PGY 3, Van PGY 2 Anesthesia/Sedation: Eren Pre-Operative Diagnosis: Left Trimalleolar Displaced Ankle Fracture Post-Operative Diagnosis: Same Indication for Surgery: This patient is a 71 y/o female with the above mentioned diagnosis. After exhausting all conserviative treatment the patient requires surgical intervention for hte conditions listed above. After discussion of all risks beneifts and complications for the proposed procedure the patient signed the consent form. Pre op antibiotics were given. NPO status was confirmed prior to the procedure. Operative Findings: Patient was brought to the OR and placed on the operating room table in the supine position. A thigh tourniqutte was placed onthe patients left thigh at 350mm Hg. Following induction of general sedation the left foot and ankle was prepped and draped in the normal sterile manner; tourniquet was inflated and the procedure began. Procedure/Operation Description: Procedure #1: OPEN REDUCTION INTERNAL FIXATION OF TRIMALLEOLAR ANKLE FRACTURE. At this time attention was first directed to the lateral aspect of the patients left ankle. It is to be grossly noted that this ankle fracutre was very unstable. Before and incision was made the fracture was completely visualized with extensive use of intraop florouscopy. At this time a roughly 7cm long linear incision was made directly overlying the lateral malleloulus and extending proximally up the fibula. This incision was deepened to the level of periosteum where it was noted to be destroyed fromthe fracture and the remained periosteum was reflected away fromthe fibula completely exposing the fracture site. At this time the ankle was distractued opening the fracture site allowing for all hemostatic debris to be cleansed by manual debridement from the fractre site. The fracture was then reduced into good aligment and length and clamped into place with alligator clamps. The fracture pattern did not allow for an intra frag srew to be placed so a buttress plate was applied along the lateral aspect of th efibula to hold reduction. A 7 hole 1/3 tubular plate was placed across the fracture site and holes were filled with 3.5 locking/non locking screws. There was a 4.0 Cancellous screw placed in the distal hole of the plate into the lateral malleolus. Clamps were removed and ther was noted ot be excellent reduction. At this time attention was then redirected to the medial mall which was noted to be in good positioning after reduction of the lateral mall fracture. At this time 2 percutaneous K-wires were driving from distal to proximal across the fracture site into the tibia. The fracture was noted to fall into excellect position and 2; 4.0 Cannulated screws measuring 50mm and 42 mm were placed w/o complication across the fracture site. Placement was verified utilizing intraop floro and noted to be in good position. At this time with use of the c-arm the posterior malleolus was visualized. Another percutaneou K-wire was driven back across the fracture site from posterior to anterior in an obliqure pattern. The fracture was noted to reduce and the plafond was reformed in good position so a 36mm 4.0 screw was placed across the fracture site. At this time allscrews were verified in good position utilizing intra op C-arm. The incision sites were then flushed was copius amounts of normal sterile saline. The wounds were then closed with 2-0; 3-0; 4-0 vicryl and 4-0 nylon in the normal sterile manner w/o complication. Estimated Blood Loss: <15 Complications: none Discharge & Condition: Patient tolerated anesthesia and procedure well and w/o complication and was transported the PACU with vital signs stable and NVSI tothe left foot and ankle. This patient is to be non weightbearing to the left ankle and to keep dressings clean dry and intact. Prescriptions will be given to the pateint on floors and patient is to have Pop blocks Post operativaly for pain control. To follow up with Dr. Malik in [facility].
--- NOTE | 2017-07-06 15:58 | CP.PCM.PN ---
Subjective - Date & Time of Evaluation Date of Evaluation: 07/06/17 Time of Evaluation: 11:40 - Subjective Subjective: clinically same Objective - Vital Signs/Intake and Output Vital Signs (last 24 hours): Temp Pulse Resp BP Pulse Ox 97.8 F 72 18 140/67 98 07/06/17 07:00 07/06/17 07:00 07/06/17 07:00 07/06/17 07:00 07/06/17 07:00 Intake and Output: 07/06/17 07/06/17 06:59 18:59 Intake Total 1000 280 Balance 1000 280 - Medications Medications: Current Medications Acetaminophen (Tylenol 325mg Tab) 650 mg PO Q4 PRN PRN Reason: Fever >100.4 F Last Admin: 07/06/17 09:10 Dose: 650 mg Acetaminophen (Tylenol 325mg Tab) 650 mg PO Q4 PRN PRN Reason: Pain, Mild (1-3) Last Admin: 07/06/17 04:21 Dose: 650 mg Amlodipine Besylate (Norvasc) 10 mg PO DAILY [facility] Last Admin: 07/06/17 09:09 Dose: 10 mg Glucagon (Glucagen Diagnostic Kit) 1 mg SC ONCE PRN PRN Reason: HYPOGLYCEMIA Glycerin (Glycerin Adult Suppository) 1 sup RC DAILY PRN PRN Reason: Constipation Hydrochlorothiazide (Microzide) 12.5 mg PO DAILY [facility] Last Admin: 07/06/17 09:09 Dose: 12.5 mg Insulin Aspart (Novolog) 0 unit SC ACHS [facility] PRN Reason: Protocol Last Admin: 07/06/17 12:20 Dose: 10 unit Insulin Aspart (Novolog Mix 70/30 (70/30 Units/Ml)) 17 units SC BID [facility] Last Admin: 07/06/17 09:16 Dose: 17 units Losartan Potassium (Cozaar) 25 mg PO DAILY [facility] Last Admin: 07/06/17 09:09 Dose: 25 mg Magnesium Hydroxide (Milk Of Magnesia) 30 ml PO DAILY PRN PRN Reason: Constipation Metformin HCl (Glucophage) 1,000 mg PO BID [facility] Last Admin: 07/01/17 17:46 Dose: 1,000 mg Oxycodone/Acetaminophen (Percocet 5/325 Mg Tab) 1 tab PO Q6H PRN PRN Reason: Pain, moderate (4-7) Stop: 07/08/17 11:50 Last Admin: 07/05/17 23:21 Dose: 1 tab Oxycodone/Acetaminophen (Percocet 5/325 Mg Tab) 2 tab PO Q4H PRN PRN Reason: Pain, severe (8-10) Stop: 07/08/17 11:50 Last Admin: 07/05/17 12:09 Dose: 2 tab Pantoprazole Sodium (Protonix Ec Tab) 40 mg PO DAILY [facility] Last Admin: 07/06/17 09:09 Dose: 40 mg Sitagliptin Phosphate (Januvia) 50 mg PO DAILY [facility] Last Admin: 07/01/17 09:55 Dose: 50 mg - Labs Labs: 07/06/17 07:14 07/06/17 07:14 PT 11.9 SECONDS (9.7-12.2) 06/29/17 12:22 INR 1.1 06/29/17 12:22 APTT 31 SECONDS (21-34) 06/29/17 12:22 - Constitutional Appears: Well - Head Exam Head Exam: ATRAUMATIC, NORMAL INSPECTION, NORMOCEPHALIC - Eye Exam Eye Exam: EOMI, Normal appearance, PERRL Pupil Exam: NORMAL ACCOMODATION, PERRL - ENT Exam ENT Exam: Mucous Membranes Moist, Normal Exam - Neck Exam Neck Exam: Full ROM, Normal Inspection. absent: Lymphadenopathy - Respiratory Exam Respiratory Exam: Decreased Breath Sounds - Cardiovascular Exam Cardiovascular Exam: REGULAR RHYTHM, +S1, +S2 - GI/Abdominal Exam GI & Abdominal Exam: Soft, Diminished Bowel Sounds - Rectal Exam Rectal Exam: Deferred
[2017-07-06] MEDS: Oxycodone/Acetaminophen 5/325 mg Tab PO PRN (16:36)
[2017-07-06 17:14] VITALS: BP 145/67; PULSE 88; TEMP 98.7; O2SAT 99
--- NOTE | 2017-07-06 20:07 | CP.PCM.PN ---
Subjective - Date & Time of Evaluation Date of Evaluation: 07/06/17 Time of Evaluation: 05:10 - Subjective Subjective: Podiatry progress note for Dr. Malik 71 y/o female seen at bedside 3 days s/p L ankle ORIF. Patient is AAOx3 and is in NAD. Patient states that she has pain to her left ankle but she is managing it well with the medications. Patient denies of any acute overnight events. Patient denies of any recent F/N/V/C/SOB/CP today. Patent denies of any other pedal complains at this time. Objective - Vital Signs/Intake and Output Vital Signs (last 24 hours): Temp Pulse Resp BP Pulse Ox 98.7 F 88 18 145/67 99 07/06/17 16:00 07/06/17 16:00 07/06/17 16:00 07/06/17 16:00 07/06/17 16:00 Intake and Output: 07/06/17 07/07/17 18:59 06:59 Intake Total 280 Balance 280 - Labs Labs: 07/06/17 07:14 07/06/17 07:14 PT 11.9 SECONDS (9.7-12.2) 06/29/17 12:22 INR 1.1 06/29/17 12:22 APTT 31 SECONDS (21-34) 06/29/17 12:22 - Constitutional Appears: Well, Non-toxic, No Acute Distress - Extremities Exam Additional comments: Splint is clean, dry and intact. Active ROM at MTPJ intact. Cap regill time < 3 sec to all digits. Sensation intact to light tough at level of digits. - Neurological Exam Neurological Exam: Alert, Awake, Oriented x3 Assessment and Plan - Assessment and Plan (Free Text) Assessment: 71 year old female 3 days s/p left ankle ORIF Plan: Patient seen and evaluated at bedside Patient discussed in details with attending Dr. Malik Vitals and labs reviewed = afebrile and WBC @ 9.4 H&H WNL Continue pain management. Pt is stable from podiatric standpoint for discharge to [facility]. Pt to undergo 10 days Oral Keflex 500 BID for infection prophylazis. DVT Prophylaxis outpatient via Lovenox 40mg SC daily. 30 days dispensed. Pt will follow up with attending Dr. Malik in [facility] clinic within 14 days.
== END 2017-07-06 17:40 | DRG 494 ==
LOC: C.ER 10:34 → C.9E 13:35 → C.6T 22:16
PROVIDERS: ADMIT Internal Medicine Nephrology; ATTEND Internal Medicine Nephrology
PROC: 0QSHXZZ Reposition Left Tibia, External Approach (ICD-10-PCS; 2017-06-29)
PROC: 0QHH04Z Insertion of Internal Fixation Device into Left Tibia, Open Approach (ICD-10-PCS; 2017-07-03)
PROC: 0QSK04Z Reposition Left Fibula with Internal Fixation Device, Open Approach (ICD-10-PCS; principal; 2017-07-03 14:15)
DX: S82.852A Displaced trimalleolar fracture of left lower leg, initial encounter for closed fracture (principal); E11.649 Type 2 diabetes mellitus with hypoglycemia without coma; S82.432A Displaced oblique fracture of shaft of left fibula, initial encounter for closed fracture; S93.05XA Dislocation of left ankle joint, initial encounter; S82.55XA Nondisplaced fracture of medial malleolus of left tibia, initial encounter for closed fracture; W19.XXXA Unspecified fall, initial encounter; R55 Syncope and collapse; I10 Essential (primary) hypertension; R00.0 Tachycardia, unspecified; K21.9 Gastro-esophageal reflux disease without esophagitis; Z87.891 Personal history of nicotine dependence

== ENCOUNTER 2017-09-06 14:34 | Emergency (ER) | payer MEDICARE, MEDICAID ==
--- NOTE | 2017-09-06 14:54 | C.PDOC ---
History Of Present Illness 71 year old female sent to the ED from [facility] for evaluation of hypoglycemia. As per [place] care nursing: Patient had received all her medications in the AM, but skipped her breakfast only had milk. Then during lunch they checked her sugar which was 149, and then shortly later she was unresponsive and glucose was 31 and gave her glucagon 1 mg sugar went up to 120 and called for ambulance. Patient states she does not recall events that lead to her arrival but she knows she came by ambulance and that she is at Hospital. Patient has a posterior splint to left leg. Patient only c/o being cold, she denies fever, cough, nausea, vomit, diarrhea, urinary symptoms, back pain, numbness, weakness, headache. Time Seen by Provider: 09/06/17 14:51 History Per: Patient, EMS History/Exam Limitations: no limitations Onset/Duration Of Symptoms: Hrs Current Symptoms Are (Timing): Gone Severity: Mild Current Diabetic Medications: Oral Medication Causative (Exacerbating) Factor(s): Missed A Meal Treatment Prior To Provider Evaluation: Glucagon Given Response To Treatment: Good Response Recent travel outside of the [place]: No Additional History Per: Patient, EMS Past Medical History Reviewed: Historical Data, Nursing Documentation, Vital Signs Vital Signs: Last Vital Signs Temp 97.3 F L 09/06/17 17:00 Pulse 68 09/06/17 16:12 Resp 18 09/06/17 16:12 BP 121/59 L 09/06/17 16:12 Pulse Ox 100 09/06/17 17:27 - Medical History PMH: HTN Surgical History: No Surg Hx - [facility] Procedures INSERTION OF INT FIX INTO L TIBIA, OPEN APPROACH (06/29/17) REPOSITION LEFT FIBULA WITH INT FIX, OPEN APPROACH (06/29/17) REPOSITION LEFT TIBIA, EXTERNAL APPROACH (06/29/17) Family History: States: Unknown Family Hx - Social History Hx Alcohol Use: No Hx Substance Use: No - Immunization History Hx Tetanus Toxoid Vaccination: No Hx Influenza Vaccination: Yes Hx Pneumococcal Vaccination: No Review Of Systems Constitutional: Negative for: Fever, Chills Cardiovascular: Negative for: Chest Pain, Palpitations Respiratory: Negative for: Cough, Shortness of Breath Gastrointestinal: Negative for: Nausea, Vomiting, Abdominal Pain Musculoskeletal: Negative for: Neck Pain, Back Pain Skin: Negative for: Rash Neurological: Positive for: Altered Mental Status. Negative for: Weakness, Numbness, Dizziness Physical Exam - Physical Exam Appears: Non-toxic, No Acute Distress, Other (thin habitus, frail) Skin: Normal Color, Warm, Dry Head: Atraumatic, Normacephalic Eye(s): bilateral: Normal Inspection, PERRL Nose: No Discharge, No Deformity Oral Mucosa: Moist Neck: Normal ROM, Supple Chest: Symmetrical Cardiovascular: Rhythm Regular, No Murmur Respiratory: Normal Breath Sounds, No Rales, No Rhonchi, No Wheezing Gastrointestinal/Abdominal: Soft, No Tenderness Extremity: Normal ROM, No Pedal Edema, No Calf Tenderness, No Swelling, Other ( Posterior splint placed on left leg) Neurological/Psych: Oriented x3, Normal Speech, Other (No focal deficits) ED Course And Treatment - Laboratory Results Result Diagrams: 09/06/17 15:18 09/06/17 15:18 O2 Sat by Pulse Oximetry: 100 (On RA) Pulse Ox Interpretation: Normal - Radiology CXR: Interpreted by Me, Viewed By Me, Read By Radiologist CXR Interpretation: Yes: Other (No active disease.). No: No Acute Disease, Infiltrates Medical Decision Making Medical Decision Making: Impression : hypoglycemia, AMS Plan: * EKG * Blood work * CXR * UA * K-Dur 20 meq PO Progress: Labs reviewed, glucose >60. Potassium low will replace. Patient on heating blankey. Patient observed in the ED. Glucose maintained and temperature improved. Patient wants something for pain, her ankle hurting. Tylenol PO ordered. Case was discussed with Dr Fraser and agrees patient stable for discharge. 1750 Daughter arrives to ED and at bedside. She is made aware of all events and will accompany patient back Disposition Counseled Patient/Family Regarding: Studies Performed, Diagnosis - Disposition Referrals: Andrade Barreto MD [Staff Provider] - Disposition: HOME/ ROUTINE Disposition Time: 17:46 Additional Instructions: Please continue with your usual medications. Be sure to eat prior to taking diabetic medications or check sugar prior to. Follow up with your physician. Instructions: Diabetic Hypoglycemia (DC) - POA Present On Arrival: Poor Glycemic Control - Clinical Impression Clinical Impression: Hypoglycemia - PA / RADON INSPECTOR / Resident Statement MD/DO has reviewed & agrees with the documentation as recorded. - Scribe Statement The provider has reviewed the documentation as recorded by the Scribe Danny Winslow All medical record entries made by the Scribe were at my direction and personally dictated by me. I have reviewed the chart and agree that the record accurately reflects my personal performance of the history, physical exam, medical decision making, and the department course for this patient. I have also personally directed, reviewed, and agree with the discharge instructions and disposition.
[2017-09-06 15:14] VITALS: O2SAT 100; BMI 25.0
[2017-09-06 15:24] LABS: BASO % 0.2 % (0.0-2.0); EOS # 0.1 K/uL (0.0-0.7); EOS % 0.8 % (0.0-4.0); HEMATOCRIT 39.4 % (34.0-47.0); LYMPH % 17.8 % (20.0-40.0); MEAN CELL VOLUME 92.1 fL (81.0-99.0); MEAN CORPUSCULAR HGB CONC 33.6 g/dL (33.0-37.0); MONO # 0.3 K/uL (0.0-0.8); NRBC % 0.1 % (0.0-2.0); RED CELL DISTRIBUTION WIDTH 15.2 % (11.5-14.5); WHITE BLOOD COUNT 11.3 K/uL (4.8-10.8)
[2017-09-06 15:56] LABS: ALKALINE PHOSPHATASE 115 U/L (38-126); ALT/SGPT 89 U/L (9-52); AST/SGOT 117 U/L (14-36); BILIRUBIN,TOTAL 0.7 mg/dL (0.2-1.3); BLOOD UREA NITROGEN 9 mg/dL (7-17); CALCIUM 8.2 mg/dl (8.6-10.4); CARBON DIOXIDE 35 mmol/L (22-30); CHLORIDE 101 mmol/L (98-107); GFR AFRICAN-AMERICAN > 60; GLUCOSE,RANDOM 70 mg/dL (65-105); POTASSIUM 3.1 mmol/L (3.6-5.2); SODIUM 139 mmol/L (132-148); TOTAL PROTEIN 6.8 g/dL (6.3-8.3)
[2017-09-06] MEDS ORDERED: Potassium Chloride 20 mEq ER Tab PO STA (16:00)
[2017-09-06 16:02] LABS: ALB/GLOB RATIO 0.8 (1.0-2.1)
[2017-09-06] MEDS ORDERED: Potassium Chloride 20 mEq ER Tab PO ONE (16:10)
[2017-09-06 17:00] VITALS: TEMP 97.3
--- NOTE | 2017-09-06 17:16 | RAD ---
HISTORY: hypoglycemia COMPARISON: No prior similar study for comparison FINDINGS: LUNGS: No active pulmonary disease. PLEURA: No significant pleural effusion identified, no pneumothorax apparent. CARDIOVASCULAR: Normal. OSSEOUS STRUCTURES: No significant abnormalities. VISUALIZED UPPER ABDOMEN: Normal. OTHER FINDINGS: None. IMPRESSION: No active disease.
[2017-09-06 18:05] VITALS: BP 114/61; PULSE 88; RESP 12
== END 2017-09-06 18:15 | disposition home or self-care (01) ==
LOC: C.ER 14:34
DX: E11.649 Type 2 diabetes mellitus with hypoglycemia without coma (principal); Z79.84 Long term (current) use of oral hypoglycemic drugs; E87.6 Hypokalemia

== ENCOUNTER 2017-09-14 11:12 | Day surgery (SDC) | payer MEDICARE, MEDICAID ==
[2017-09-14] MEDS ORDERED: Propofol 10 mg/ml Inj (20 ML) ONE ×3 (14:33→15:34)
[2017-09-14] MEDS ORDERED: Lidocaine 2% Inj (20ml) ONE (14:53)
[2017-09-14] MEDS ORDERED: Bupivacaine HCl 0.5% PF (10 ml) Inj ONE (14:53)
[2017-09-14] MEDS ORDERED: ceFAZolin IV 1 gm in Dextrose 1 GM/50 ML BAG IVPB ONE (14:53)
[2017-09-14] MEDS ORDERED: Lactated Ringer's 1,000 ML IV ONE (14:55)
--- NOTE | 2017-09-14 16:09 | PCM.SURG1 ---
Surgeon's Initial Post Op Note - Surgeon's Notes Surgeon: Dr. Malik Astronautical Engineer: Delfino Schumacher PGY-3 Type of Anesthesia: IV Sedation, Local Pre-Operative Diagnosis: Left ankle non healing wound Operative Findings: see dictation Post-Operative Diagnosis: same Operation Performed: Left ankle removal of hardware and wound debridement with closure Specimen/Specimens Removed: bone left fibula Estimated Blood Loss: EBL {In ML}: 15 Blood Products Given: N/A Drains Used: No Drains Post-Op Condition: Good Date of Surgery/Procedure: 09/14/17 Time of Surgery/Procedure: 03:00
[2017-09-14] MEDS ORDERED: Oxycodone/Acetaminophen 5/325 mg Tab PO PRN (16:10)
[2017-09-14] MEDS ORDERED: HYDROmorphone 0.5 mg/0.5 ml ISec IVP PRN (16:23)
[2017-09-14 18:41] VITALS: RESP 18; TEMP 97.8; O2SAT 99
[2017-09-14 18:46] VITALS: BP 115/75; PULSE 77
--- NOTE | 2017-09-18 14:25 | OP ---
PROCEDURE DATE: 09/14/2017 PREOPERATIVE DIAGNOSIS: Left ankle nonhealing ulceration with exposed hardware. POSTOPERATIVE DIAGNOSIS: Left ankle nonhealing ulceration with exposed hardware. PROCEDURE PERFORMED: Left foot removable of hardware with wound debridement and closure. SURGEON: Amina Malik DPM WEB SITE ADMINISTRATOR: Delfino Schumacher DPM, PGY-3. ANESTHESIA ADMINISTERED BY: Dr. Brooks. TYPE OF ANESTHESIA: IV sedation with local anesthesia. INDICATION: The patient is a 71-year-old female with the above-mentioned diagnosis. The patient has exhausted all forms of conservative treatment at this time and wished to have surgical intervention for the conditions listed above. After careful explanation of risks, benefits, and complications for the proposed procedure, the patient signed the consent form. All questions and concerns were addressed at this time. Prior to taking the patient to the OR, n.p.o. status was verified and preoperative antibiotics were given. DESCRIPTION OF PROCEDURE: Patient was brought to the operating room table and placed on the operating table in supine position. No pneumatic ankle tourniquet was utilized for this procedure. Following induction of IV sedation, a local injection of 50 mL of 2% lidocaine plain was injected into the patient's left ankle following local anesthesia. The left foot and ankle were prepped and draped in normal sterile manner and the procedure began. PROCEDURE #1: Left foot removal of hardware with wound debridement and wound closure: At this time, attention was directed to the lateral aspect of the patient's left ankle, where following a cleansing and of the patient's wound, there was noted to be a large amount of distal hardware, able to be seen on the patient's lateral fibula. At this time, utilizing a 15 blade, a linear incision was made directly overlying the patient's lateral fibula directly over the plate and screws. This incision was then carried deep making sure to retract all vital neurovascular structures. At this time, the plate was then removed and the screws were all removed from the patient's lateral fibula without complications and passed from the operative field. At this time, the wound edges were then debrided off all fibrotic tissue and wound closure was attempted. The most distal aspect of the wound was not closing, so with the use of a rongeur and some osteotomes, the most lateral aspect of the patient's fibula was shaved off and this allowed for enough room for the wound to be able to be closed. This bone was also sent off to Pathology to rule out any chance of osteomyelitis. Following this, the wound was flushed with copious amounts of normal sterile saline. The wound was closed with 2-0 Prolene in the normal sterile manner. POSTOPERATIVE CONDITION: Patient tolerated the anesthesia and procedure well and was transported to the recovery room with vital signs stable and neurovascular status intact to the left foot. Patient will follow up office as previously discussed. Delfino Schumacher DPM Amina Malik DPM
== END 2017-09-14 19:25 ==
LOC: C.OPSURG 11:12
PROVIDERS: ATTEND Podiatrist Foot & Ankle Surgery
DX: T84.89XA Other specified complication of internal orthopedic prosthetic devices, implants and grafts, initial encounter (principal); L97.329 Non-pressure chronic ulcer of left ankle with unspecified severity
CPT/HCPCS: 13121; 27616; 27704; 82948; 88305; 88311; J0690; J2405; J2704; J3010; J7120

== ENCOUNTER 2017-12-05 03:32 | Inpatient (IN) | payer MEDICARE, MEDICAID ==
[2017-12-05 03:32] VITALS: BMI 25.0
--- NOTE | 2017-12-05 04:07 | C.PDOC ---
History Of Present Illness [facility] after she was found on the floor. Unable to obtain patient's history due to dementia. Patient denies pain. Patient is smiling and pleasant. - HPI Time Seen by Provider: 12/05/17 04:06 Chief Complaint (Nursing): Trauma History Per: Patient, Other (nh) History/Exam Limitations: no limitations Onset/Duration Of Symptoms: Hrs Recent travel outside of the [place]: No Past Medical History Reviewed: Historical Data, Nursing Documentation, Vital Signs Vital Signs: Last Vital Signs Temp 98.2 F 12/05/17 06:46 Pulse 82 12/05/17 06:46 Resp 20 12/05/17 06:46 BP 105/51 L 12/05/17 06:46 Pulse Ox 100 12/05/17 06:46 - Medical History PMH: Dementia, Fractures (HX:Right distal tib/fib; HX: LEFT ANKLE FRACTURE), HTN - [facility] Procedures INSERTION OF INT FIX INTO L TIBIA, OPEN APPROACH (06/29/17) REPOSITION LEFT FIBULA WITH INT FIX, OPEN APPROACH (06/29/17) REPOSITION LEFT TIBIA, EXTERNAL APPROACH (06/29/17) Family History: States: No Known Family Hx - Social History Hx Alcohol Use: No Hx Substance Use: No - Immunization History Hx Tetanus Toxoid Vaccination: No Hx Influenza Vaccination: Yes Hx Pneumococcal Vaccination: No Review Of Systems Review Of Systems: ROS cannot be obtained secondary to pt's inabilty to answer questions. (due to demenia) Physical Exam - Physical Exam Appears: Well, Non-toxic, No Acute Distress, Other ([place], alert and oriented x2) Skin: Warm, Dry Head: Normacephalic Eye(s): bilateral: Normal Inspection Oral Mucosa: Moist Neck: Supple Chest: Symmetrical, No Tenderness Cardiovascular: Rhythm Regular Respiratory: No Decreased Breath Sounds, No Rales, No Rhonchi, No Wheezing Gastrointestinal/Abdominal: Soft, No Tenderness Neurological/Psych: Normal Speech ED Course And Treatment - Laboratory Results Result Diagrams: 12/05/17 05:03 12/05/17 05:03 O2 Sat by Pulse Oximetry: 98 (RA) Pulse Ox Interpretation: Normal - Radiology CXR: Interpreted by Me, Viewed By Me CXR Interpretation: No: Infiltrates, Fracture, Pnemothorax - CT Scan/US CT Head Other Rad Studies (CT/US): Read By Radiologist, Radiology Report Reviewed CT/US Interpretation: EXAM: CT Head Without Intravenous Contrast. CLINICAL HISTORY: 72 years old, female; Pain; Headache and other: Fall; Patient HX: 17; Additional info: R/O bleed. TECHNIQUE: Axial computed tomography images of the head/brain without intravenous contrast. All CT scans at. this facility use one or more dose reduction techniques, viz.: automated exposure control; ma/ kV. adjustment per patient size (including targeted exams where dose is matched to indication; i.e. head);. or iterative reconstruction technique. 160 images are submitted. COMPARISON: CT - HEAD W/O CONTRAST 2017-04-29 10:03. FINDINGS: Brain: Cerebral and cerebellar volume loss. Patchy hypodensity is seen in the periventricular and. subcortical white matter. No hemorrhage. Ventricles: Cavum septum pellucidum and cavum septum vergae. Bones/joints: There is incomplete development of the neural arch of C1, a normal variant. Left. medial orbital wall remote fracture deformity. Soft tissues: Unremarkable. Sinuses: Unremarkable. No acute sinusitis. Mastoid air cells: Unremarkable. No mastoid effusion. Orbits: The globe and lens are intact. IMPRESSION: No evidence of an acute intracranial hemorrhage, midline shift or mass effect is identified. Progress Note: Order CT head, blood work and urinalysis. Disposition Discussed With : Maria Antonia Patel Comment: accepted the pt on his service and took over the care at Doctor Will See Patient In The: Hospital Counseled Patient/Family Regarding: Studies Performed, Diagnosis - Disposition Disposition: HOSPITALIZED Disposition Time: 04:07 Condition: FAIR Forms: [facility] (Latvian) - POA Present On Arrival: Falls Or Trauma - Clinical Impression Clinical Impression: Fall, Hypothermia - Scribe Statement The provider has reviewed the documentation as recorded by the Cheyrleibe Cheri Gonsales All medical record entries made by the Scribe were at my direction and personally dictated by me. I have reviewed the chart and agree that the record accurately reflects my personal performance of the history, physical exam, medical decision making, and the department course for this patient. I have also personally directed, reviewed, and agree with the discharge instructions and disposition. Decision To Admit - Pt Status Changed To: Hospital Disposition Of: Inpatient - Admit Certification Admit to Inpatient:: After my assessment, the patient will require hospitalization for at least two midnights. This is because of the severity of symptoms shown, intensity of services needed, and/or the medical risk in this patient being treated as an outpatient. - InPatient: Physician Admission Certification: I certify that this patient requires 2 or more midnights of care for the following reason:: After my assessment, the patient will require hospitalization for at least two midnights. This is because of the severity of symptoms shown, intensity of services needed, and/or the medical risk in this patient being treated as an outpatient. - . Bed Request Type: Regular Admitting Physician: Maria Antonia Patel Patient Diagnosis: Fall, Hypothermia
[2017-12-05 05:07] LABS: BASO % 0.2 % (0.0-2.0); EOS % 0.1 % (0.0-4.0); HEMOGLOBIN 11.9 g/dL (11.0-16.0); LYMPH # 1.3 K/uL (1.0-4.3); LYMPH % 9.1 % (20.0-40.0); MEAN CELL VOLUME 98.5 fL (81.0-99.0); MEAN CORPUSCULAR HEMOGLOBIN 33.4 pg (27.0-31.0); MEAN CORPUSCULAR HGB CONC 33.9 g/dL (33.0-37.0); MEAN PLATELET VOLUME 8.7 fL (7.2-11.7); MONO # 0.4 K/uL (0.0-0.8); MONO % 2.8 % (0.0-10.0); NEUT # 12.9 K/uL (1.8-7.0); NEUT % 87.8 % (50.0-75.0); PLATELET COUNT 306 K/uL (130-400); RBC 3.56 Mil/uL (3.80-5.20); RED CELL DISTRIBUTION WIDTH 13.1 % (11.5-14.5); WHITE BLOOD COUNT 14.7 K/uL (4.8-10.8)
[2017-12-05 05:14] LABS: PROTHROMBIN TIME 11.8 SECONDS (9.7-12.2)
[2017-12-05 05:15] LABS: INR 1.1
[2017-12-05 05:21] LABS: CALCIUM 8.1 mg/dl (8.6-10.4); GFR AFRICAN-AMERICAN > 60; GFR NON-AFRICAN AMERICAN > 60
--- NOTE | 2017-12-05 05:35 | CT ---
EXAM: CT Head Without Intravenous Contrast CLINICAL HISTORY: 72 years old, female; Pain; Headache and other: Fall; Patient HX: 04-29-17; Additional info: R/O bleed TECHNIQUE: Axial computed tomography images of the head/brain without intravenous contrast. All CT scans at this facility use one or more dose reduction techniques, viz.: automated exposure control; ma/kV adjustment per patient size (including targeted exams where dose is matched to indication; i.e. head); or iterative reconstruction technique. 160 images are submitted. COMPARISON: CT - HEAD W/O CONTRAST 2017-04-29 10:03 FINDINGS: Brain: Cerebral and cerebellar volume loss. Patchy hypodensity is seen in the periventricular and subcortical white matter. No hemorrhage. Ventricles: Cavum septum pellucidum and cavum septum vergae. Bones/joints: There is incomplete development of the neural arch of C1, a normal variant. Left medial orbital wall remote fracture deformity. Soft tissues: Unremarkable. Sinuses: Unremarkable. No acute sinusitis. Mastoid air cells: Unremarkable. No mastoid effusion. Orbits: The globe and lens are intact. IMPRESSION: No evidence of an acute intracranial hemorrhage, midline shift or mass effect is identified.
[2017-12-05 05:41] LABS: SQUAMOUS EPITHIAL < 1 /hpf (0-5); URINE BILIRUBIN NEGATIVE (NEGATIVE); URINE BLOOD NEGATIVE (NEGATIVE); URINE CLARITY Hazy (Clear); URINE COLOR Yellow (YELLOW); URINE GLUCOSE (UA) NORMAL (Normal); URINE LEUKOCYTE ESTERASE TRACE Leu/uL (Negative); URINE PROTEIN NEGATIVE (NEGATIVE); URINE UROBILINOGEN NORMAL mg/dL (0.2-1.0)
[2017-12-05 05:50] LABS: ALBUMIN 2.9 g/dL (3.5-5.0); ALT/SGPT 31 U/L (9-52); AST/SGOT 60 U/L (14-36); BLOOD UREA NITROGEN 9 mg/dL (7-17)
[2017-12-05 07:43] LABS: ANISOCYTOSIS SLIGHT; BANDS 2 % (0-2); LYMPHOCYTE 10 % (20-40); MONOCYTE 4 % (0-10); NEUTROPHIL 84 % (50-75); PLATELET ESTIMATE NORMAL (NORMAL); POIKILOCYTOSIS SLIGHT; TOTAL CELLS COUNTED 100
--- NOTE | 2017-12-05 08:48 | RAD ---
HISTORY: fall COMPARISON: None available. TECHNIQUE: Chest, one view. FINDINGS: LUNGS: No focal consolidation. Please note that chest x-ray has limited sensitivity for the detection of pulmonary masses. PLEURA: No significant pleural effusion identified. No definite pneumothorax . CARDIOVASCULAR: Heart size appears within limits. Atherosclerotic calcifications of the aortic OSSEOUS STRUCTURES: Evidence of calcific tendonitis, left shoulder. VISUALIZED UPPER ABDOMEN: Unremarkable. OTHER FINDINGS: None. IMPRESSION: No focal consolidation.
[2017-12-05] MEDS: (Novolog) Insulin Aspart, Recombinant 100 u/ml 10 ml vial SC SCH ×2 (17:15→22:32)
--- NOTE | 2017-12-05 17:44 | CP.PCM.HP ---
Present on Admission - Present on Admission Any Indicators Present on Admission: No Past Patient History - Infectious Disease Hx of Infectious Diseases: None - Past Medical History & Family History Past Medical History?: Yes - Past Social History Smoking Status: Never Smoked - CARDIAC Hx Hypertension: Yes - PULMONARY Hx Respiratory Disorders: No - NEUROLOGICAL Hx Dementia: Yes - HEENT Hx HEENT Problems: No - RENAL Hx Chronic Kidney Disease: No - ENDOCRINE/METABOLIC Hx Endocrine Disorders: Yes Hx Diabetes Mellitus Type 2: Yes - HEMATOLOGICAL/ONCOLOGICAL Hx Blood Disorders: No - INTEGUMENTARY Hx Dermatological Problems: No - MUSCULOSKELETAL/RHEUMATOLOGICAL Hx Falls: Yes Hx Fractures: Yes (HX:Right distal tib/fib; HX: LEFT ANKLE FRACTURE) - GASTROINTESTINAL Hx Gastrointestinal Disorders: Yes Hx Gastroesophageal Reflux: Yes - GENITOURINARY/GYNECOLOGICAL Hx Genitourinary Disorders: No - PSYCHIATRIC Hx Substance Use: No - SURGICAL HISTORY Hx Surgeries: Yes Hx Orthopedic Surgery: Yes (Left ankle ORIF(07/03/17)) - ANESTHESIA Hx Anesthesia: Yes Meds Allergies/Adverse Reactions: Allergies Allergy/AdvReac Type Severity Reaction Status Date / Time Iodinated Contrast- Oral and Allergy Intermediate Verified 12/05/17 03:48 IV Dye shellfish derived Allergy Intermediate Verified 12/05/17 03:48 Physical Exam - Constitutional Appears: Well - Head Exam Head Exam: ATRAUMATIC, NORMAL INSPECTION, NORMOCEPHALIC - Eye Exam Eye Exam: EOMI, Normal appearance, PERRL Pupil Exam: NORMAL ACCOMODATION, PERRL - ENT Exam ENT Exam: Mucous Membranes Moist, Normal Exam - Neck Exam Neck exam: Positive for: Normal Inspection - Respiratory Exam Respiratory Exam: Decreased Breath Sounds - Cardiovascular Exam Cardiovascular Exam: REGULAR RHYTHM, +S1, +S2 - GI/Abdominal Exam GI & Abdominal Exam: Diminished Bowel Sounds, Soft - Rectal Exam Rectal Exam: Deferred Results - Vital Signs Recent Vital Signs: Last Vital Signs Temp 98.8 F 12/05/17 16:00 Pulse 84 12/05/17 16:00 Resp 20 12/05/17 16:00 BP 112/62 12/05/17 16:00 Pulse Ox 96 12/05/17 16:00 - Labs Result Diagrams: 12/05/17 05:03 12/05/17 05:03 Labs: Laboratory Results - last 24 hr 12/05/17 12/05/17 12/05/17 05:03 05:03 05:03 WBC 14.7 H RBC 3.56 L Hgb 11.9 Hct 35.1 MCV 98.5 D MCH 33.4 H MCHC 33.9 RDW 13.1 Plt Count 306 MPV 8.7 Neut % (Auto) 87.8 H Lymph % (Auto) 9.1 L [place] % (Auto) 2.8 Eos % (Auto) 0.1 Baso % (Auto) 0.2 Neut # (Auto) 12.9 H Lymph # (Auto) 1.3 [place] # (Auto) 0.4 Eos # (Auto) 0.0 Baso # (Auto) 0.0 Neutrophils % (Manual) 84 H Band Neutrophils % 2 Lymphocytes % (Manual) 10 L Monocytes % (Manual) 4 Platelet Estimate Normal Poikilocytosis (manual Slight Anisocytosis (manual) Slight PT 11.8 INR 1.1 APTT 33 Sodium 137 Potassium 5.1 Chloride 102 Carbon Dioxide 27 Anion Gap 13 BUN 9 Creatinine 0.5 L Est GFR ( Amer) > 60 Est GFR (Non-Af Amer) > 60 POC Glucose (mg/dL) Random Glucose 194 H Calcium 8.1 L Total Bilirubin 0.9 AST 60 H D ALT 31 Alkaline Phosphatase 85 Total Protein 6.0 L Albumin 2.9 L Globulin 3.1 Albumin/Globulin Ratio 1.0 Urine Color Urine Clarity Urine pH Ur Specific [place] Urine Protein Urine Glucose (UA) Urine Ketones Urine Blood Urine Nitrate Urine Bilirubin Urine Urobilinogen Ur Leukocyte Esterase Urine WBC (Auto) Urine RBC (Auto) Ur Squamous Epith Cells 12/05/17 12/05/17 05:10 16:46 WBC RBC Hgb Hct MCV MCH MCHC RDW Plt Count MPV Neut % (Auto) Lymph % (Auto) [place] % (Auto) Eos % (Auto) Baso % (Auto) Neut # (Auto) Lymph # (Auto) [place] # (Auto) Eos # (Auto) Baso # (Auto) Neutrophils % (Manual) Band Neutrophils % Lymphocytes % (Manual) Monocytes % (Manual) Platelet Estimate Poikilocytosis (manual Anisocytosis (manual) PT INR APTT Sodium Potassium Chloride Carbon Dioxide Anion Gap BUN Creatinine Est GFR ( Amer) Est GFR (Non-Af Amer) POC Glucose (mg/dL) 376 H Random Glucose Calcium Total Bilirubin AST ALT Alkaline Phosphatase Total Protein Albumin Globulin Albumin/Globulin Ratio Urine Color Yellow Urine Clarity Hazy Urine pH 5.0 Ur Specific [place] 1.009 Urine Protein Negative Urine Glucose (UA) Normal Urine Ketones Negative Urine Blood Negative Urine Nitrate Negative Urine Bilirubin Negative Urine Urobilinogen Normal Ur Leukocyte Esterase Trace Urine WBC (Auto) 3 Urine RBC (Auto) < 1 Ur Squamous Epith Cells < 1 Assessment & Plan - Assessment and Plan (Free Text) Plan: Continue losartan Continue hydrochlorothiazide Continue same Encourage p.o. feeding Chest x-ray negative CT head negative
[2017-12-05] MEDS: (Novolog Mix 70/30) Insulin Aspart/Insulin Aspar 100 units/ml SC SCH (17:48)
[2017-12-06] MEDS ORDERED: Dextrose 50% SYRINGE Inj (50 ml) IV STA (05:15)
[2017-12-06] MEDS ORDERED: Dextrose 50% VIAL Inj (50 ml) IV ONE (05:17)
[2017-12-06] MEDS: (Novolog) Insulin Aspart, Recombinant 100 u/ml 10 ml vial SC SCH ×4 (07:36→21:45)
[2017-12-06] MEDS: (Novolog Mix 70/30) Insulin Aspart/Insulin Aspar 100 units/ml SC SCH (10:12)
[2017-12-06] MEDS: Pantoprazole 40 mg EC Tab PO SCH (10:12)
--- NOTE | 2017-12-06 16:10 | CP.PCM.PN ---
Subjective - Date & Time of Evaluation Date of Evaluation: 12/06/17 Time of Evaluation: 09:20 - Subjective Subjective: clinically same Objective - Vital Signs/Intake and Output Vital Signs (last 24 hours): Temp Pulse Resp BP Pulse Ox 98.5 F 99 H 18 98/52 L 97 12/06/17 15:10 12/06/17 15:10 12/06/17 15:10 12/06/17 15:10 12/06/17 15:10 Intake and Output: 12/06/17 12/06/17 06:59 18:59 Intake Total Balance - Medications Medications: Current Medications Acetaminophen (Tylenol 325mg Tab) 325 mg PO Q4 PRN PRN Reason: Pain, Mild (1-3) Last Admin: 12/05/17 17:48 Dose: 325 mg Amlodipine Besylate (Norvasc) 10 mg PO DAILY [facility] Last Admin: 12/06/17 10:13 Dose: 10 mg Hydrochlorothiazide (Microzide) 12.5 mg PO DAILY [facility] Last Admin: 12/06/17 10:13 Dose: 12.5 mg Insulin Aspart (Novolog) 3 unit SC ACHS [facility] Last Admin: 12/06/17 12:51 Dose: 3 unit Insulin Aspart (Novolog Mix 70/30 (70/30 Units/Ml)) 12 units SC BID [facility] Last Admin: 12/06/17 10:12 Dose: 12 units Losartan Potassium (Cozaar) 25 mg PO DAILY [facility] Last Admin: 12/06/17 10:12 Dose: 25 mg Metformin HCl (Glucophage) 1,000 mg PO BID [facility] Last Admin: 12/06/17 10:13 Dose: 1,000 mg Pantoprazole Sodium (Protonix Ec Tab) 40 mg PO DAILY [facility] Last Admin: 12/06/17 10:12 Dose: 40 mg - Labs Labs: 12/05/17 05:03 12/05/17 05:03 PT 11.8 SECONDS (9.7-12.2) 12/05/17 05:03 INR 1.1 12/05/17 05:03 APTT 33 SECONDS (21-34) 12/05/17 05:03 - Constitutional Appears: Well - Head Exam Head Exam: ATRAUMATIC, NORMAL INSPECTION, NORMOCEPHALIC - Eye Exam Eye Exam: EOMI, Normal appearance, PERRL Pupil Exam: NORMAL ACCOMODATION, PERRL - ENT Exam ENT Exam: Mucous Membranes Moist, Normal Exam - Neck Exam Neck Exam: Full ROM, Normal Inspection. absent: Lymphadenopathy - Respiratory Exam Respiratory Exam: Decreased Breath Sounds - Cardiovascular Exam Cardiovascular Exam: REGULAR RHYTHM, +S1, +S2 - GI/Abdominal Exam GI & Abdominal Exam: Soft, Diminished Bowel Sounds - Rectal Exam Rectal Exam: Deferred
[2017-12-06] MEDS ORDERED: Glucagon Recombinant 1 mg Inj IM PRN (16:15)
[2017-12-06] MEDS ORDERED: Dextrose 50% SYRINGE Inj (50 ml) IVP PRN (16:15)
[2017-12-06] MEDS ORDERED: (Novolog) Insulin Aspart, Recombinant 100 u/ml 10 ml vial SC SCH (16:30)
--- NOTE | 2017-12-06 16:48 | PCM.RRT ---
COAGULATING BATH OPERATOR Nurses Assessment - Situation Date: 12/06/17 Time COAGULATING BATH OPERATOR was called: 15:58 COAGULATING BATH OPERATOR Responder Arrival Time:: 16:02 COAGULATING BATH OPERATOR Location:: Med/Surg Room Number: 559a COAGULATING BATH OPERATOR Reason for Call: Change in Mental Status COAGULATING BATH OPERATOR Called By: RN - IV IV Inserted during COAGULATING BATH OPERATOR?: No - Respiratory COAGULATING BATH OPERATOR Delivery Method: Room Air Received Nebulizer Treatments: No Was the Patient Ventilated with Bag/Mask 100% O2?: No Secretions Suctioned?: No Was the Patient Intubated?: No Was the Patient Placed on a Ventilator?: No - Medication Medications Administered During COAGULATING BATH OPERATOR: D50W 1 1/2 amps IV (25 grams/50 ml) - Diagnostic Test Ordered EKG: No Chest X-Ray: No CT Scan: No - Stat Labs Ordered COAGULATING BATH OPERATOR Other Labs Ordered: accucheck CPR started during COAGULATING BATH OPERATOR?: No - Vital Signs Vital Signs: Rapid Response Vital Sign Blood Pressure 123/65 Pulse Rate 118 Respiratory Rate 16 Temperature 98.5 F Oxygen Saturation 97 - Recommendations Notifications: Attending Physician, Consultations I.Reason for COAGULATING BATH OPERATOR - A) Acute Change in Patient: (Select all that apply): Acute change in mental status (pt seizing) Subjective: COAGULATING BATH OPERATOR called at 16:00 2/2 pt seizing. Fingerstick revealed glucose level of < 20. The patient was initially seizing, disoriented, diaphoretic, and able to track visually, but could not break the seizure. Vitals were BP 123/65, HR 116, O2 sat 97%; 1.5amps of D50 were pushed, which broke the seizure and patient became immediately responsive, alert, and able to answer questioning. Repeat fingerstick glucose was 237. The patient was placed on D5 at 50cc/hr with accuchecks q2H. Metformin and 70/30 insulin were stopped. Prior echo revealed EF ~ 70% with clear CXR. - Respiratory Oxygen Delivery Method: Room Air - Constitutional Appears: In Acute Distress (actively seizing) - Head Head Exam: ATRAUMATIC, NORMAL INSPECTION (diaphoretic) - Eyes Eye Exam: EOMI, Normal appearance - Respiratory Exam Respiratory Exam: Clear to Ausculation Bilateral. absent: Rhonchi, Wheezes - Cardiovascular Exam Cardiovascular Exam: Tachycardia, +S1, +S2 - GI/Abdominal Exam GI & Abdominal Exam: Soft. absent: Tenderness - Neurological Exam Neurological Exam: Altered (seizing). absent: Alert (after receiving 1.5amps of D50, she became alert), Oriented x3 (oriented to person not place / time) - Extremities Exam Extremities Exam: absent: Pedal Edema, Tenderness Plan - Assessment of Findings&Treatment Plan Hypoglycemic episode * Endo consult, Dr. Krishna, f/u recs * accuchecks q2h * D50 at 50cc/hr (500cc bag) - to be discontinued after consecutive accuchecks are WNL * Hold metformin, hold scheduled insuline * Only administer ISS (sliding scale) * 6 small meals per day * hypoglycemia protocol
--- NOTE | 2017-12-07 05:15 | CON ---
DATE: ENDOCRINOLOGY CONSULT LOCATION: Room 559. HISTORY OF PRESENT ILLNESS: This is a 72-year-old female with known history of type 2 insulin requiring diabetes, on a combination of both oral hypoglycemic therapy and insulin therapy as noted and is being referred now for diabetic evaluation because of increasing bouts of symptomatic hypoglycemia as noted thereof. PAST MEDICAL HISTORY: History of type 2 insulin requiring diabetes, on a combination of NovoLog given as 3 units t.i.d. before meals and at bedtime with NovoLog 70/30 given as 12 units b.i.d. with metformin given as 1 gm b.i.d. and Januvia 50 mg once daily. History of hypertensive cardiovascular disease and dyslipidemia, history of diabetic retinopathy and polyneuropathy, history of coronary artery disease with underlying peripheral arterial disease and vasculopathy, history of senile dementia of the Alzheimer's type and is a current prison resident. FAMILY HISTORY: Positive for hypertension and heart disease.. SOCIAL HISTORY: The patient has a supportive family. She is currently a prison resident. No known substance use. REVIEW OF SYSTEMS: Not really possible at this time with the patient's current mental state. She was actually found lying on the floor briefly unresponsive with symptomatic hypoglycemia in the prison as noted. Has episodic bouts of dizziness and lightheadedness, worse on the day of admission. Her energy level has been suboptimal with easy fatigability and tiredness. No chest pain, palpitation, or PND. Her oral intake has been variable and noted to have suboptimal meal portions with occasional dyspepsia and also has habitual constipation. PHYSICAL EXAMINATION: GENERAL: An average-built female, in no apparent distress. VITAL SIGNS: Blood pressure 144/90, pulse of 70 beats per minute and regular, temperature 98, respirations 20, height is 5 feet 3 inches, weight is 135 pounds. HEENT: Head is normocephalic. Eyes anicteric with pink conjunctivae. Funduscopy is not possible at this time. Ears, nose, and throat, otherwise, normal. NECK: Supple. Thyroid gland is normal in size. No carotid bruits or cervical adenopathy. CARDIOPULMONARY: Some adynamic precordium. S1 and S2 are rapid and regular. LUNGS: Clear to auscultation. ABDOMEN: Flat, soft with positive bowel sounds. EXTREMITIES: No peripheral edema. Pulses are +2 bilaterally. LABORATORY DATA: Her chemistry shows a BUN of 9, sodium 137, potassium 5.1, chloride 102, CO2 of 27, glucose 194, and creatinine 0.5. Her glucose levels have ranged from less than 20 to 23 and 87, and 376 mg/dL. The latest glucose levels today have ranged from less than 20 to 238 mg/dL. ASSESSMENT: This is a 72-year-old female with uncontrolled and decompensated type 2 insulin requiring diabetes with symptomatic hypoglycemia and associated neuroglycopenic and hyperadrenergic, monitored the patient for the same. She also has diabetic microvascular complications of retinopathy and polyneuropathy with diabetic microvascular complications of coronary artery disease and peripheral arterial disease and vasculopathy. She also has senile dementia of Alzheimer's type as noted thereof. PLAN OF MANAGEMENT: As discussed with the staff, we will modify the current regimen and lower the insulin coverage scale to obviate hypoglycemia and detailed orders have been given for NovoLog coverage scale as ordered. We will also add Januvia given as 50 mg once daily to start tomorrow morning, and we will add glipizide given as 5 mg p.o. b.i.d. before meals, to start today as ordered. We will observe her glycemic fluctuations overnight, and if hyperglycemic levels supervene, then we will give a very low dose of basal and bolus insulin regimen as indicated. We will obtain serial chemistries and supplement accordingly as needed. We will follow up with you. Lola Krishna MD
[2017-12-07 07:58] LABS: BASO % 0.7 % (0.0-2.0); EOS # 0.1 K/uL (0.0-0.7); EOS % 1.2 % (0.0-4.0); HEMOGLOBIN 11.2 g/dL (11.0-16.0); LYMPH # 2.7 K/uL (1.0-4.3); LYMPH % 37.1 % (20.0-40.0); MEAN CELL VOLUME 98.9 fL (81.0-99.0); MEAN CORPUSCULAR HEMOGLOBIN 33.6 pg (27.0-31.0); MEAN PLATELET VOLUME 9.1 fL (7.2-11.7); MONO # 0.4 K/uL (0.0-0.8); MONO % 6.2 % (0.0-10.0); NEUT % 54.8 % (50.0-75.0); NRBC % 0.1 % (0.0-2.0); RBC 3.34 Mil/uL (3.80-5.20); RED CELL DISTRIBUTION WIDTH 13.3 % (11.5-14.5)
[2017-12-07 08:02] LABS: ALB/GLOB RATIO 0.9 (1.0-2.1); ALBUMIN 2.6 g/dL (3.5-5.0); ALT/SGPT 34 U/L (9-52); AST/SGOT 30 U/L (14-36); BLOOD UREA NITROGEN 7 mg/dL (7-17); CALCIUM 7.9 mg/dl (8.6-10.4); GFR AFRICAN-AMERICAN > 60; GFR NON-AFRICAN AMERICAN > 60; HDL CHOLESTEROL 34 mg/dL (30-70)
[2017-12-07] MEDS: (Novolog) Insulin Aspart, Recombinant 100 u/ml 10 ml vial SC SCH ×3 (08:09→17:25)
[2017-12-07 08:13] LABS: LDL CHOLESTEROL 42 mg/dL (0-129)
[2017-12-07 08:15] LABS: WHITE BLOOD COUNT 7.3 K/uL (4.8-10.8)
[2017-12-07 08:16] VITALS: RESP 20; O2SAT 100
[2017-12-07] MEDS: Pantoprazole 40 mg EC Tab PO SCH (09:47)
--- NOTE | 2017-12-07 15:39 | CP.PCM.PN ---
Subjective - Date & Time of Evaluation Date of Evaluation: 12/07/17 Time of Evaluation: 09:40 - Subjective Subjective: clinically same Objective - Vital Signs/Intake and Output Vital Signs (last 24 hours): Temp Pulse Resp BP Pulse Ox 98.1 F 69 20 116/67 100 12/07/17 08:14 12/07/17 08:14 12/07/17 08:14 12/07/17 08:14 12/07/17 08:14 Intake and Output: 12/07/17 12/07/17 06:59 18:59 Intake Total 450 400 Balance 450 400 - Medications Medications: Current Medications Acetaminophen (Tylenol 325mg Tab) 325 mg PO Q4 PRN PRN Reason: Pain, Mild (1-3) Last Admin: 12/06/17 23:50 Dose: 325 mg Amlodipine Besylate (Norvasc) 10 mg PO DAILY [facility] Last Admin: 12/07/17 09:47 Dose: 10 mg Dextrose (Dextrose 50% Inj) 0 ml IVP .STAT PRN; Protocol PRN Reason: Hypoglycemia Protocol Dextrose (Glutose 15) 0 gm PO .ONCE PRN; Protocol PRN Reason: Hypoglycemia Protocol Last Admin: 12/06/17 16:37 Dose: 15 gm Glucagon (Glucagen Diagnostic Kit) 0 mg IM .STAT PRN; Protocol PRN Reason: Hypoglycemia Protocol Hydrochlorothiazide (Microzide) 12.5 mg PO DAILY [facility] Last Admin: 12/07/17 09:48 Dose: 12.5 mg Insulin Aspart (Novolog) 0 unit SC ACHS [facility] Last Admin: 12/07/17 12:28 Dose: 5 unit Insulin Aspart (Novolog) 8 unit SC AC [facility] Insulin Glargine (Lantus) 14 unit SC HS [facility] Losartan Potassium (Cozaar) 25 mg PO DAILY [facility] Last Admin: 12/07/17 09:48 Dose: 25 mg Pantoprazole Sodium (Protonix Ec Tab) 40 mg PO DAILY [facility] Last Admin: 12/07/17 09:47 Dose: 40 mg Sitagliptin Phosphate (Januvia) 50 mg PO DAILY [facility] Last Admin: 12/07/17 09:48 Dose: 50 mg - Labs Labs: 12/07/17 07:41 12/07/17 07:41 PT 11.8 SECONDS (9.7-12.2) 12/05/17 05:03 INR 1.1 12/05/17 05:03 APTT 33 SECONDS (21-34) 12/05/17 05:03 - Constitutional Appears: Well - Head Exam Head Exam: ATRAUMATIC, NORMAL INSPECTION, NORMOCEPHALIC - Eye Exam Eye Exam: EOMI, Normal appearance, PERRL Pupil Exam: NORMAL ACCOMODATION, PERRL - ENT Exam ENT Exam: Mucous Membranes Moist, Normal Exam - Neck Exam Neck Exam: Full ROM, Normal Inspection. absent: Lymphadenopathy - Respiratory Exam Respiratory Exam: Decreased Breath Sounds - Cardiovascular Exam Cardiovascular Exam: REGULAR RHYTHM, +S1, +S2 - GI/Abdominal Exam GI & Abdominal Exam: Soft, Diminished Bowel Sounds - Rectal Exam Rectal Exam: Deferred
[2017-12-07 16:20] VITALS: BP 102/59; PULSE 79; TEMP 97.9
--- NOTE | 2017-12-07 16:26 | CP.PCM.PN ---
Subjective - Date & Time of Evaluation Date of Evaluation: 12/07/17 Time of Evaluation: 16:23 - Subjective Subjective: PT SEEN THIS AFTERNOON BY DR. Laura CARRERO DURING ROUNDS AND PT TO BE D/C BACK TO [place] TODAY PER HIM. FAMILY AT BEDSIDE AND IN AGREEMENT. CALL PLACED TO DR. ROY'S OFFICE FOR RECOMMENDATIONS OF BLOOD SUGAR CONTROL WHILE AT [facility]; PER DR. ROY PT TO CONTINUE NOVOLOG SLIDING SCALE LOW DOSE, NOVOLOG 8 UNITS SQ AC BREAKFAST, JANUVIA 25 MG PO QD, LANTUS 20 UNITS SQ HS. PT TO NO LONGER RECEIVE METFORMIN, GLUCOTROL. PT TO BE FOLLOWED BY DR. Laura CARRERO AT [facility]. SW TO ARRANGE TRANSPORTATION TONIGHT. -PLACE UNDER THE SERVICE OF DR. Opal CARRERO WHILE AT [facility]---CALL UPON ARRIVAL FOR ADMITTING ORDERS. -CONTINUE MEDICATIONS PER THE MED REC FORM. CHANGES CAN BE MADE BY DR. CARRERO. PLEASE NOTE CHANGES MADE TO DIABETIC MEDICATIONS!!! -MONITOR FOR HYPOGLYCEMIA; NOTIFY DR. Opal CARRERO IF OCCURS. -FALL PRECAUTIONS PER FACILITY PROTOCOL. -FOR FURTHER ORDERS, CONTACT DR. Laura CARRERO'S OFFICE. Objective - Vital Signs/Intake and Output Vital Signs (last 24 hours): Temp Pulse Resp BP Pulse Ox 97.9 F 79 20 102/59 L 100 12/07/17 15:50 12/07/17 15:50 12/07/17 15:50 12/07/17 15:50 12/07/17 15:50 Intake and Output: 12/07/17 12/07/17 06:59 18:59 Intake Total 450 400 Balance 450 400 - Medications Medications: Current Medications Acetaminophen (Tylenol 325mg Tab) 325 mg PO Q4 PRN PRN Reason: Pain, Mild (1-3) Last Admin: 12/06/17 23:50 Dose: 325 mg Amlodipine Besylate (Norvasc) 10 mg PO DAILY [facility] Last Admin: 12/07/17 09:47 Dose: 10 mg Dextrose (Dextrose 50% Inj) 0 ml IVP .STAT PRN; Protocol PRN Reason: Hypoglycemia Protocol Dextrose (Glutose 15) 0 gm PO .ONCE PRN; Protocol PRN Reason: Hypoglycemia Protocol Last Admin: 12/06/17 16:37 Dose: 15 gm Glucagon (Glucagen Diagnostic Kit) 0 mg IM .STAT PRN; Protocol PRN Reason: Hypoglycemia Protocol Hydrochlorothiazide (Microzide) 12.5 mg PO DAILY [facility] Last Admin: 12/07/17 09:48 Dose: 12.5 mg Insulin Aspart (Novolog) 0 unit SC ACHS [facility] Last Admin: 12/07/17 12:28 Dose: 5 unit Insulin Aspart (Novolog) 8 unit SC AC [facility] Insulin Glargine (Lantus) 14 unit SC HS [facility] Losartan Potassium (Cozaar) 25 mg PO DAILY [facility] Last Admin: 12/07/17 09:48 Dose: 25 mg Pantoprazole Sodium (Protonix Ec Tab) 40 mg PO DAILY [facility] Last Admin: 12/07/17 09:47 Dose: 40 mg Sitagliptin Phosphate (Januvia) 50 mg PO DAILY [facility] Last Admin: 12/07/17 09:48 Dose: 50 mg - Labs Labs: 12/07/17 07:41 12/07/17 07:41 PT 11.8 SECONDS (9.7-12.2) 12/05/17 05:03 INR 1.1 12/05/17 05:03 APTT 33 SECONDS (21-34) 12/05/17 05:03
[2017-12-07] MEDS ORDERED: (Novolog) Insulin Aspart, Recombinant 100 u/ml 10 ml vial SC SCH (16:30)
[2017-12-07] MEDS ORDERED: (Lantus) Insulin Glargine, Recombinant SC SCH (22:00)
== END 2017-12-07 18:25 | DRG 639 ==
LOC: C.ER 03:32 → C.9E 06:06 → C.5S 11:03
PROVIDERS: ADMIT Internal Medicine Nephrology; ATTEND Internal Medicine Nephrology
DX: E11.641 Type 2 diabetes mellitus with hypoglycemia with coma (principal); E11.40 Type 2 diabetes mellitus with diabetic neuropathy, unspecified; E11.51 Type 2 diabetes mellitus with diabetic peripheral angiopathy without gangrene; I10 Essential (primary) hypertension; F02.80 Dementia in other diseases classified elsewhere, unspecified severity, without behavioral disturbance, psychotic disturbance, mood disturbance, and anxiety; E78.5 Hyperlipidemia, unspecified; E11.319 Type 2 diabetes mellitus with unspecified diabetic retinopathy without macular edema; Z79.4 Long term (current) use of insulin; I25.10 Atherosclerotic heart disease of native coronary artery without angina pectoris; E11.65 Type 2 diabetes mellitus with hyperglycemia; G30.1 Alzheimer's disease with late onset